=== PATIENT | female | born 1955 | race Caucasian/White ===

== ENCOUNTER 2024-09-07 08:40 | Outpatient (CLI) | payer MEDICARE, OTHER, SELFPAY ==
--- NOTE | ~2024-09-07 | MM_ITS ---
MM post biopsy invasive RT, MM stereotactic specimen RT, MM stereotactic bx RT EXAMINATION: MM post biopsy invasive RT, MM stereotactic specimen RT, MM stereotactic bx RT DATE: Ivan Diehl M.D. INDICATION: Abnormal calcifications in the right breast. Stereotactic core biopsy is requested evalu ate for malignancy.] BREAST PARENCHYMAL COMPOSITION: Not dense: There are scattered areas of fibroglandular density. TECHNIQUE AND FINDINGS: The risks and potential benefits of the procedure were discussed with the patient and written informe d consent was obtained. The patient was placed in the prone position clustered at the table with the right breast in craniocaudal compression, and the area of interest was localized and targeted utiliz ing digital imaging with stereotaxis. After sterile preparation of the skin, 1% lidocaine was utilized for local anesthesia at the skin pun cture site and 1% lidocaine with epinephrine was utilized for deeper local anesthesia/is about the bi opsy site. A 9G Eviva vacuum assisted biopsy needle was advanced to the level of the calcification o f interest from a cephalad approach utilizing stereotactic guidance and a total of 6 tissue core biop sies were obtained. A specimen radiograph demonstrates that the calcifications of interest are included within the tissue cores. A tissue marker clip was then placed at the biopsy site. The needle was removed and hemosta sis was achieved. The patient tolerated the procedure well and there is no evidence of significant i mmediate complication. The patient was given verbal as well as written postprocedural instructions p rior to discharge from the department. Tissue cores were submitted to surgical pathology for histolo gic analysis. A 2-view right unilateral digital mammogram was obtained post procedure and this demonstrates that th e tissue marker clip is in expected position.] IMPRESSION: 1. Successful stereotactic biopsy of calcifications in the upper outer quadrant of the right breast with post procedure mammogram for marker placement. Please refer to pathology report for histologic analysis. Reviewed, dictated and finalized at location B. [facility] CENTER DIRECTOR IMPRESSION: 1. Successful stereotactic biopsy of calcifications in the upper outer quadran t of the right breast with post procedure mammogram for marker placement. Plea se refer to pathology report for histologic analysis. IMPRESSION: 1. Successful stereotactic biopsy of calcifications in the upper outer quadran t of the right breast with post procedure mammogram for marker placement. Plea se refer to pathology report for histologic analysis.
--- OUTSIDE RECORDS SUMMARY | 2024-09-07 08:44 | XMS_ITS | Encounter Summary ---
Author Organization [facility] Address [facility] [place] [address] Care Team Providers Care Bead Picker Name Role Phone Stefanie Hardy MD Primary Care Pr ovider Unavailable Kash Fabian MD Unavailable [phone] Adina Quiñones MD Unavailable Dillan Campoverde MD Unavailable Unavailable Sunny Martinez, SECRETARY BOARD OF COMMISSIONERS-BC, Cora Primary Care Provider Veronica Cui DO Primary Care Provider [phone] Encounter Details Date Type Department Care Team (Late st Contact Info) Description 05/10/2021 MyChart Message Enc [place] [address] [place] [address] Stefanie Hardy MD DEXA Scan Social History Tobacco Use Types Packs/Day Years Used Date Smoking Tobacco: Former Cigarettes 1.5 8 2 008 - 2016 Smokeless Tobacco: Never Comments:quit Alcohol Use Standard Drinks/Week Comments Yes 3 (1 standard drink = 0.6 oz pure alcohol) occassionaly, beer, 3 beers maybe. PHQ-2 Answer Date Recorded PHQ-2 Score - If the patient scores above 3, please move on to questions 3-9 0 01/10/2021 Comments No Sex and Gender Information Value Date Recorded Sex Assigned at Female 01/19/2023 11:28 AM CDT Legal Sex Female 8:04 PM CDT Gender Identity Female 06/30/2021 1:08 PM DEMONSTRATOR KNITTING Sexual Orientation Straight 06/30/2021 1: 08 PM DEMONSTRATOR KNITTING COVID-19 Exposure Response Date Recorded In the last month, have you been in contact with someone who was confirmed or suspected to have Coronavirus / COVID-19? No / Unsure 05/07/2021 1:49 PM CDT documented as of this encounter Plan of Treatment Upcoming Encounters Date Type Department Care Team (Late st Contact Info) Description 02/02/2025 9:20 AM CDT Office Visit [facility] [address] [place] [address] Veronica Cui DO [address] [place] [address] 08/31/2025 10:30 AM DEMONSTRATOR KNITTING Office Visit [facility] [address] [place] [phone] Aaron Duggan MD [address] [address] documented as of this encounter Visit Diagnoses Not on filedocumented in this encounter Additional Health Concerns Assessment Noted Time PHQ-9 Depression Total Score: 0 01/11/20 9:16 AM CDT documented as of this encounter Care Teams Bead Picker Relationship Specialty Start Date End Date Stefanie Hardy MD PCP - General FAMILY PRACTICE 08/15/20 12/21/22 Cora Correa V, [facility]- [address] [place] [address] PCP - General Nurse Practitioner Family 12/22/2201/18 Veronica Cui DO [address] [place] [address] PCP - General FAMILY PRACTICE 01/19/23 Kash Fabian MD [address] [facility] [address] [place] [address] Physician INTERVENTIONAL CARDIOLOGY 09/04/20 Adina Quiñones MD [facility] [address] OBGYN 01/10/21 Dillan Campoverde MD [address] [place] [address] Surgeon GASTROENTEROLOGY 07/09/22 documented as of this encounter
--- OUTSIDE RECORDS SUMMARY | 2024-09-07 08:45 | XMS_ITS | Clinical Summary ---
Author Organization [facility] Address [address] [place] [address] Care Team Providers Care Supervisor Shearing Name Role Phone Veronica Cui DO Primary Care Provider [phone] Allergies Active Allergy Reactions Criticality Noted Date Comments Lisinopril Cough Low 12/04/2022 Tomato Hives Medium 11/02/2018 Medications ibuprofen (ADVIL,MOTRIN) suspension 100 mg/5 mL 800 mg 3 (three) times a day Active vitamin E10-hqnpd acid 0.5-1 mg tablet daily Acti ve cetirizine (ZyrTEC) 1 mg/mL syrup 10 mg daily Active aspirin (ASPIR-LOW) 81 mg enteric coated tablet 81 mg daily Acti ve cholecalciferol (VITAMIN D-3) 1,000 unit tablet 1,000 Units daily Active TOVIAZ 4 mg tablet extended release 24 hr 3 10/07/2018 Activ e Toviaz 8 mg tablet extended release 24 hr Take 8 mg by mouth daily 06/26/2020 Active ibuprofen (ADVIL,MOTRIN) 800 mg tablet Take 800 mg by mouth 3 (three) times a day as needed 07/19/2020 Active Active Problems Problem Noted Date Diagnosed Date Pain in both knees 07/19/2024 Primary osteoarthritis of both knees 07/19/2024 Trochanteric bursitis of left hip 07/05/2024 Left hip pain 07/05/2024 Encounters Date Type Department Care Team Description 07/19/2024 2:45 PM FISHER WEIR Office Visit [facility] Orth[facility]ics and Sports Medicine [address] [place] [phone] Dimitri Jewell PA Pain in both knees, unspecified chronicity (Primary Dx); Primary osteoarthritis of both knees 07/19/2024 2:10 PM FISHER WEIR - 07/19/2024 11:59 PM FISHER WEIR Hospital Encounter [facility] MOB 1 DIAG IMG [address] [place] [address] Chronic pain of right knee; Chronic pain of left knee Discharge Disposition: Discharge to home or self care 07/05/2024 2:00 PM FISHER WEIR Office Visit [facility] Medical [facility] Orth[facility]ics and Sports Medicine [address] [place] [phone] Dimitri Jewell PA Trochanteric bursitis of left hip (Primary Dx); Left hip pain 07/05/2024 1:53 PM FISHER WEIR - 07/05/2024 11:59 PM FISHER WEIR Hospital Encounter [facility] MOB 1 DIAG IMG [address] [place] [address] Left hip pain Discharge Disposition: Discharge to home or self care from Last 3 Months Surgical History Surgery Date Site/Laterality Comments HYSTERECTOMY 07/20/1989 - 07/19/1990 Medical History Medical History Date Comments Hypertension Incontinence in female Family History Medical History Relation Name Comments COPD Father Heart disease Father Cancer Mother Relation Name Status Comments Father Mother colon Social History Tobacco Use Types Packs/Day Years Used Date Smoking Tobacco: Former Smokeless Tobacco: Former Tobacco Cessation:Counseling Given: Not Answered Alcohol Use Standard Drinks/Week Comments Yes 0 (1 standard drink = 0.6 oz pur e alcohol) socially Comments No Sex and Gender Information Value Date Recorded Sex Assigned at Not on file Legal Sex Female 5:57 PM FISHER WEIR Gender Identity Not on file Sexual Orientation Not on file 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 on file Not on file Not on file Obstetrics History Para Term AB IAB SAB Ectopic Multiple Livin g Live Births 2 2 2 2 2 Date Outcome GA Total Labor Labor/2nd/3rd Weight Sex Type Anes PTL Lashaun A1 A5 Name Clin 1971 Term 3.487 kg (7 lb 11 oz) Vag-S pont Living 1985 Term 3.487 kg (7 lb 11 oz) Vag-S pont Living Last Filed Vital Signs Vital Sign Reading Time Taken Comments Blood Pressure 138/72 08/21/2020 11:32 AM FISHER WEIR Pulse 0 04/24/2016 10:00 AM CDT Temperature - - Respiratory Rate - - Oxygen Saturation - - Inhaled Oxygen Concentration - - Weight 61.2 kg (135 lb) 07/19/2024 3:06 PM FISHER WEIR Height 154.9 cm (5' 1 ) 07/19/2024 3:06 PM FISHER WEIR Body Mass Index 25.51 07/19/2024 3:06 PM FISHER WEIR Plan of Treatment Health Maintenance Due Date Last Done Comments Colon Cancer Screening-Colonoscopy 1955 Depression Screening 1955 Fall Risk Assessment 1955 Hepatitis C Screening 1955 Hepatitis B Screening 1971 Well Visit 65+ 08/21/2021 08/21/2020, 08/16/2019 Pneumococcal vaccine 65+ (2 of 2 - PCV) 12/31/2021 12/31/2020 Covid-19 Vaccine ( season) 2024 04/23/2021, 09/27/2020, 09/06/2020 Influenza Vaccine (#1) 2024 , 04/23/2021, 06/04/2020 Breast Cancer Screening-Mammogram 04/20/2024 04/20/2023, 04/20/2023, 02/21/2021 Osteoporosis Screening-Bone Density Scan 04/20/2025 04/20/2023 DTaP/Tdap/Td Vaccine (2 - Td or Tdap) 10/04/2031 Zoster Vaccine Completed 12/06/2021, 10/03/2021 Procedures Procedure Name Priority Date/Time Associated Diagnosis Comments WI ARTHROCENTESIS ASPIR&/INJ MAJOR JT/BURSA W/O US Routine 07/19/2024 2:45 PM FISHER WEIR Pain in both knees, unspecified chronicity Primary osteoarthritis of both knees WI ARTHROCENTESIS ASPIR&/INJ MAJOR JT/BURSA W/O US Routine 07/19/2024 2:45 PM FISHER WEIR Pain in both knees, unspecified chronicity Primary osteoarthritis of both knees XR KNEE LEFT 3 VIEWS Schedule Routine, Read Routine (OP Routine) 07/19/2024 2:19 PM FISHER WEIR Chronic pain of left knee XR KNEE RIGHT 3 VIEWS Schedule Routine, Read Routine (OP Routine) 07/19/2024 2:19 PM FISHER WEIR Chronic pain of right knee XR HIP LEFT 2 OR 3 VIEWS Schedule Routine, Read Routine (OP Routine) 07/05/2024 1:59 PM FISHER WEIR Left hip pain from Last 3 Months Results * WI ARTHROCENTESIS ASPIR&/INJ MAJOR JT/BURSA W/O US (07/19/2024 2:45 PM FISHER WEIR) Narrative Frantz Nguyen MD - 07/19/2024 2:45 PM FISHER WEIR Dimitri Jewell PA 07/19/2024 4:23 PM Large Joint (Hip, Knee, Shoulder) Injection: L knee Performed by: Dimitri Jewell PA Authorized by: Dimitri Jewell PA Large Joint Injection/Aspiration: Consent Given by: Patient Site marked: the procedure site was marked Timeout: prior to procedure the correct patient, procedure, and site was verified Verbal consent obtained: Yes Supporting Documentation: Indications: Pain Procedure Details: Location: Knee Site: L knee Prep: patient was prepped and draped in usual sterile fashion Needle Size: 22 G Approach: Anterolateral Ultrasound guided: No Fluroscopic guidance: No Medications: 2 mL lidocaine 10 mg/mL (1 %); 40 mg triamcinolone 40 mg/mL Patient tolerance: Patient tolerated the procedure well with no immediate complications us Dimitri SMITH IN CLINIC/BEDSIDE ORD ERABLES Final Result * WI ARTHROCENTESIS ASPIR&/INJ MAJOR JT/BURSA W/O US (07/19/2024 2:45 PM FISHER WEIR) Narrative Frantz Nguyen MD - 07/19/2024 2:45 PM FISHER WEIR Dimitri Jewell PA 07/19/2024 4:23 PM Large Joint (Hip, Knee, Shoulder) Injection: R knee Performed by: Dimitri Jewell PA Authorized by: Dimitri Jewell PA Large Joint Injection/Aspiration: Consent Given by: Patient Site marked: the procedure site was marked Timeout: prior to procedure the correct patient, procedure, and site was verified Verbal consent obtained: Yes Supporting Documentation: Indications: Pain Procedure Details: Location: Knee Site: R knee Prep: patient was prepped and draped in usual sterile fashion Needle Size: 22 G Approach: Anterolateral Ultrasound guided: No Medications: 2 mL lidocaine 10 mg/mL (1 %); 40 mg triamcinolone 40 mg/mL Patient tolerance: Patient tolerated the procedure well with no immediate complications us Dimitri SMITH IN CLINIC/BEDSIDE ORD ERABLES Final Result * XR Knee Right 3 View (07/19/2024 2:19 PM FISHER WEIR) Anatomical Region Laterality Modality Lower Extremities, Knee Right Computed Radiography 07/19/2024 6:51 PM FISHER WEIR Narrative 07/19/2024 6:54 PM FISHER WEIR EXAM DESCRIPTION: XR KNEE RIGHT 3 VIEWS XR KNEE LEFT 3 VIEWS REASON FOR STUDY: right knee pain left knee pain Chronic pain in bilateral knees, nki FINDINGS: Three views each knee submitted with comparison 11/02/2018. No acute fractures are identified. Alignment is normal. There is mild patellofemoral compartment right knee osteoarthritis. There is mild medial and patellofemoral bicompartmental left knee osteoarthritis. Small right knee effusion is present. There is no left knee effusion. IMPRESSION: Mild patellofemoral compartment right knee osteoarthritis with a small effusion. Mild medial and patellofemoral bicompartmental left knee osteoarthritis. THIS IS AN ELECTRONICALLY VERIFIED FINAL REPORT 07/19/2024 6:54 PM - Electronically signed by Lalo Lazcano M.D. MF: PILLO Report ID: [id number] Reading Location: [id number] Procedure Note Lalo Lazcano MD - 07/19/2024 EXAM DESCRIPTION: XR KNEE RIGHT 3 VIEWS XR KNEE LEFT 3 VIEWS REASON FOR STUDY: right knee pain left knee pain Chronic pain in bilateral knees, nki FINDINGS: Three views each knee submitted with comparison 11/02/2018. No acute fractures are identified. Alignment is normal. There is mild patellofemoral compartment right knee osteoarthritis. There is mildmedial and patellofemoral bicompartmental left knee osteoarthritis. Small rightknee effusion is present. There is no left knee effusion. IMPRESSION: Mild patellofemoral compartment right knee osteoarthritis with a small effusion. Mild medial and patellofemoral bicompartmental left kneeosteoarthritis. THIS IS AN ELECTRONICALLY VERIFIED FINAL REPORT 07/19/2024 6:54 PM - Electronically signed by Lalo Lazcano M.D. MF: PILLO Report ID: [id number] Reading Location: [id number] Dimitri SMITH IMG XR PROCEDURES Fin al Result * XR Knee Left 3 View (07/19/2024 2:19 PM FISHER WEIR) Anatomical Region Laterality Modality Lower Extremities, Knee Left Computed Radiography 07/19/2024 6:51 PM FISHER WEIR Narrative 07/19/2024 6:54 PM FISHER WEIR EXAM DESCRIPTION: XR KNEE RIGHT 3 VIEWS XR KNEE LEFT 3 VIEWS REASON FOR STUDY: right knee pain left knee pain Chronic pain in bilateral knees, nki FINDINGS: Three views each knee submitted with comparison 11/02/2018. No acute fractures are identified. Alignment is normal. There is mild patellofemoral compartment right knee osteoarthritis. There is mild medial and patellofemoral bicompartmental left knee osteoarthritis. Small right knee effusion is present. There is no left knee effusion. IMPRESSION: Mild patellofemoral compartment right knee osteoarthritis with a small effusion. Mild medial and patellofemoral bicompartmental left knee osteoarthritis. THIS IS AN ELECTRONICALLY VERIFIED FINAL REPORT 07/19/2024 6:54 PM - Electronically signed by Lalo Lazcano M.D. MF: PILLO Report ID: [id number] Reading Location: [id number] Procedure Note Lalo Lazcano MD - 07/19/2024 EXAM DESCRIPTION: XR KNEE RIGHT 3 VIEWS XR KNEE LEFT 3 VIEWS REASON FOR STUDY: right knee pain left knee pain Chronic pain in bilateral knees, nki FINDINGS: Three views each knee submitted with comparison 11/02/2018. No acute fractures are identified. Alignment is normal. There is mild patellofemoral compartment right knee osteoarthritis. There is mildmedial and patellofemoral bicompartmental left knee osteoarthritis. Small rightknee effusion is present. There is no left knee effusion. IMPRESSION: Mild patellofemoral compartment right knee osteoarthritis with a small effusion. Mild medial and patellofemoral bicompartmental left kneeosteoarthritis. THIS IS AN ELECTRONICALLY VERIFIED FINAL REPORT 07/19/2024 6:54 PM - Electronically signed by Lalo Lazcano M.D. MF: PILLO Report ID: [id number] Reading Location: [id number] Dimitri SMITH IMG XR PROCEDURES Fin al Result * XR Hip Left 2 or 3 Views (07/05/2024 1:59 PM FISHER WEIR) Anatomical Region Laterality Modality Lower Extremities, Hip, Pelvis Left C omputed Radiography 07/06/2024 8:14 AM FISHER WEIR Narrative 07/06/2024 8:14 AM FISHER WEIR EXAM DESCRIPTION: XR HIP LEFT 2 OR 3 VIEWS REASON FOR STUDY: PAIN Chronic pain FINDINGS: Two views submitted without comparison. No acute fractures are identified. Alignment is normal. There is mild left hip osteoarthritis. 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 IMPRESSION: Mild left hip osteoarthritis. 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 THIS IS AN ELECTRONICALLY VERIFIED FINAL REPORT 07/06/2024 8:14 AM - Electronically signed by Lalo Lazcano M.D. MF: PILLO Report ID: [id number] Reading Location: [id number] Procedure Note Lalo Lazcano MD - 07/06/2024 EXAM DESCRIPTION: XR HIP LEFT 2 OR 3 VIEWS REASON FOR STUDY: PAIN Chronic pain FINDINGS: Two views submitted without comparison. No acute fractures are identified. Alignment is normal. There is mildleft hip osteoarthritis. 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 IMPRESSION: Mild left hip osteoarthritis. 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 THIS IS AN ELECTRONICALLY VERIFIED FINAL REPORT 07/06/2024 8:14 AM - Electronically signed by Lalo Lazcano M.D. MF: PILLO Report ID: [id number] Reading Location: [id number] Dimitri SMITH IMG XR PROCEDURES Fin al Result from Last 3 Months Insurance HUMAN MEDICARE HMO [employer] Care Teams Supervisor Shearing Relationship Specialty Start Date End Date Veronica Cui DO [address] [place] [address] [place] [address] PCP - General Sports Medicine 07/19/24
--- OUTSIDE RECORDS SUMMARY | 2024-09-07 08:45 | XMS_ITS | Encounter Summary ---
Author Organization [facility] Address [facility] [place] [address] Care Team Providers Care High School Guidance Counselor Name Role Phone Stefanie Hardy MD Primary Care Pr ovider Unavailable Kash Fabian MD Unavailable [phone] Adina Quiñones MD Unavailable Dillan Campoverde MD Unavailable Unavailable Sunny Martinez, SENIOR PHYSICIAN-BC, Cora Primary Care Provider Veronica Cui DO Primary Care Provider Encounter Details Date Type Department Care Team (Late st Contact Info) Description 11/21/2021 Prep for Procedure [facility] General Surgery - [address], [address] [place] [address] Dillan Campoverde MD Social History Tobacco Use Types Packs/Day Years Used Date Smoking Tobacco: Former Cigarettes 1.5 8 2 008 - 2016 Smokeless Tobacco: Never Comments:quit Alcohol Use Standard Drinks/Week Comments Yes 3 (1 standard drink = 0.6 oz pure alcohol) occassionaly, beer, 3 beers maybe. 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 No / Unsure 11/22/2021 10:38 AM CDT documented as of this encounter Plan of Treatment Upcoming Encounters Date Type Department Care Team (Late st Contact Info) Description 02/02/2025 9:20 AM CDT Office Visit [facility] [address] [place] [address] Veronica Cui DO [address] [place] [address] 08/31/2025 10:30 AM DIRECTOR HRIS [facility] [address] [place] [address] Aaron Duggan MD [address] [address] documented as of this encounter Visit Diagnoses Not on filedocumented in this encounter Additional Health Concerns Assessment Noted Time PHQ-9 Depression Total Score: 0 10/02/19 22 10:08 AM CDT documented as of this encounter Care Teams High School Guidance Counselor Relationship Specialty Start Date End Date Stefanie Hardy MD PCP - General FAMILY PRACTICE 08/15/20 12/21/22 Cora Correa FNP- [address] [place], [place] [id number] PCP - General Nurse Practitioner Family 12/22/2201/18 Veronica Cui DO [address] [place] [id number] PCP - General FAMILY PRACTICE 01/19/23 Kash Fabian MD [address] [place] [address] [address] [place] [address] Physician INTERVENTIONAL CARDIOLOGY 09/04/20 Adina Quiñones MD [address] [place] [phone] OBGYN 01/10/21 Dillan Campoverde MD [address] [place] [address] Surgeon GASTROENTEROLOGY 07/09/22 documented as of this encounter
--- OUTSIDE RECORDS SUMMARY | 2024-09-07 08:45 | XMS_ITS | Encounter Summary ---
Author Organization [facility] Address Replaced by [facility] [place] [address] Care Team Providers Care Eyewear Manufacturing Tech Name Role Phone Stefanie Hardy MD Primary Care Pr ovider Unavailable Kash Fabian MD Unavailable [phone] Adina Quiñones MD Unavailable Dillan Campoverde MD Unavailable Unavailable Sunny Martinez, COST ESTIMATING ENGINEER-BC, Cora Primary Care Provider Veronica Cui DO Primary Care Provider [phone] Encounter Details Date Type Department Care Team ([facility] Contact Info) Description 11/15/2020 Radiology [facility] [address] [place] [address] Kash Fabian MD [address] [facility] [address] [place] [address] Social History Tobacco Use Types Packs/Day Years Used Date Smoking Tobacco: Former Cigarettes Q uit: 2016 Smokeless Tobacco: Never Comments:PCP to counseling aide Alcohol Use Standard Drinks/Week Comments Yes 0 (1 standard drink = 0.6 oz pure alcohol) occassionaly, beer, 3 beers maybe. PHQ-2 Answer Date Recorded PHQ-2 Score - If the patient scores above 3, please move on to questions 3-9 0 08/23/2020 Comments Unknown Sex and Gender Information Value Date Recorded Sex Assigned at Female 01/19/2023 11:28 AM CDT Legal Sex Female 8:04 PM CDT Gender Identity Female 06/30/2021 1:08 PM CHEF DE CUISINE Sexual Orientation Straight 06/30/2021 1: 08 PM CHEF DE CUISINE COVID-19 Exposure Response Date Recorded In the last month, have you been in contact with someone who was confirmed or suspected to have Coronavirus / COVID-19? No / Unsure 11/13/2020 12:32 PM CDT documented as of this encounter Plan of Treatment Upcoming Encounters Date Type Department Care Team (Late st Contact Info) Description 02/02/2025 9:20 AM CDT [facility] Visit [facility] [address] [place] [address] Veronica Cui DO [address] [place] [address] 08/31/2025 10:30 AM CHEF DE CUISINE [facility] [address] [facility] [address] [facility] [place] [phone] Aaron Duggan MD [address] [address] documented as of this encounter Visit Diagnoses Not on filedocumented in this encounter Additional Health Concerns Assessment Noted Time PHQ-9 Depression Total Score: 1 08/23/19 21 2:21 PM CHEF DE CUISINE documented as of this encounter Care Teams Eyewear Manufacturing Tech Relationship Specialty Start Date End Date Stefanie Hardy MD PCP - General FAMILY PRACTICE 08/15/20 12/21/22 [facility] [address] [place] [address] [place] [address] PCP - General Nurse Practitioner Family 12/22/2201/18 Veronica Cui DO [address] [place] [address] PCP - General FAMILY PRACTICE 01/19/23 Kash Fabian MD [address] [place] [address] [address] [place] [address] Physician INTERVENTIONAL CARDIOLOGY 09/04/20 Adina Quiñones MD [address] [place] [address] OBGYN 01/10/21 Dillan Campoverde MD [address] [place] [address] Surgeon GASTROENTEROLOGY 07/09/22 documented as of this encounter
--- OUTSIDE RECORDS SUMMARY | 2024-09-07 08:45 | XMS_ITS | Referral Summary ---
Author Organization [facility] Address [facility]4 [place] [address] Care Team Providers Care Supervisor Winding Department Name Role Phone Veronica Cui DO Primary Care Provider [phone] Encounters Date Type Department Care Team Description 07/19/2024 2:10 PM PARTY COORDINATOR - 07/19/2024 11:59 PM PARTY COORDINATOR Hospital Encounter [facility] MOB 1 DIAG IMG [address] [place] [address] [id number] Chronic pain of right knee; Chronic pain of left knee Discharge Disposition: Discharge to home or self care 07/19/2024 2:45 PM PARTY COORDINATOR Office Visit [facility] Orthopedics and Sports Medicine [address] [facility] [address] [place] [address] Dimitri Jewell PA Pain in both knees, unspecified chronicity (Primary Dx); Primary osteoarthritis of both knees 07/05/2024 1:53 PM PARTY COORDINATOR - 07/05/2024 11:59 PM PARTY COORDINATOR Hospital Encounter [facility] MOB 1 DIAG IMG [address] [place] [address] [phone] Left hip pain Discharge Disposition: Discharge to home or self care 07/05/2024 2:00 PM PARTY COORDINATOR Office Visit [facility] Orthopedics and Sports Medicine [address] [place] [phone] Dimitri Jewell PA Trochanteric bursitis of left hip (Primary Dx); Left hip pain from Last 3 Months Allergies Active Allergy Reactions Criticality Noted Date Comments Lisinopril Cough Low 12/04/2022 Tomato Hives Medium 11/02/2018 Medications ibuprofen (ADVIL,MOTRIN) suspension 100 mg/5 mL 800 mg 3 (three) times a day Active vitamin N02-aqfja acid 0.5-1 mg tablet daily Acti ve [...] left hip 07/05/2024 Left hip pain 07/05/2024 Social History Tobacco Use Types Packs/Day Years Used Date Smoking Tobacco: Former Smokeless Tobacco: Former Tobacco Cessation:Counseling Given: Not Answered Alcohol Use Standard Drinks/Week Comments Yes 0 (1 standard drink = 0.6 oz pur e alcohol) socially Comments No Sex and Gender Information Value Date Recorded Sex Assigned at Not on file Legal Sex Female 5:57 PM PARTY COORDINATOR Gender Identity Not on file Sexual Orientation Not on file 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 Not on file Not on file Not on file Last Filed Vital Signs Vital Sign Reading Time Taken Comments Blood Pressure 138/72 08/21/2020 11:32 AM PARTY COORDINATOR Pulse 0 04/24/2016 10:00 AM CDT Temperature - - Respiratory Rate - - Oxygen Saturation - - Inhaled Oxygen Concentration - - Weight 61.2 kg (135 lb) 07/19/2024 3:06 PM PARTY COORDINATOR Height 154.9 cm (5' 1 ) 07/19/2024 3:06 PM PARTY COORDINATOR Body Mass Index 25.51 07/19/2024 3:06 PM PARTY COORDINATOR Plan of Treatment Not on file Procedures Procedure Name Priority Date/Time Associated Diagnosis Comments AL ARTHROCENTESIS ASPIR&/INJ MAJOR JT/BURSA W/O US Routine 07/19/2024 2:45 PM PARTY COORDINATOR Pain in both knees, unspecified chronicity Primary osteoarthritis of both knees AL ARTHROCENTESIS ASPIR&/INJ MAJOR JT/BURSA W/O US Routine 07/19/2024 2:45 PM PARTY COORDINATOR Pain in both knees, unspecified chronicity Primary osteoarthritis of both knees XR KNEE LEFT 3 VIEWS Schedule Routine, Read Routine (OP Routine) 07/19/2024 2:19 PM PARTY COORDINATOR Chronic pain of left knee XR KNEE RIGHT 3 VIEWS Schedule Routine, Read Routine (OP Routine) 07/19/2024 2:19 PM PARTY COORDINATOR Chronic pain of right knee XR HIP LEFT 2 OR 3 VIEWS Schedule Routine, Read Routine (OP Routine) 07/05/2024 1:59 PM PARTY COORDINATOR Left hip pain from Last 3 Months Results * AL ARTHROCENTESIS ASPIR&/INJ MAJOR JT/BURSA W/O US (07/19/2024 2:45 PM PARTY COORDINATOR) Frantz Eddy MD - 07/19/2024 2:45 PM PARTY COORDINATOR Dimitri Jewell PA 07/19/2024 4:23 PM Large [...] the procedure well with no immediate complications Dimitri SMITH IN CLINIC/BEDSIDE ORD ERABLES Final Result * AL ARTHROCENTESIS ASPIR&/INJ MAJOR JT/BURSA W/O US (07/19/2024 2:45 PM PARTY COORDINATOR) Narrative Frnatz Nguyen MD - 07/19/2024 2:45 PM PARTY COORDINATOR Dimitri Jewell PA 07/19/2024 4:23 PM Large [...] the procedure well with no immediate complications Dimitri SMITH IN CLINIC/BEDSIDE ORD ERABLES Final Result * XR Knee Right 3 View (07/19/2024 2:19 PM PARTY COORDINATOR) Anatomical Region Laterality Modality Lower Extremities, Knee Right Computed Radiography 07/19/2024 6:51 PM PARTY COORDINATOR Narrative 07/19/2024 6:54 PM PARTY COORDINATOR EXAM DESCRIPTION: XR KNEE RIGHT 3 VIEWS [...] Lalo Lazcano M.D. MF: PILLO Report ID: [id number] Reading Location: [id number] Procedure Note Lalo Lazcano MD - 07/19/2024 [...] Lalo Lazcano M.D. MF: PILLO Report ID: [id number] Reading Location: [id number] Dimitri SMITH IMG XR PROCEDURES Fin al Result * XR Knee Left 3 View (07/19/2024 2:19 PM PARTY COORDINATOR) Anatomical Region Laterality Modality Lower Extremities, Knee Left Computed Radiography 07/19/2024 6:51 PM PARTY COORDINATOR Narrative 07/19/2024 6:54 PM PARTY COORDINATOR EXAM DESCRIPTION: XR KNEE RIGHT 3 VIEWS [...] Lalo Lazcano M.D. MF: PILLO Report ID: [id number] Reading Location: [id number] Procedure Note Lalo Lazcano MD - 07/19/2024 [...] Lalo Lazcano M.D. MF: PILLO Report ID: [id number] Reading Location: [id number] Dimitri SMITH IMOdin XR PROCEDURES Fin al Result * XR Hip Left 2 or 3 Views (07/05/2024 1:59 PM PARTY COORDINATOR) Anatomical Region Laterality Modality Lower Extremities, Hip, Pelvis Left C omputed Radiography 07/06/2024 8:14 AM PARTY COORDINATOR Narrative 07/06/2024 8:14 AM PARTY COORDINATOR EXAM DESCRIPTION: XR HIP LEFT 2 OR [...] Lalo Lazcano M.D. MF: PILLO Report ID: [id number] Reading Location: [id number] Procedure Note Lalo Lazcano MD - 07/06/2024 [...] Lalo Lazcano M.D. MF: PILLO Report ID: [id number] Reading Location: [id number] Dimitri SMITH IMG XR PROCEDURES Fin al Result from Last 3 Months Insurance [employer] MEDICARE HMO FOR LIFE Care Teams Supervisor Winding Department Relationship Specialty Start Date End Date Veronica Cui DO [address] [place] [address] [place] [address] PCP - General Sports Medicine 07/19/24
--- OUTSIDE RECORDS SUMMARY | 2024-09-07 08:45 | XMS_ITS | Encounter Summary ---
Author Organization [facility] Address [facility] [place] [address] Care Team Providers Care Psychological Assistant Name Role Phone Kash Fabian MD Unavailable [phone] Adina Quiñones MD Unavailable Dillan Campoverde MD Unavailable Unavailable Veronica Cui DO Primary Care Provider [phone] Encounter Details Date Type Department Care Team (Latest Contact Info) Description 08/23/2024 Scan HEALTH INFO SRVCS Scanned, Doc Med Group Social History Tobacco Use Types Packs/Day Years Used Date Smoking Tobacco: Former Cigarettes 1 10 0 07/20/2005 - 07/20/2015 Passive Smoke Exposure: Past Smokeless Tobacco: Never Comments:Quit-quit about 45 y old. When gdtr was born Alcohol Use Standard Drinks/Week Comments Yes 8.3 (1 standard drin k = 0.6 oz pure alcohol) occassionaly, beer, 3 beers/1-2 w. 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 [address] [place], [place] [address] documented as of this encounter Visit Diagnoses Not on filedocumented in this encounter Additional Health Concerns Assessment Noted Time PHQ-9 Depression Total Score: 0 10/02/19 10:08 AM CDT documented as of this encounter Care Teams Psychological Assistant Relationship Specialty Start Date End Date Veronica Cui DO [address] [place] [address] PCP - General FAMILY PRACTICE 01/19/23 Kash Fabian MD [address] [facility] [address] [place] [address] Physician INTERVENTIONAL CARDIOLOGY 09/04/20 Adina Quiñones MD [address] [facility] [address] [place] [address] OBGYN 01/10/21 Dillan Campoverde MD [address] [facility] [address] [place] [address] Surgeon GASTROENTEROLOGY 07/09/22 documented as of this encounter
--- OUTSIDE RECORDS SUMMARY | 2024-09-07 08:45 | XMS_ITS | Encounter Summary ---
Author Organization [facility] Address [facility] [place] [address] Care Team Providers Care Social Media Coordinator Name Role Phone Stefanie Hardy MD Primary Care Pr ovider Unavailable Kash Fabian MD Unavailable [phone] Adina Quiñones MD Unavailable Dillan Campoverde MD Unavailable Unavailable Sunny Martinez, DIESEL DINKEY ENGINEER-BC, Cora Primary Care Provider Veronica Cui DO Primary Care Provider [phone] Encounter Details Date Type Department Care Team (Latest Contact Info) Description 07/16/2021 MyChart Message Enc [facility] Multispecialty Care - [facility] [address] [facility], [address] [place] [address] Shin Mcmullen MD [address] [place], [place] [phone] Physical Therapy Social History Tobacco Use Types Packs/Day Years [...] CDT Gender Identity Female 06/30/2021 1:08 PM PLASTICS FABRICATOR Sexual Orientation Straight 06/30/2021 1: 08 PM PLASTICS FABRICATOR COVID-19 Exposure Response Date Recorded In the last month, have you been in contact with someone who was confirmed or suspected to have Coronavirus / COVID-19? No / Unsure 07/02/2021 9:22 AM PLASTICS FABRICATOR documented as of this encounter Plan of Treatment Upcoming Encounters Date Type Department Care Team (Late st Contact Info) Description 02/02/2025 9:20 AM CDT Office Visit [facility] [address] [place] [address] Veronica Cui DO [address] [place] [address] 08/31/2025 10:30 AM PLASTICS FABRICATOR [facility] [address] [facility] [phone] Aaron Duggan MD [address] [address] documented as of this encounter Visit Diagnoses Not on filedocumented in this encounter Additional Health Concerns Assessment Noted Time PHQ-9 Depression Total Score: 0 01/11/20 9:16 AM CDT documented as of this encounter Care Teams Social Media Coordinator Relationship Specialty Start Date End Date Stefanie Hardy MD PCP - General FAMILY PRACTICE 08/15/20 12/21/22 Cora Correa V, [facility] [address] [place] [address] PCP - General Nurse Practitioner Family 12/22/2201/18 Veronica Cui DO [address] [place] [address] [place] [address] PCP - General FAMILY PRACTICE 01/19/23 Kash Fabian MD [facility] E [facility] [address] [place] [address] Physician INTERVENTIONAL CARDIOLOGY 09/04/20 Adina Quiñones MD [facility] [address] OBGYN 01/10/21 Dillan Campoverde MD [address] [place] [address] Surgeon GASTROENTEROLOGY 07/09/22 documented as of this encounter
--- OUTSIDE RECORDS SUMMARY | 2024-09-07 08:45 | XMS_ITS | Encounter Summary ---
Author Organization [facility] Address [facility] [place] [address] Care Team Providers Care Casting House Worker Name Role Phone Stefanie Hardy MD Primary Care Pr ovider Unavailable Kash Fabian MD Unavailable [phone] Adina Quiñones MD Unavailable Dillan Campoverde MD Unavailable Unavailable Sunny Martinez, ARSON INVESTIGATOR-BC, Cora Primary Care Provider Veronica Cui DO Primary Care Provider [phone] Encounter Details Date Type Department Care Team (Late st Contact Info) Description 04/16/2022 Prep for Procedure [facility] [address] [place] [address] Dillan Campoverde MD Social History Tobacco Use [...] please move on to questions 3-9 0 01/06/2022 Comments No Sex and Gender Information Value Date Recorded Sex Assigned at Female 01/19/2023 11:28 AM CDT Legal Sex Female 8:04 PM CDT Gender Identity Female 06/30/2021 1:08 PM PHARMACEUTICAL SALES Sexual Orientation Straight 06/30/2021 1: 08 PM PHARMACEUTICAL SALES 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 No / Unsure 04/07/2022 9:15 AM CDT documented as of this encounter Plan of Treatment Upcoming Encounters Date Type Department Care Team (Late st Contact Info) Description 02/02/2025 9:20 AM CDT Office Visit [facility] [address] [place] [address] Veronica Cui DO [address] [place] [address] 08/31/2025 10:30 AM PHARMACEUTICAL SALES Office Visit [facility] [address] [place] [phone] Aaron Duggan MD [address] [address] documented as of this encounter Visit Diagnoses Not on filedocumented in this encounter Additional Health Concerns Assessment Noted Time PHQ-9 Depression Total Score: 0 10/02/19 22 10:08 AM CDT documented as of this encounter Care Teams Casting House Worker Relationship Specialty Start Date End Date Stefanie Hardy MD PCP - General FAMILY PRACTICE 08/15/20 12/21/22 Cora Correa V [facility] [address] [place] [phone] PCP - General Nurse Practitioner Family 12/22/2201/18 Veronica Cui DO [address] [place] [phone] PCP - General FAMILY PRACTICE 01/19/23 Kash Fabian MD [address] [facility] [address] [place] [address] Physician INTERVENTIONAL CARDIOLOGY 09/04/20 Adina Quiñones MD [address] [place] [address] [place] [address] OBGYN 01/10/21 Dillan Campoverde MD [address] [place] [address] Surgeon GASTROENTEROLOGY 07/09/22 documented as of this encounter
--- OUTSIDE RECORDS SUMMARY | 2024-09-07 08:45 | XMS_ITS | Encounter Summary ---
Author Organization [facility] Address Pending [facility] to [facility] [place] [address] Care Team Providers Care Computer Laboratory Technician Name Role Phone Stefanie Hardy MD Primary Care Pr ovider Unavailable Kash Fabian MD Unavailable Adina Quiñones MD Unavailable Dillan Campoverde MD Unavailable Unavailable Sunny Martinez, GOLF CLUB HEAD INSPECTOR-BC, Cora Primary Care Provider Veronica Cui DO Primary Care Provider [phone] Encounter Details Date Type Department Care Team (Latest Contact Info) Description 02/03/2021 MyChart Message Enc [facility] Medical Group Multispecialty Care - [facility] [address] [facility], [address] [place] [address] Shin Mcmullen MD [address] [place] [address] RE: Medication Questions Social History Tobacco Use Types Packs/Day Years [...] CDT Gender Identity Female 06/30/2021 1:08 PM QI SPECIALIST Sexual Orientation Straight 06/30/2021 1: 08 PM QI SPECIALIST COVID-19 Exposure Response Date Recorded In the last month, have you been in contact with someone who was confirmed or suspected to have Coronavirus / COVID-19? No / Unsure 02/06/2021 10:14 AM CDT documented as of this encounter Plan of Treatment Upcoming Encounters Date Type Department Care Team (Late st Contact Info) Description 02/02/2025 9:20 AM CDT Office Visit [facility] [address] [place] [address] Veronica Cui DO [address] [place] [address] 08/31/2025 10:30 AM QI SPECIALIST [facility] [address] [facility] [place] [place] [phone] Aaron Duggan MD [address] [address] documented as of this encounter Visit Diagnoses Not on filedocumented in this encounter Additional Health Concerns Assessment Noted Time PHQ-9 Depression Total Score: 0 01/11/20 9:16 AM CDT documented as of this encounter Care Teams Computer Laboratory Technician Relationship Specialty Start Date End Date Stefanie Hardy MD PCP - General FAMILY PRACTICE 08/15/20 12/21/22 Cora Correa V [employer] HEAD INSPECTOR- [address] [place] [address] PCP - General Nurse Practitioner Family 12/22/2201/18 Veronica Cui DO [address] [place] [address] [place] [address] PCP - General FAMILY PRACTICE 01/19/23 Kash Fabian MD [address] [place] [address] [address] [place] [address] Physician INTERVENTIONAL CARDIOLOGY 09/04/20 Adina Quiñones MD [facility] [address] OBGYN 01/10/21 Dillan Campoverde MD [address] [place] [address] Surgeon GASTROENTEROLOGY 07/09/22 documented as of this encounter
--- OUTSIDE RECORDS SUMMARY | 2024-09-07 08:45 | XMS_ITS | Encounter Summary ---
Author Organization [facility] Address [facility] [place] [address] Care Team Providers Care Young Adult Librarian Name Role Phone Setfanie Hardy MD Primary Care Pr ovider Unavailable Kash Fabian MD Unavailable [phone] Adina Quiñones MD Unavailable Dillan Campoverde MD Unavailable Unavailable Sunny Martinez, BULB PACKER-BC, Cora Primary Care Provider Veronica Cui DO Primary Care Provider [phone] Encounter Details Date Type Department Care Team (Late st Contact Info) Description 05/01/2022 MyChart Message [facility] Multispecialty Care - [address] [place] [address] Stefanie Hardy MD Medication refill Social History Tobacco Use Types Packs/Day Years [...] CDT Gender Identity Female 06/30/2021 1:08 PM PRINCIPAL SYSTEMS ENGINEER Sexual Orientation Straight 06/30/2021 1: 08 PM PRINCIPAL SYSTEMS ENGINEER 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 No / Unsure 04/21/2022 10:36 AM CDT documented as of this encounter Plan of Treatment Upcoming Encounters Date Type Department Care Team (Late st Contact Info) Description 02/02/2025 9:20 AM CDT Office Visit [facility] [address] [place] [address] Veronica Cui DO [address] [place] [address] 08/31/2025 10:30 AM PRINCIPAL SYSTEMS ENGINEER [facility] [address] [facility] [place] [phone] Aaron Duggan MD [address] [address] documented as of this encounter Visit Diagnoses Not on filedocumented in this encounter Additional Health Concerns Assessment Noted Time PHQ-9 Depression Total Score: 0 10/02/19 22 10:08 AM CDT documented as of this encounter Care Teams Young Adult Librarian Relationship Specialty Start Date End Date Stefanie Hardy MD PCP - General FAMILY PRACTICE 08/15/20 12/21/22 [facility] [address] [facility] [place] [address] PCP - General Nurse Practitioner Family 12/22/2201/18 Veronica Cui DO [address] [facility] [place] [address] PCP - General FAMILY PRACTICE 01/19/23 Kash Fabian MD [address] [place] [address] [address] [place] [address] Physician INTERVENTIONAL CARDIOLOGY 09/04/20 Adina Quiñones MD [address] [place] [address] OBGYN 01/10/21 Dillan Campoverde MD [address] [place] [address] Surgeon GASTROENTEROLOGY 07/09/22 documented as of this encounter
--- OUTSIDE RECORDS SUMMARY | 2024-09-07 08:45 | XMS_ITS | Encounter Summary ---
Author Organization [facility] Address [facility] [place] [address] Care Team Providers Care Inside Horticultural Specialty Grower Name Role Phone Stefanie Hardy MD Primary Care Pr ovider Unavailable Kash Fabian MD Unavailable [phone] Adina Quiñones MD Unavailable Dillan Campoverde MD Unavailable Unavailable Sunny Martinez, CIVIL ENGINEERING PROJECT MANAGER-BC, Cora Primary Care Provider Veronica Cui DO Primary Care Provider [phone] Encounter Details Date Type Department Care Team (Latest Contact Info) Description 06/17/2021 AddonTVt Message [facility] [place] [address] Kash Fabian MD [address] [facility] [address] [place] [address] Hydrochlorothiazide 25mg Tablet Social History Tobacco Use Types Packs/Day Years [...] CDT Gender Identity Female 06/30/2021 1:08 PM BRICK STACKER Sexual Orientation Straight 06/30/2021 1: 08 PM BRICK STACKER COVID-19 Exposure Response Date Recorded In the last month, have you been in contact with someone who was confirmed or suspected to have Coronavirus / COVID-19? No / Unsure 06/17/2021 1:36 PM BRICK STACKER documented as of this encounter Plan of Treatment Upcoming Encounters Date Type Department Care Team (Late st Contact Info) Description 02/02/2025 9:20 AM CDT Office Visit [facility] [address] [place] [address] Veronica Cui DO [address] [place] [address] 08/31/2025 10:30 AM BRICK STACKER Office Visit [facility] [address] [address] Aaorn Duggan MD [address] [address] documented as of this encounter Visit Diagnoses Not on filedocumented in this encounter Additional Health Concerns Assessment Noted Time PHQ-9 Depression Total Score: 0 01/11/20 9:16 AM CDT documented as of this encounter Care Teams Inside Horticultural Specialty Grower Relationship Specialty Start Date End Date Stefanie Hardy MD PCP - General FAMILY PRACTICE 08/15/20 12/21/22 Cora [facility] [address] [facility] [place] [address] PCP - General Nurse Practitioner Family 12/22/2201/18 Veronica Cui DO [address] [place] [address] [place] [address] PCP - General FAMILY PRACTICE 01/19/23 Kash Fabian MD [address] [place] [address] [address] [place] [address] Physician INTERVENTIONAL CARDIOLOGY 09/04/20 Adina Quiñones MD [address] [place] [address] OBGYN 01/10/21 Dillan Campoverde MD [address] [place] [address] Surgeon GASTROENTEROLOGY 07/09/22 documented as of this encounter
--- OUTSIDE RECORDS SUMMARY | 2024-09-07 08:45 | XMS_ITS | Clinical Summary ---
Author Organization [facility] Address Formerly [facility] [place] [address] Care Team Providers Care Floor Mechanic Name Role Phone Kash Fabian MD Unavailable [phone] Adina Quiñones MD Unavailable Dillan Campoverde MD Unavailable Unavailable Veronica Cui DO Primary Care Provider [phone] Allergies Active Allergy Reactions Criticality Noted Date Comments Lisinopril Cough 12/04/2022 Medications albuterol sulfate HFA 108 (90 Base) MCG/ACT inhalerIndicati ons:Bronchitis, Chronic cough Inhale 2 puffs into the lungs every 6 (six) hours as needed for Wheezing or Shortness of breath. 6.7 g 11/14/19 23 Active busPIRone (BUSPAR) 5 MG tabletIndicatio ns:Grief,Anxiet y TAKE 1-2 TABLETS (5-10 MG TOTAL) BY MOUTH DAILY NEEDED (ANXIETY). 180 tablet 1 02/08/20 24 Active fluticasone-nusrat meterol (ADVAIR DISKUS) 250-50 MCG/ACT inhalerIndicati ons:NAVARRO (dyspnea on exertion),Ex-sm oker Inhale 1 puff into the lungs 2 (two) times daily. 180 capsule 1 02/09/20 24 Active calcium-magnesi um-zinc 333-133-5 MG TabIndications: Status post foot surgery Take 1 tablet by mouth daily. 90 tablet 02/09/20 24 Active losartan (COZAAR) 50 MG tabletIndicatio ns:Essential hypertension take 1 tablet by mouth every day 90 tablet 02/15/20 24 Active metoprolol tartrate (LOPRESSOR) 25 MG tabletIndicatio ns:Essential hypertension,Dy spnea on exertion TAKE 1/2 TABLET BY MOUTH TWICE A DAY 90 tablet 06/17/20 24 Active atorvastatin (LIPITOR) 80 MG tabletIndicatio ns:Dyslipidemia TAKE 1 TABLET BY MOUTH EVERYDAY AT BEDTIME 90 tablet 06/20/20 24 Active ibuprofen (MOTRIN) 800 MG tabletIndicatio ns:Chronic bilateral low back pain without sciatica Take 1 tablet (800 mg total) by mouth every 8 (eight) hours as needed for Pain. 30 tablet 08/04/19 25 Active D-1000 EXTRA STRENGTH 25 MCG (1000 UT) Tab tabletIndicatio ns:Osteopenia of neck of left femur TAKE 1 TABLET BY MOUTH EVERY DAY 90 tablet 08/10/19 25 Active cetirizine (ZYRTEC) 10 MG tabletIndicatio ns:Seasonal allergies TAKE 1 TABLET BY MOUTH EVERY DAY 90 tablet 08/10/19 25 Active fesoterodine ER (TOVIAZ) 8 MG 24 hr tabletIndicatio ns:Overactive bladder TAKE 1 TABLET BY MOUTH EVERY DAY 90 tablet 08/18/19 25 Active nitroglycerin (NITROSTAT) 0.[address] 1 tablet (0.4 mg total) under the tongue every 5 (five) minutes as needed for Chest Pain. Maximum of 3 doses.Then call 911 25 tablet 1 08/29/19 25 Active aspirin EC 81 MG tablet Take 1 tablet (81 mg total) by mouth daily. 025 Discontinued nitroglycerin (NITROSTAT) 0.[address] 1 tablet (0.4 mg total) under the tongue every 5 (five) minutes as needed for Chest Pain. Maximum of 3 doses.Then call 911 25 tablet 01/09/20 23 025 Discontinued(Re order) cetirizine (ZYRTEC) 10 MG tabletIndicatio ns:Seasonal allergies Take 1 tablet (10 mg total) by mouth daily. 90 tablet 1 02/09/20 24 025 Discontinued vitamin D3 (CHOLECALCIFERO L) 25 mcg tabletIndicatio ns:Osteopenia of neck of left femur Take 1 tablet (1,000 Units total) by mouth daily. 90 tablet 1 02/09/20 24 025 Discontinued fesoterodine ER (TOVIAZ) 8 MG 24 hr tabletIndicatio ns:Overactive bladder take 1 tablet by mouth every day 90 tablet 05/17/20 24 025 Discontinued benzonatate (TESSALON PERLES) 100 MG capsuleIndicati ons:Ex-smoker Take 1 capsule (100 mg total) by mouth 3 (three) times daily as needed for Cough. 20 capsule 2 08/04/19 25 025 Active Problems Problem Noted Date Diagnosed Date Transaminitis 04/21/2023 Ex-smoker 01/19/2023 Post-menopausal 01/19/2023 Abnormal mammogram 01/19/2023 OAB (overactive bladder) 10/02/2022 S/P colonoscopy 05/08/2022 Overview (05/08/2022): Had a colonoscopy with Dr. Campoverde in April 2022. Normal colonoscopy report. Due to family history of colon cancer in mother, patient will repeat her colonoscopy in 5 years (April 2027). Family history of colon cancer 11/21/2021 Status post foot surgery 05/14/2021 Thoracic aortic aneurysm without rupture 021 Nonrheumatic aortic valve insufficiency 11/20/19 21 Essential hypertension 11/19/2020 NAVARRO (dyspnea on exertion) 09/17/2020 Dyslipidemia 08/26/2020 Bilateral sensorineural hearing loss 08/26/2020 Resolved Problems Problem Noted Date Diagnosed Date Resolved Date Stage 2 chronic kidney disease 01/19/2023 04/21/2023 Encounter for screening mamm ogram for malignant neoplasm of breast 01/19/2023 01/26/2023 Elevated blood pressure reading 08/26/2020 01/10/2021 Encounters Date Type Department Care Team Description 08/30/2024 7:35 AM SENIOR NET ENGINEER - 08/30/2024 11:59 PM SENIOR NET ENGINEER Hospital Encounter [address] [place] [address] Elaine Crowe, QUARTER SECTION IRONER Discharge Disposition: Home or Self Care (Routine Discharge) 08/30/2024 7:00 AM SENIOR NET ENGINEER - 08/30/2024 7:34 AM SENIOR NET ENGINEER Hospital Encounter [facility] [address] [place] [address] Veronica Cui, DO Discharge Disposition: Home or Self Care (Routine Discharge) 08/30/2024 Orders Only [facility] [address] [place] [address] Veronica Cui, 08/30/2024 Travel 08/25/2024 10:15 AM SENIOR NET ENGINEER Office Visit [facility] [address] [place] [address] Elaine Crowe NP Follow Up 08/25/2024 Travel 08/23/2024 Scan [facility] Scanned, [facility] 08/12/2024 Orders Only [facility] [address] [facility] [place] [address] Lashonda Obrien LPN 08/10/2024 9:00 AM SENIOR NET ENGINEER - 08/10/2024 11:59 PM SENIOR NET ENGINEER Hospital Encounter [facility] [address] [place] [address] Veronica Cui, Discharge Disposition: Home or Self Care (Routine Discharge) 08/10/2024 Telephone [facility] [address] [facility] [place] [address] Veronica Cui, Results 08/10/2024 Travel 08/04/2024 9:00 AM SENIOR NET ENGINEER Office Visit [facility] [address] [facility] [place] [address] Veronica Cui DO Follow Up (6 month follow up. ) 08/04/2024 Travel 07/19/2024 Scan [facility] Scanned, [facility] 07/05/2024 Scan [facility] Scanned, [facility] 06/30/2024 Telephone [facility] [address] [place] [address] Veronica Cui DO Follow Up Call 06/24/[address] [place], [place] [address] Veronica Cui DO Appointment Request; Imm/Inj from Last 3 Months Immunizations Name Administration Dates Next Due Fluzone High Dose - >Age 65 (Prefilled Syringe) 04/21/2023,04/21/2023,04/23/2021,2020,06/04/2020,06/04/2020 PFIZER COVID-19 (ORIGINAL FORMULATION, PURPLE CAP) mRNA, LNP-S, PF, 30 MCG/0.3 ML DOSE 04/23/2021,09/27/2020,09/06/2020 Pneumococcal (Pneumovax 23) 12/31/2020 Shingrix 12/06/2021,10/03/2021 Tdap (Generic) 10/03/2021 Family History Medical History Relation Comments Diabetes Brother 1 Diabetes Brother 2 Diabetes Brother 3 Arthritis Father Heart Attack Father Heart Disease Father Hypertension Father Cancer Mother Colon Cancer Mother at age 50 Early Mother at 50-years old from colon cancer Heart Attack Sister 1 No Known Problems Sister 2 No Known Problems Son 1 No Known Problems Son 2 Breast Cancer Neg Hx Relation Status Comments Brother 1 Alive Brother 2 Alive Brother 3 Alive Brother 4 Alive Father mi 1998 Mother colon cancer Sister 1 Alive Sister 2 Alive Son 1 Alive Son 2 Alive Social History Tobacco Use Types Packs/Day Years Used Date Smoking Tobacco: Former Cigarettes 1 10 0 07/20/2005 - 07/20/2015 Passive Smoke Exposure: Past Smokeless Tobacco: Never Tobacco Cessation:Counseling Given: No Comments:Quit-quit about 45 y old. 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 Not on file Not on file Not on file Last Filed Vital Signs Vital Sign Reading Time Taken Comments Blood Pressure 122/72 08/25/2024 10:20 AM SENIOR NET ENGINEER Pulse 76 08/25/2024 10:15 AM SENIOR NET ENGINEER Temperature 36.4 C (97.5 F) 08/04/2024 9:06 AM SENIOR NET ENGINEER Respiratory Rate 16 08/25/2024 10:15 AM SENIOR NET ENGINEER Oxygen Saturation 97% 08/25/2024 10:15 AM SENIOR NET ENGINEER Inhaled Oxygen Concentration - - Weight 64.7 kg (142 lb 9.6 oz) 08/25/2024 10:15 AM SENIOR NET ENGINEER Height 153.7 cm (5' 0.5 ) 08/25/2024 10:15 AM CS T Body Mass Index 27.39 08/25/2024 10:15 AM SENIOR NET ENGINEER Plan of Treatment Upcoming Encounters Date Type Department Care Team (Late st Contact Info) Description 02/02/2025 9:20 AM CDT Office Visit [facility] [address] [place] [address] Veronica Cui DO [address] [place] [address] 08/31/2025 10:30 AM SENIOR NET ENGINEER [facility] [address] [facility] [place] [id number] Aaron Duggan MD [address] [address] Health Maintenance Due Date Last Done Comments RSV Immunization or 60+ Years (1 - Risk 60-74 years 1-dose series) 2013 Pneumococcal Vaccine: 65+ Years (2 of 2 - PCV) 12/31/2021 12/31/2020 Annual Medicare Wellness Visit 07/10/2023 07/09/2022 COVID-19 Vaccine ( season) 2024 04/23/2021, 09/27/2020, 09/06/2020 Influenza Adult (#1) 2024 04/21/2023, 04/21/2023, 04/23/2021, Additional history exists PHQ-2 (Physician [place]) 07/20/2024 02/02/2024 Mammogram Screening 08/10/2026 08/10/2024, 04/20/2023, 02/27/2021, Additional history exists DTaP, Tdap and Td Vaccines (2 - Td or Tdap) 10/04/2031 10/03/2021 Colorectal Cancer Screening Colonoscopy (10 Years) 04/21/2032 04/21/2022, 07/28/2016 Zoster Vaccines Completed 12/06/2021, 10/03/2021 Hepatitis C Completed 04/16/2023 Dexa Scan (General) Completed 04/20/2023, 04/12/2021, 12/11/2017, Additional history exists Meningococcal B Vaccine Aged Out No l onger eligible based on patient's age to complete this topic Meningococcal Vaccine Aged Out No ed david eligible based on patient's age to complete this topic RSV Immunizations Under 20 Months Aged Out No longer eligible based on patient's age to complete this topic Medical Devices Implanted Type Area Apron Cleaner Device Identifier Shelf Expiration Date Model / Serial / Lot Screw Synthes 4.0 Dary Short Thread 40mm - [id number] Implanted:Qty: 1 on 01/24/2021 by Shin Mcmullen MD at [facility] Screw Left: Ankle SYNTHES 207.640 / / Explanted Type Area Apron Cleaner Device Identifier Shelf Expiration Date Model / Serial / Lot Plate Synthes 5 Hole Left Distal Fibula - [id number] Implanted:Qty: 1 on 01/24/2021 by Shin Mcmullen MD at [facility] Explanted:Qty: 1 on 05/14/2021 at [facility] Plate Left: Ankle SYNTHES [id number] / / Screw Synthes 3.5 Cortex S/Tap 14mm - [id number] Explanted:Qty: 1 on 01/24/2021 at [facility] Screw Left: Ankle SYNTHES 204.814 / / Screw Synthes 2.7 Va Locking S/Tap T8 14mm - [id number] Explanted:Qty: 1 on 01/24/2021 at [facility] Screw Left: Ankle SYNTHES 02.211.014 / / Screw Synthes 4.0 Dary Short Thread 30mm - [id number] Explanted:Qty: 2 on 01/24/2021 at [facility] Screw Left: Ankle SYNTHES 207.630 / / Screw Synthes 2.7 Va Locking S/Tap T8 10mm - [id number] Implanted:Qty: 2 on 01/24/2021 by Shin Mcmullen MD at [facility] Explanted:Qty: 2 on 05/14/2021 at [facility] Screw Left: Ankle SYNTHES 02.211.010 / / Screw Synthes 2.7 Va Locking S/Tap T8 12mm - [id number] Implanted:Qty: 2 on 01/24/2021 by Shin Mcmullen MD at [facility] Explanted:Qty: 2 on 05/14/2021 at [facility] Screw Left: Ankle SYNTHES 02.211.012 / / Screw Synthes 2.7 Cortical Self Tapping 14 - [id number] Implanted:Qty: 1 on 01/24/2021 by Shin Mcmullen MD at [facility] Explanted:Qty: 1 on 05/14/2021 at [facility] Screw Left: Ankle SYNTHES 202.814 / / Screw Synthes 2.7 Cortical Self Tapping 16 - [id number] Implanted:Qty: 2 on 01/24/2021 by Shin Mcmullen MD at [facility] Explanted:Qty: 2 on 05/14/2021 at [facility] Screw Left: Ankle SYNTHES 202.816 / / Procedures Procedure Name Priority Date/Time Associated Diagnosis Comments CTA CHEST Routine 08/30/2024 8:26 AM SENIOR NET ENGINEER Aneurysm of ascending aorta without rupture (CMS/HCC) GGT, GAMMA GLUTAMYLTRANSFERASE Routine 08/30/2024 7:38 AM SENIOR NET ENGINEER Transaminitis COMPREHENSIVE METABOLIC PANEL STAT 08/30/2024 7:38 AM SENIOR NET ENGINEER Transaminitis US BREAST LT BIRAD LTD Routine 10:54 AM SENIOR NET ENGINEER Abnormal mammogram MG DIAG W TREV BILAT DIGI Routine 2024 10:02 AM SENIOR NET ENGINEER Abnormal mammogram BONE DENSITY/DEXA Routine 04/20/2023 12: 22 PM CDT Encounter to establish care Stage 2 chronic kidney disease Post-menopausal Ex-smoker HC HEP CORE AB Routine 04/16/2023 7:34 AM CDT Abnormal liver function test COLONOSCOPY GENERIC (SCAN ORDER) 07/28/2016 from Last 3 Months or Most Recently Relevant to Health Maintenance Results * CTA CHEST (08/30/2024 8:26 AM SENIOR NET ENGINEER) Anatomical Region Laterality Modality Chest Computed Tomogra phy 08/30/2024 8:33 AM SENIOR NET ENGINEER Impressions 08/30/2024 8:36 AM SENIOR NET ENGINEER IMPRESSION: Stable mild fusiform aneurysm of the ascending aorta Ordered By: ELAINE CROWE Interpreted By: Jamie Perkins MD, 08/30/2024 8:33 AM Narrative 08/30/2024 8:36 AM SENIOR NET ENGINEER [address] [place] [address] CT CHEST WITH CONTRAST CT ANGIOGRAM OF THE CHEST Clinical history: Ascending aortic aneurysm Technique: Dynamic helical images of the chest were obtained in early arterial phase after the patient received 100 mL of Isovue-370 nonionic intravenous contrast through an IV in the right antecubital fossa. A dose lowering technique was used for this procedure, which may include, but is not limited to, dose reduction technique, automated exposure control, the use of iterative reconstruction, and ALARA (As Low As Reasonably Achievable) / Image Gently techniques. 3-dimensional vessel subtraction, investigation, and analysis was performed on a separate workstation. Selected images are made available for review. Comparison: January 26, 2023 VASCULAR FINDINGS: The gated left ventricular outflow is normal in appearance and appears stable. The aortic valve is tricuspid. There is normal opacification of the proximal coronary arteries. There is mild fusiform aneurysmal dilation of the ascending portion of the aorta. The maximum diameter on today's exam measures 4.3 cm. The intima is smooth with no significant atheromatous changes. The brachiocephalic, left common carotid, and left subclavian arteries appear normal. The aorta transitions to normal diameter throughout the arch and descending thoracic aorta is normal in course and caliber throughout. The caliber is normal at the diaphragmatic hiatus NONVASCULAR FINDINGS: The heart is normal in size and appearance. No pericardial effusion is seen. No adenopathy is noted within the mediastinum or deepika. Grossly, the trachea and esophagus appear normal. The lungs are clear. No significant pulmonary nodules, areas of consolidation, or pleural fluid are present. Images of the upper abdomen reveal a stable normal appearance Procedure Note Jamie Perkins MD - 08/30/[address] [place] [address] CT CHEST WITH CONTRAST CT ANGIOGRAM OF THE CHEST Clinical history: Ascending aortic aneurysm Technique: Dynamic helical images of the chest were obtained in earlyarterial phase after the patient received 100 mL of Isovue-370 nonionicintravenous contrast through an IV in the right antecubital fossa. A doselowering technique was used for this procedure, which may include, but isnot limited to, dose reduction technique, automated exposure control, theuse of iterative reconstruction, and ALARA (As Low As ReasonablyAchievable) / Image Gently techniques. 3-dimensional vessel subtraction, investigation, and analysis wasperformed on a separate workstation. Selected images are made availablefor review. Comparison: January 26, 2023 VASCULAR FINDINGS: The gated left ventricular outflow is normal in appearance and appearsstable. The aortic valve is tricuspid. There is normal opacification ofthe proximal coronary arteries. There is mild fusiform aneurysmal dilationof the ascending portion of the aorta. The maximum diameter on today'sexam measures 4.3 cm. The intima is smooth with no significantatheromatous changes. The brachiocephalic, left common carotid, and left subclavian arteriesappear normal. The aorta transitions to normal diameter throughout thearch and descending thoracic aorta is normal in course and caliberthroughout. The caliber is normal at the diaphragmatic hiatus NONVASCULAR FINDINGS: The heart is normal in size and appearance. No pericardial effusion isseen. No adenopathy is noted within the mediastinum or deepika. Grossly, thetrachea and esophagus appear normal. The lungs are clear. No significant pulmonary nodules, areas ofconsolidation, or pleural fluid are present. Images of the upper abdomen reveal a stable normal appearance IMPRESSION: Stable mild fusiform aneurysm of the ascending aorta Ordered By: ELAINE CROWE Interpreted By: Jamie Perkins MD, 08/30/2024 8:[address] Final Result * (ABNORMAL) COMPREHENSIVE METABOLIC PANEL (08/30/2024 7:38 AM SENIOR NET ENGINEER) GLUCOSE 95 70 - 99 MG/DL 08/30/2024 8:02 AM [facility] BUN 8 7 - 18 MG/DL 08/30/2024 8:02 AM [facility] CREATININE S/P/B 0.82 0.50 - 1.20 MG/DL 08/30/2024 8:02 AM [facility] SODIUM S/P/B 142 136 - 145 MMOL/L 08/30/2024 8:02 AM [facility] POTASSIUM S/P/B 4.0 3.5 - 5.1 MMOL/L 08/30/2024 8:02 AM [facility] CHLORIDE S/P/B 104 100 - 108 MMOL/L 08/30/2024 8:02 AM [facility] CO2 33.9(H) 21.0 - 32.0 MMOL/L 08/30/2024 8:02 AM [facility] CALCIUM S/P/B 9.5 8.5 - 10.1 MG/DL 08/30/2024 8:02 AM [facility] BILIRUBIN TOTAL S/P/B 1.0 0.2 - 1.2 MG/DL 08/30/2024 8:02 AM [facility] Comment: THIS ASSAY IS NOT RECOMMENDED FOR PATIENTS UNDERGOING TREATMENT WITH ELTROMBOPAG DUE TO THE POTENTIAL FOR FALSELY ELEVATED RESULTS. TOTAL PROTEIN S/P/B 6.9 6.4 - 8.2 G/DL 08/30/2024 8:02 AM [facility] ALBUMIN S/P/B 3.7 3.4 - 5.0 G/DL 08/30/2024 8:02 AM [facility] AST 50(H) 15 - 37 U/L 08/30/2024 8:02 AM [facility] ALT 57(H) 14 - 55 U/L 08/30/2024 8:02 AM [facility] ALKALINE PHOSPHATASE S/P/B 116 50 - 136 U/L 08/30/2024 8:02 AM [facility] ANION GAP 4.1(L) 5.0 - 15.0 MMOL/L 08/30/2024 8:02 AM [facility] BUN CREATININE RATIO 9.8 6 - 26 08/30/2024 8:02 AM [facility] A/G RATIO 1.2 1.0 - 2.5 RATIO 08/30/2024 8:02 AM [facility] GFR ESTIMATE 76(L) >90 ML/MIN/1.7 3 M2 08/30/2024 8:02 AM [facility] Comment: NOTE: eGFR is not calculated for patients <18 years of age. This is an estimated GFR calculation using the new CKD EPI creatinine equation without race and so does not require a correction factor for race. This estimated GFR should not be used for calculating drug doses. 08/30/2024 7:38 AM SENIOR NET ENGINEER us Veronica Cui DO LABORATORY Final Result [facility] [address] [place] [address], [place] * GGT, GAMMA GLUTAMYLTRANSFERASE (08/30/2024 7:38 AM SENIOR NET ENGINEER) GGT 46 5.0 - 55.0 U/L 08/30/2024 12:36 PM SENIOR NET ENGINEER [facility] 08/30/2024 7:38 AM SENIOR NET ENGINEER Veronica Cui DO LABORATORY Final Result Performing Organization Address City/[facility]/ZIP Co de Phone Number [facility] [address] [place] [address], [place] [phone] * BREAST LT BIRAD LTD (08/10/2024 10:54 AM SENIOR NET ENGINEER) Anatomical Region Laterality Modality Breast Left Ultrasound 08/10/2024 11:0 2 AM SENIOR NET ENGINEER Addenda Addendum by Chilo Pineda MD on 08/10/2024 11:18 AM SENIOR NET ENGINEER [facility] [id number] [place] [id number] Addendum: Recommendation of biopsy was discussed with Mary in Dr. Cui's office at 11:[address] Cui was off today. Ordered By: VERONICA CUI Interpreted By: Chilo Pineda MD, 08/10/2024 11:15 AM Impressions 08/10/2024 11:07 AM SENIOR NET ENGINEER ===== IMPRESSION: ===== 1. Six-month follow-up of the suspected minimally complex left breast cyst is recommended. 2. Tissue sampling of the calcifications in the lateral superior right breast is recommended. Findings reviewed and discussed with the patient in the presence of the research methodologist, KATHERINE. Assessment: ACR BI-RADS 4 - SUSPICIOUS FINDING(S) - BIOPSY SHOULD BE CONSIDERED Recommendation: 1:Biopsy should be consideredRight Comments: Ordered By: VERONICA CUI Interpreted By: Chilo Pineda MD, 08/10/2024 11:02 AM Narrative 08/10/2024 11:07 AM SENIOR NET ENGINEER [facility] [address] [place] [address] Examination: Digital bilateral diagnostic mammogram with 3-D tomography and left breast ultrasound. [id number] Exam Date/Time: 08/10/2024 9:07 AM Reason For Exam: abnormal mammogram Comparison: Priors including April 2023, February 2021. Technique: Digital diagnostic mammography of both breasts was performed in addition to 3-D Tomosynthesis technique. This study was read with the assistance of a computer-aided detection system. Grayscale and color Doppler images left breast. Tissue density: There are scattered areas of fibroglandular density. Findings: There group calcifications that are present in the lateral superior right breast. These appear to be grouped. These are pleomorphic. Further evaluation with tissue sampling is recommended. There is a small mass in the slightly lateral mid left breast. This does persist on compression view. Subsequent targeted ultrasound is performed. At the 4:00 position 3 cm from the nipple there is an oval hypoechoic mass that is present. This measures 0.6 x 0.3 x 0.5 cm. This is relatively anechoic there is posterior acoustic enhancement and no internal color flow. This suggestive of a cyst. The cavazos are slightly irregular. This may relate to size. Six-month follow-up recommended. The findings were reviewed and discussed with the patient. The need for tissue sampling and biopsy of the calcifications of the right breast were discussed with the patient, in the presence of the research methodologist, KATHERINE. There is mutual agreement. Patient desires to go to [facility] for stereotactic biopsy. us Veronica Cui DO ULTRASOUND Edited Result - Final * MG DIAG W TREV BILAT DIGI (08/10/2024 10:02 AM SENIOR NET ENGINEER) Anatomical Region Laterality Modality Breast Bilateral Mammography, Rad iographic Imaging 08/10/2024 11:0 2 AM SENIOR NET ENGINEER Addenda Addendum by Chilo Pineda MD on 08/10/2024 11:18 AM SENIOR NET ENGINEER [facility] [address] [place] [address] Addendum: Recommendation of biopsy was discussed with Mary in Dr. Cui's office at 11:[address] Cui was off today. Ordered By: VERONICA CUI Interpreted By: Chilo Pineda MD, 08/10/2024 11:15 AM Impressions 08/10/2024 11:07 AM SENIOR NET ENGINEER ===== IMPRESSION: ===== 1. Six-month follow-up of the suspected minimally complex left breast cyst is recommended. 2. Tissue sampling of the calcifications in the lateral superior right breast is recommended. Findings reviewed and discussed with the patient in the presence of the research methodologist, KATHERINE. Assessment: ACR BI-RADS 4 - SUSPICIOUS FINDING(S) - BIOPSY SHOULD BE CONSIDERED Recommendation: 1:Biopsy should be consideredRight Comments: Ordered By: VERONICA CUI Interpreted By: Chilo Pineda MD, 08/10/2024 11:02 AM Narrative 08/10/2024 11:07 AM SENIOR NET ENGINEER [facility] [address] [place] [address] Examination: Digital bilateral diagnostic mammogram with 3-D tomography and left breast ultrasound. [id number] Exam Date/Time: 08/10/2024 9:07 AM Reason For Exam: abnormal mammogram Comparison: Priors including April 2023, February 2021. Technique: Digital diagnostic mammography of both breasts was performed in addition to 3-D Tomosynthesis technique. This study was read with the assistance of a computer-aided detection system. Grayscale and color Doppler images left breast. Tissue density: There are scattered areas of fibroglandular density. Findings: There group calcifications that are present in the lateral superior right breast. These appear to be grouped. These are pleomorphic. Further evaluation with tissue sampling is recommended. There is a small mass in the slightly lateral mid left breast. This does persist on compression view. Subsequent targeted ultrasound is performed. At the 4:00 position 3 cm from the nipple there is an oval hypoechoic mass that is present. This measures 0.6 x 0.3 x 0.5 cm. This is relatively anechoic there is posterior acoustic enhancement and no internal color flow. This suggestive of a cyst. The cavazos are slightly irregular. This may relate to size. Six-month follow-up recommended. The findings were reviewed and discussed with the patient. The need for tissue sampling and biopsy of the calcifications of the right breast were discussed with the patient, in the presence of the research methodologist, KATHERINE. There is mutual agreement. Patient desires to go to [facility] for stereotactic biopsy. us Veronica Cui DO MAMMO Edited Result - Final * BONE DENSITY/DEXA (04/20/2023 12:22 PM CDT) Anatomical Region Laterality Modality Bone Bone Density 04/21/2023 9:58 AM CDT Impressions 04/21/2023 1:01 PM CDT =====IMPRESSION:===== The patient bone density osteopenic according to the World Health Organization (WHO) criteria 10 year fracture risk: Major osteoporotic fracture: 12 % Hip fracture: 2.6 % Ordered By: VERONICA CUI Interpreted By: Mono Jaramillo MD, 04/21/2023 9:58 AM Narrative 04/21/2023 1:01 PM CDT EXAMINATION: Bone Density Axial EXAM DATE/TIME: 04/20/2023 10:30 AM REASON FOR EXAM: post menopausal status COMPARISON: 12/11/2017 FINDINGS: DEXA bone densitometry The bone mineral density (BMD) was determined by dual-energy x-ray absorptiometry, the results are as follows: AP Lumbar Spine L1 through L3 BMD Patient (GM/SQCM): 0.760 T-Score (Standard deviations from young adult peak bone density): -2.3 and a Z- Score of -0.3. . It should be noted that osteoarthritis may falsely increase bone mineral density measured in the lumbar spine. . It should be noted that there has been decrease in bone mineral density from prior exam. Left mean femoral neck: BMD Patient (GM/SQCM): 0.602 T-Score (Standard deviations from young adult peak bone density): -2.2 and a Z- Score of -0.4. . It should be noted that there has been interval decrease from prior exam. Left Total femur: BMD Patient (GM/SQCM): 0.809 T-Score (Standard deviations from young adult peak bone density): -1.1 and a Z- Score of 0.4. It should be noted that there has been interval increase from prior exam. Procedure Note Mono Jaramillo MD - 04/21/2023 EXAMINATION: Bone Density Axial EXAM DATE/TIME: 04/20/2023 10:30 AM REASON FOR EXAM: post menopausal status COMPARISON: 12/11/2017 FINDINGS: DEXA bone densitometry The bone mineral density (BMD) was determined bydual-energy x-ray absorptiometry, the results are as follows: AP Lumbar Spine L1 through L3 BMD Patient (GM/SQCM): 0.760 T-Score (Standard deviations from young adult peak bonedensity): -2.3 and a Z- Score of -0.3. . It should be noted thatosteoarthritis may falsely increase bone mineral density measured in thelumbar spine. . It should be noted that there has been decrease in bonemineral density from prior exam. Left mean femoral neck: BMD Patient (GM/SQCM): 0.602 T-Score (Standard deviations from young adult peak bonedensity): -2.2 and a Z- Score of -0.4. . It should be noted that therehas been interval decrease from prior exam. Left Total femur: BMD Patient (GM/SQCM): 0.809 T-Score (Standard deviations from young adult peak bonedensity): -1.1 and a Z- Score of 0.4. It should be noted that there hasbeen interval increase from prior exam. =====IMPRESSION:===== The patient bone density osteopenic according to the World Health Organization (WHO) criteria 10 year fracture risk: Major osteoporotic fracture: 12 % Hip fracture: 2.6 % Ordered By: VERONICA CUI Interpreted By: Mono Jaramillo MD, 04/21/2023 9:58 AM Veronica Cui DO DEXA Final Result * HEPATITIS A,B,& C (04/16/2023 7:34 AM CDT) HEPATITIS B SURFACE AG NON-REACTI VE NON-REACTI VE 04/16/2023 11:46 AM CDT [facility] HEP B CORE TOTAL AB NON-REACTI VE NON-REACTI VE 04/16/2023 12:16 PM CDT [facility] HEP B SURFACE AB NON-REACTI VE 04/16/2023 11:46 AM CDT [facility] HAV IGM NON-REACTI VE NON-REACTI VE 04/16/2023 12:16 PM CDT [facility] HEPATITIS C AB NON-REACTI VE NON-REACTI VE 04/16/2023 12:14 PM CDT [facility] 04/16/2023 7:34 AM CDT Veronica Cui DO LABORATORY Final Result [facility] [address] [place] [address], [place] [phone] * COLONOSCOPY GENERIC (07/28/2016) 07/28/2016 Narrative 07/28/2016 Ordered by an unspecified provider. us Documents Scanned SCANNING Final Result from Last 3 Months or Most Recently Relevant to Health Maintenance Insurance HUMANA HUMANA Care Teams Floor Mechanic Relationship Specialty Start Date End Date Veronica Cui DO [address] [place] [address] [place] [address] PCP - General FAMILY PRACTICE 01/19/23 Kash Fabian MD [address] [facility] [address] [place] [address] Physician INTERVENTIONAL CARDIOLOGY 09/04/20 Adina Quiñones MD [address] [place] [address] [address] [place] [address] OBGYN 01/10/21 Dillan Campoverde MD [address] [place] [address] Surgeon GASTROENTEROLOGY 07/09/22
--- OUTSIDE RECORDS SUMMARY | 2024-09-07 08:45 | XMS_ITS | Encounter Summary ---
Author Organization [facility] Address [facility] [place] [address] Care Team Providers Care Steel Handler Name Role Phone Stefanie Hardy MD Primary Care Pr ovider Unavailable Kash Fabian MD Unavailable [phone] Adina Quiñones MD Unavailable Dillan Campoverde MD Unavailable Unavailable Sunny Martinez, ABRASIVE MIXER-BC, Cora Primary Care Provider Veronica Cui DO Primary Care Provider [phone] Encounter Details Date Type Department Care Team (Late st Contact Info) Description 02/04/2021 MyChart Message Enc [facility] Multispecialty Care - [facility] [address] [facility] [place] [address] Tommy Wang PA [address] [facility] [place], [place] [id number] Pain Medicine Social History Tobacco Use Types Packs/Day Years [...] CDT Gender Identity Female 06/30/2021 1:08 PM GLASS INSPECTOR Sexual Orientation Straight 06/30/2021 1: 08 PM GLASS INSPECTOR COVID-19 Exposure Response Date Recorded In the last month, have you been in contact with someone who was confirmed or suspected to have Coronavirus / COVID-19? No / Unsure 02/06/2021 10:14 AM CDT documented as of this encounter Plan of Treatment Upcoming Encounters Date Type Department Care Team (Late st Contact Info) Description 02/02/2025 9:20 AM CDT Office Visit [facility] [address] [place] [address] Veronica Cui DO [address] [place] [address] 08/31/2025 10:30 AM GLASS INSPECTOR Office Visit [facility] [address] [place] [id number] Aaron Duggan MD [address] [address] documented as of this encounter Visit Diagnoses Not on filedocumented in this encounter Additional Health Concerns Assessment Noted Time PHQ-9 Depression Total Score: 0 01/11/20 9:16 AM CDT documented as of this encounter Care Teams Steel Handler Relationship Specialty Start Date End Date Stefanie Hardy MD PCP - General FAMILY PRACTICE 08/15/20 12/21/22 Cora Correa V, [facility] [address] [place] [address] PCP - General Nurse Practitioner Family 12/22/2201/18 Veronica Cui DO [address] [place] [address] [place] [address] PCP - General FAMILY PRACTICE 01/19/23 Kash Fabian MD [facility] E [facility] [address] [place] [address] Physician INTERVENTIONAL CARDIOLOGY 09/04/20 Adina Quiñones MD [facility] [address] OBGYN 01/10/21 Dillan Campoverde MD [address] [place] [address] Surgeon GASTROENTEROLOGY 07/09/22 documented as of this encounter
== END 2024-09-07 08:41 | disposition home or self-care (01) ==
PROVIDERS: Visit Provider Surgery
DX: R92.1 Mammographic calcification found on diagnostic imaging of breast (principal)
CPT/HCPCS: 19081; 88305; 88342

== ENCOUNTER 2024-10-05 10:52 | Outpatient (CLI) | payer MEDICARE, OTHER, SELFPAY ==
--- NOTE | 2024-10-05 11:02 | ECG_ITS ---
Test Date: 2024-10-05 11:26:08 Measurements Intervals [place] Rate: 84 P: 36 ND: 129 QRS: -6 QRSD: 80 T: 56 QT: 369 QTc: 437 Interpretive Statements SINUS RHYTHM NORMAL ECG Electronically Signed On 10-05-2024 12:55:19 CDT by Warren Ballard M.D.
[2024-10-05 11:46] LABS: Prothrombin Time 13.6 Seconds (11.1-14.7)
[2024-10-05 11:48] LABS: Partial Thromboplastin Time 27.2 Seconds (22.3-36.8)
[2024-10-05 12:17] LABS: Anion Gap 10 mmol/L (4-12); Blood Urea Nitrogen 6 mg/dL (7-17); Calcium 9.2 mg/dL (8.4-10.2); Carbon Dioxide 26 mmol/L (22-30); Chloride 103 mmol/L (98-107); Estimated Glomerular Filt Rate > 60; Glucose 93 mg/dL (65-110); Potassium 4.3 mmol/L (3.4-5.0); Sodium 139 mmol/L (137-145)
== END 2024-10-05 10:53 | disposition home or self-care (01) ==
LOC: ANHSURGERY 11:00
PROVIDERS: Anesthesiology; PCP Family Medicine Sports Medicine; Visit Provider Surgery
DX: I12.9 Hypertensive chronic kidney disease with stage 1 through stage 4 chronic kidney disease, or unspecified chronic kidney disease (principal); N18.2 Chronic kidney disease, stage 2 (mild); I25.10 Atherosclerotic heart disease of native coronary artery without angina pectoris; Z01.818 Encounter for other preprocedural examination; E78.5 Hyperlipidemia, unspecified
CPT/HCPCS: 36415; 80048; 85610; 85730; 93005

== ENCOUNTER 2024-10-10 00:35 | Day surgery (SDC) | payer MEDICARE, OTHER, SELFPAY ==
[2024-09-27 13:34] VITALS: BMI 25.8
--- NOTE | 2024-09-27 13:50 | PC.NURSE ---
Report to the Outpatient Waiting Room, entrance under the green pavilion located off [facility], at time __0900am on date 10/10/24 . Planned Procedure Time: _1200pm .? Time changes happen often and if your time is changed the preop area will call you the afternoon before. - You and your visitor will be asked to self-screen and do not enter if you have any COVID symptoms. Please call surgeon if you need to reschedule. - A mask is optional within the hospital at this time. Patients may have clear liquids (water, carbonated beverages, clear teas, apple juice) until 3 hours prior to surgery with a maximum of 20 ounces. - No food from midnight until time of surgery and no smoking, or chewing tobacco (or any form of nicotine). No chewing gum, candy or mints. (0800am) Take only the following medications with a SIP of water on the morning of surgery: Busprione, Metoprolol,& Inhaler - Tylenol if needed DO NOT STOP ANY OF YOUR OTHER PRESCRIPTION MEDICATIONS PRIOR TO SURGERY EXCEPT THE FOLLOWING Hold all vitamins and supplements for 3 days per anesthesiologist.Date to take last dose__ 10/06/24 Medications to discontinue per physician None Date to take last dose None Please no make-up, nail yakut, hairspray, perfume, deodorant, or body powder the day of surgery.? No jewelry (including any body piercings) or valuables the day of surgery, leave them at home.? Please take a shower or bath the night before, or the morning of, surgery with an antibacterial soap.? Wear comfortable, loose fitting clothing.? - Jewelry must be removed prior to entering the operating room.? Rings and piercings that are not removed may be cut off. - The hospital will not accept responsibility for valuables.? - Please leave all valuables, including medications, at home the day of surgery. If you are going home after surgery, a licensed tractor driver must drive you home.? - NO public transportation without another adult if you receive anesthesia. - We recommend that an adult stay with you for 24 hours following discharge. - We also recommend that you do not drive, make important decision, drink alcoholic beverages, or take any drugs that were not prescribed by your health care provider for at least 24 hours after your discharge time. Follow any additional instructions given to you from your surgeon. Telephone instructions given to ___Patient and asked if any additional questions and then verbalized understanding. Patient advised to call surgeon office or pre surgery nurse liaison [phone] if any additional questions.
--- NOTE | ~2024-10-10 | MM_ITS ---
EXAMINATION: MM needle loc RT DATE: 10/10/2024 10:59 INDICATION: Right breast ductal carcinoma in situ. TECHNIQUE: The procedure for a mammography-guided needle localization was discussed with the patient. Risks and benefits were detailed including risks of bleeding and infection. The patient verbalized u nderstanding and agreed to proceed. The patient was placed in compression, and the skin overlying the outer right breast was prepared in usual fashion. The skin and subcutaneous soft tissues were infiltrated with 1% lidocaine for local anesthesia. Utilizing mammography guidance, a needle was advanced into the upper outer righ t breast. Two confirmatory films were obtained. The patient tolerated procedure without immediate com plication. A specimen radiograph was performed. FINDINGS: Two view confirmatory films of the right breast demonstrate a needle with tip adjacent to t he biopsy marker. Calcifications and the surgical marker are contained within the surgical specimen. IMPRESSION: 1. Successful mammography-guided right breast needle localization. Reviewed, dictated and finalized at location A.
--- NOTE | ~2024-10-10 | MM_ITS ---
EXAMINATION: MM surgical specimen RT HISTORY: DCIS with comedonecrosis on stereotactic biopsy TECHNIQUE: 2D views of the excised specimen were obtained. COMPARISON: Examination was compared with needle localization procedure performed earlier on the same day and dating back to 08/10/2024 FINDINGS: Submitted specimen demonstrates the suspicious microcalcifications spanning approximately 1 1.5 mm, adjacent to the localization wire. Vascular calcifications are also noted. The microclip is not visualized within the current specimen. The long lateral suture is closest to the clustered microcalcifications, with the short superior suture is closest to the localization wire. Deep to the long lateral suture is an 11 x 8 mm area of increased density, likely representing hem atoma from stereotactic biopsy. IMPRESSION: Technically successful excisional biopsy, with the clustered microcalcifications well within the spec imen. Reviewed, dictated and finalized at location A. IMPRESSION: Technically successful excisional biopsy, with the clustered microcalcification s well within the specimen.
--- NOTE | ~2024-10-10 | NM_ITS ---
EXAMINATION: NM sentinel node inject only DATE: 10/10/2024 13:24 INDICATION: Right breast cancer TECHNIQUE: 1.012 mCi Tc-99m filtered sulfur colloid was injected in four aliquots in the anterior frank ast near the areola. No images were obtained. IMPRESSION: 1. Right breast sentinel lymph node radiopharmaceutical injection. Reviewed, dictated and finalized at location A.
--- OUTSIDE RECORDS SUMMARY | 2024-10-10 00:40 | XMS_ITS | Encounter Summary ---
Author Organization [facility] Address Pending [facility] to [facility] [place] [address] Care Team Providers Care Aviation Technical Systems Specialist Name Role Phone Stefanie Hardy MD Primary Care Pr ovider Unavailable Kash Fabian MD Unavailable [phone] Adina Quiñones MD Unavailable Dillan Campoverde MD Unavailable Unavailable Sunny Martinez, LINK TRAINER OPERATOR-BC, Cora Primary Care Provider Veronica Cui DO Primary Care Provider [phone] Encounter Details Date Type Department Care Team (Latest Contact Info) Description 07/16/2021 MyChart Message Enc [facility] Multispecialty Care - [facility] [address] [facility], [address] [place] [address] Shin Mcmullen MD [address] [place], [place] [id number] Physical Therapy Social History Tobacco Use Types [...] CDT Gender Identity Female 06/30/2021 1:08 PM TIER AND DETONATOR Sexual Orientation Straight 06/30/2021 1: 08 PM TIER AND DETONATOR COVID-19 Exposure Response Date Recorded In the last month, have you been in contact with someone who was confirmed or suspected to have Coronavirus / COVID-19? No / Unsure 07/02/2021 9:22 AM TIER AND DETONATOR documented as of this encounter Plan of Treatment Upcoming Encounters Date Type Department Care Team (Late st Contact Info) Description 02/02/2025 9:20 AM CDT Office Visit [facility] [address] [place] [address] Veronica Cui DO [address] [place] [address] 08/31/2025 10:30 AM TIER AND DETONATOR [facility] [address] [place] [phone] Aaron Duggan MD [address] [address] documented as of this encounter Visit Diagnoses Not on filedocumented in this encounter Additional Health Concerns Assessment Noted Time PHQ-9 Depression Total Score: 0 01/11/20 9:16 AM CDT documented as of this encounter Care Teams Aviation Technical Systems Specialist Relationship Specialty Start Date End Date Stefanie Hardy MD PCP - General FAMILY PRACTICE 08/15/20 12/21/22 Cora Correa V, [facility] [address] [place] [address] PCP - General Nurse Practitioner Family 12/22/2201/18 Veronica Cui DO [address] [place] [address] [place] [address] PCP - General FAMILY PRACTICE 01/19/23 Kash Fabian MD [facility] [address] [facility] [address] [place] [address] Physician INTERVENTIONAL CARDIOLOGY 09/04/20 Adina Quiñones MD [facility] [address] OBGYN 01/10/21 Dillan Campoverde MD [address] [place] [address] Surgeon GASTROENTEROLOGY 07/09/22 documented as of this encounter
--- OUTSIDE RECORDS SUMMARY | 2024-10-10 00:40 | XMS_ITS | Clinical Summary ---
Author Organization [facility] Address [address] [place] [address] Care Team Providers Care Manager In Training Name Role Phone Veronica Cui DO Primary Care Provider [phone] Allergies Active Allergy Reactions Criticality Noted Date Comments Lisinopril Cough Low 12/04/2022 Tomato Hives Medium 11/02/2018 Medications ibuprofen (ADVIL,MOTRIN) suspension 100 mg/5 mL 800 mg 3 (three) times a day Active vitamin A95-undla acid 0.5-1 mg tablet daily Acti ve [...] Department Care Team Description 07/19/2024 2:45 PM PLANER OPERATOR / GRADER Office Visit [facility] Orthopedics and Sports Medicine [address] [facility] [address] [place] [address] Dimitri Jewell PA Pain in both knees, unspecified chronicity (Primary Dx); Primary osteoarthritis of both knees 07/19/2024 2:10 PM PLANER OPERATOR / GRADER - 07/19/2024 11:59 PM PLANER OPERATOR / GRADER Hospital Encounter [facility] 1 DIAG IMG [address] [place] [address] Chronic pain of right knee; Chronic pain [...] on file Legal Sex Female 5:57 PM PLANER OPERATOR / GRADER Gender Identity Not on file Sexual Orientation Not on file 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 Not on file Not on file Not on file Obstetrics History Para Term AB IAB SAB Ectopic Multiple Livin g Live Births 2 2 2 2 2 Date Outcome GA Total Labor Labor/2nd/3rd Weight Sex Type Anes PTL Lashaun A1 A5 Name Clin 1971 Term 3.487 kg (7 lb 11 oz) Vag-S pont Living 1986 Term 3.487 kg (7 lb 11 oz) Vag-S pont Living Last Filed Vital Signs Vital Sign Reading Time Taken Comments Blood Pressure 138/72 08/21/2020 11:32 AM PLANER OPERATOR / GRADER Pulse 0 04/24/2016 10:00 AM CDT Temperature - - Respiratory Rate - - Oxygen Saturation - - Inhaled Oxygen Concentration - - Weight 61.2 kg (135 lb) 07/19/2024 3:06 PM PLANER OPERATOR / GRADER Height 154.9 cm (5' 1) 07/19/2024 3:06 PM PLANER OPERATOR / GRADER Body Mass Index 25.51 07/19/2024 3:06 PM PLANER OPERATOR / GRADER Plan of Treatment Health Maintenance Due Date Last Done Comments Colon Cancer Screening-Colonoscopy 1955 Depression Screening 1955 Fall Risk Assessment 1955 Hepatitis C Screening 1955 Hepatitis B Screening 1971 Well Visit 65+ 08/21/2021 08/21/2020, 08/16/2019 Pneumococcal vaccine 65+ (2 of 2 - PCV) 12/31/2021 12/31/2020 Covid-19 Vaccine ( - season) 2024 04/23/2021, 09/27/2020, 09/06/2020 Influenza Vaccine (#1) 2024 , 04/23/2021, 06/04/2020 Breast Cancer Screening-Mammogram 04/20/2024 04/20/2023, 04/20/2023, 02/21/2021 Osteoporosis Screening-Bone Density Scan 04/20/2025 04/20/2023 DTaP/Tdap/Td Vaccine (2 - Td or Tdap) 10/04/2031 Zoster Vaccine Completed 12/06/2021, 10/03/2021 Procedures Procedure Name Priority Date/Time Associated Diagnosis Comments OR ARTHROCENTESIS ASPIR&/INJ MAJOR JT/BURSA W/O US Routine 07/19/2024 2:45 PM PLANER OPERATOR / GRADER Pain in both knees, unspecified chronicity Primary osteoarthritis of both knees OR ARTHROCENTESIS ASPIR&/INJ MAJOR JT/BURSA W/O US Routine 07/19/2024 2:45 PM PLANER OPERATOR / GRADER Pain in both knees, unspecified chronicity Primary osteoarthritis of both knees XR KNEE LEFT 3 VIEWS Schedule Routine, Read Routine (OP Routine) 07/19/2024 2:19 PM PLANER OPERATOR / GRADER Chronic pain of left knee XR KNEE RIGHT 3 VIEWS Schedule Routine, Read Routine (OP Routine) 07/19/2024 2:19 PM PLANER OPERATOR / GRADER Chronic pain of right knee from Last 3 Months Results * OR ARTHROCENTESIS ASPIR&/INJ MAJOR JT/BURSA W/O US (07/19/2024 2:45 PM PLANER OPERATOR / GRADER) Frantz Eddy MD - 07/19/2024 2:45 PM PLANER OPERATOR / GRADER Dimitri Jewell PA 07/19/2024 4:23 PM Large [...] IN CLINIC/BEDSIDE ORD ERABLES Final Result * OR ARTHROCENTESIS ASPIR&/INJ MAJOR JT/BURSA W/O US (07/19/2024 2:45 PM PLANER OPERATOR / GRADER) Frantz Eddy MD - 07/19/2024 2:45 PM PLANER OPERATOR / GRADER Dimitri Jewell PA 07/19/2024 4:23 PM Large [...] Knee Right 3 View (07/19/2024 2:19 PM PLANER OPERATOR / GRADER) Anatomical Region Laterality Modality Lower Extremities, Knee Right Computed Radiography 07/19/2024 6:51 PM PLANER OPERATOR / GRADER Narrative 07/19/2024 6:54 PM PLANER OPERATOR / GRADER EXAM DESCRIPTION: XR KNEE RIGHT 3 VIEWS [...] Lalo Lazcano M.D. MF: PILLO Report ID: [id number] Reading Location: [id number] Procedure Note Lalo Lazcano MD - 07/19/2024 [...] 6:54 PM - Electronically signed by Lalo FERRO: PILLO Report ID: [id number] Reading Location: [id number] Dimitri SMITH IMG XR PROCEDURES Fin al Result * XR Knee Left 3 View (07/19/2024 2:19 PM PLANER OPERATOR / GRADER) Anatomical Region Laterality Modality Lower Extremities, Knee Left Computed Radiography 07/19/2024 6:51 PM PLANER OPERATOR / GRADER Narrative 07/19/2024 6:54 PM PLANER OPERATOR / GRADER EXAM DESCRIPTION: XR KNEE RIGHT 3 VIEWS [...] 6:54 PM - Electronically signed by Lalo FERRO: PILLO Report ID: [id number] Reading Location: [id number] Procedure Note Lalo Lazcano MD - 07/19/2024 [...] Lalo Lazcano M.D. MF: PILLO Report ID: [id number] Reading Location: [id number] Dimitri SMITH IMG XR PROCEDURES Fin al Result from Last 3 Months Insurance [facility] MEDICARE HMO [employer] Member Subscriber Plan / Payer (Ef fective 2022-Present) Name:Sue Garcia Relation to Subscriber:Self Name:Sue Garcia Payer ID:[id number] (NAIC) Group ID:Not on file Type:CORD:USE [facility] Address: [facility] [address] [place] [address] Care Teams Manager In Training Relationship Specialty Start Date End Date Veronica Cui DO [address] [place] [address] [place] [address] PCP - General Sports Medicine 07/19/24
--- OUTSIDE RECORDS SUMMARY | 2024-10-10 00:40 | XMS_ITS | Encounter Summary ---
Author Organization [facility] Address [facility] [place] [address] Care Team Providers Care French Teacher Name Role Phone Stefanie Hardy MD Primary Care Pr ovider Unavailable Kash Fabian MD Unavailable Adina Quiñones MD Unavailable Dillan Campoverde MD Unavailable Unavailable Sunny Martinez, TURBINE ENGINEER-BC, Cora Primary Care Provider Veronica Cui DO Primary Care Provider [phone] Encounter Details Date Type Department Care Team (Late st Contact Info) Description 05/10/2021 MyChart Message Enc [place] [address] [place] [address] Stefanie Hardy MD DEXA Scan Social [...] CDT Gender Identity Female 06/30/2021 1:08 PM PLASTIC BUBBLE PACKER Sexual Orientation Straight 06/30/2021 1: 08 PM PLASTIC BUBBLE PACKER COVID-19 Exposure Response Date Recorded In the last month, have you been in contact with someone who was confirmed or suspected to have Coronavirus / COVID-19? No / Unsure 05/07/2021 1:49 PM CDT documented as of this encounter Plan of Treatment Upcoming Encounters Date Type Department Care Team (Late st Contact Info) Description 02/02/2025 9:20 AM CDT Office Visit [facility] [address] [place] [address] Veronica Cui DO [address] [place] [address] 08/31/2025 10:30 AM PLASTIC BUBBLE PACKER Office Visit [facility] [address] [place] [id number] Aaron Duggan MD [address] [address] documented as of this encounter Visit Diagnoses Not on filedocumented in this encounter Additional Health Concerns Assessment Noted Time PHQ-9 Depression Total Score: 0 01/11/20 9:16 AM CDT documented as of this encounter Care Teams French Teacher Relationship Specialty Start Date End Date Stefanie Hardy MD PCP - General FAMILY PRACTICE 08/15/20 12/21/22 Cora Correa V, [facility]- [address] [place] [address] PCP - General Nurse Practitioner Family 12/22/2201/18 Veronica Cui DO [address] [place] [address] PCP - General FAMILY PRACTICE 01/19/23 Kash Fabian MD [address] [facility] [address] [place] [address] Physician INTERVENTIONAL CARDIOLOGY 09/04/20 Adina Quiñones MD [facility] [address] OBGYN 01/10/21 Dillan Campoverde MD [address] [place] [address] Surgeon GASTROENTEROLOGY 07/09/22 documented as of this encounter
--- OUTSIDE RECORDS SUMMARY | 2024-10-10 00:40 | XMS_ITS | Encounter Summary ---
Author Organization [facility] Address [facility] [place] [address] Care Team Providers Care Truant Officer Name Role Phone Stefanie Hardy MD Primary Care Pr ovider Unavailable Kash Fabian MD Unavailable [phone] Adina Quiñones MD Unavailable Dillan Campoverde MD Unavailable Unavailable Sunny Martinez, OPERATIONS PROJECT MANAGER-BC, Cora Primary Care Provider Veronica Cui DO Primary Care Provider Encounter Details Date Type Department Care Team (Late st Contact Info) Description 04/16/2022 Prep for Procedure [facility] [address] [place] [address] Dillan Campoverde MD Social History Tobacco Use [...] CDT Gender Identity Female 06/30/2021 1:08 PM BIOMATERIALS ENGINEER Sexual Orientation Straight 06/30/2021 1: 08 PM BIOMATERIALS ENGINEER 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 Not on file Not [...] 9:20 AM CDT Office Visit [facility] [address] [place] [address] Veronica Cui DO [address] [place] [address] 08/31/2025 10:30 AM BIOMATERIALS ENGINEER Office Visit [facility] [address] [place] [phone] Aaron Duggan MD [address] [address] documented as of this encounter Visit Diagnoses Not on filedocumented in this encounter Additional Health Concerns Assessment Noted Time PHQ-9 Depression Total Score: 0 10/02/19 22 10:08 AM CDT documented as of this encounter Care Teams Truant Officer Relationship Specialty Start Date End Date Stefanie Hardy MD PCP - General FAMILY PRACTICE 08/15/20 12/21/22 Cora Correa V [facility] [address] [place] [id number] PCP - General Nurse Practitioner Family 12/22/2201/18 Veronica Cui DO [address] [place] [phone] PCP - General FAMILY PRACTICE 01/19/23 Kash Fabian MD [address] [facility] [address] [place] [address] Physician INTERVENTIONAL CARDIOLOGY 09/04/20 Adina Quiñnoes MD [address] [place] [address] [place] [address] OBGYN 01/10/21 Dillan Campoverde MD [address] [place] [address] Surgeon GASTROENTEROLOGY 07/09/22 documented as of this encounter
--- OUTSIDE RECORDS SUMMARY | 2024-10-10 00:40 | XMS_ITS | Encounter Summary ---
Author Organization [facility] Address [address] [place] [address] Care Team Providers Care Meat Packer Name Role Phone Stefanie Hardy MD Primary Care Pr ovider Unavailable Kash Fabian MD Unavailable [phone] Adina Quiñones MD Unavailable Dillan Campoverde MD Unavailable Unavailable Sunny Martinez, CONFIGURATION ENGINEER-BC, Cora Primary Care Provider Veronica Cui DO Primary Care Provider [phone] Encounter Details Date Type Department Care Team ([facility] Contact Info) Description 11/15/2020 Radiology [facility] [address] [place] [address] Kash Fabian MD [address] [facility] [address] [place] [address] Social History Tobacco Use Types Packs/Day Years Used Date Smoking Tobacco: Former Cigarettes Q uit: 2016 Smokeless Tobacco: Never Comments:PCP to staff counsel Alcohol Use Standard Drinks/Week Comments Yes 0 [...] CDT Gender Identity Female 06/30/2021 1:08 PM CORE STRIPPER Sexual Orientation Straight 06/30/2021 1: 08 PM CORE STRIPPER COVID-19 Exposure Response Date Recorded In the last month, have you been in contact with someone who was confirmed or suspected to have Coronavirus / COVID-19? No / Unsure 11/13/2020 12:32 PM CDT documented as of this encounter Plan of Treatment Upcoming Encounters Date Type Department Care Team (Late st Contact Info) Description 02/02/2025 9:20 AM CDT Office Visit [facility] [address] [place] [address] Veronica Cui DO [address] [place] [address] 08/31/2025 10:30 AM CORE STRIPPER [facility] [address] [facility] [place] [phone] Aaron Duggan MD [address] [address] documented as of this encounter Visit Diagnoses Not on filedocumented in this encounter Additional Health Concerns Assessment Noted Time PHQ-9 Depression Total Score: 1 08/23/19 21 2:21 PM CORE STRIPPER documented as of this encounter Care Teams Meat Packer Relationship Specialty Start Date End Date Stefanie Hardy MD PCP - General FAMILY PRACTICE 08/15/20 12/21/22 [facility] [address] [place] [address] [place] [address] PCP - General Nurse Practitioner Family 12/22/2201/18 Veronica Cui DO [address] [facility] [place] [address] PCP - General FAMILY PRACTICE 01/19/23 Kash Fabian MD [address] [place] [address] [address] [place] [address] Physician INTERVENTIONAL CARDIOLOGY 09/04/20 Adina Quiñones MD [address] [place] [address] OBGYN 01/10/21 Dillan Campoverde MD [address] [place] [address] Surgeon GASTROENTEROLOGY 07/09/22 documented as of this encounter
--- OUTSIDE RECORDS SUMMARY | 2024-10-10 00:40 | XMS_ITS | Encounter Summary ---
Author Organization [facility] Address [facility] [place] [address] Care Team Providers Care Furnace Mechanic Helper Name Role Phone Stefanie Hardy MD Primary Care Pr ovider Unavailable Kash Fabian MD Unavailable [phone] Adina Quiñones MD Unavailable Dillan Campoverde MD Unavailable Unavailable Sunny Martinez, VETERINARY PHYSIOLOGIST-BC, Cora Primary Care Provider Veronica Cui DO Primary Care Provider [phone] Encounter Details Date Type Department Care Team (Late st Contact Info) Description 05/01/2022 MyChart Message [facility] Multispecialty Care - [address] [place] [address] Stefanie Hardy MD Medication refill [...] CDT Gender Identity Female 06/30/2021 1:08 PM EXPRESSIVE MUSIC THERAPIST Sexual Orientation Straight 06/30/2021 1: 08 PM EXPRESSIVE MUSIC THERAPIST 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 Not on file Not [...] 9:20 AM CDT Office Visit [facility] [address] [place] [address] Veronica Cui DO [address] [place] [address] 08/31/2025 10:30 AM EXPRESSIVE MUSIC THERAPIST [facility] [address] [place] [phone] Aaron Duggan MD [address] [address] documented as of this encounter Visit Diagnoses Not on filedocumented in this encounter Additional Health Concerns Assessment Noted Time PHQ-9 Depression Total Score: 0 10/02/19 22 10:08 AM CDT documented as of this encounter Care Teams Furnace Mechanic Helper Relationship Specialty Start Date End Date Stefanie Hardy MD PCP - General FAMILY PRACTICE 08/15/20 12/21/22 [facility] [address] [place] [address] PCP - General Nurse Practitioner Family 12/22/2201/18 Veronica Cui DO [address] [place] [address] PCP - General FAMILY PRACTICE 01/19/23 Kash Fabian MD [address] [place] [address] [address] [place] [address] Physician INTERVENTIONAL CARDIOLOGY 09/04/20 Adina Quiñones MD [address] [place] [address] OBGYN 01/10/21 Dillan Campoverde MD [address] [place] [address] Surgeon GASTROENTEROLOGY 07/09/22 documented as of this encounter
--- OUTSIDE RECORDS SUMMARY | 2024-10-10 00:40 | XMS_ITS | Encounter Summary ---
Author Organization [facility] Address [facility]6 [place] [address] Care Team Providers Care Curriculum Specialist Name Role Phone Stefanie Hardy MD Primary Care Pr ovider Unavailable Kash Fabian MD Unavailable [phone] Adina Quiñones MD Unavailable Dillan Campoverde MD Unavailable Unavailable Sunny Martinez, PRINTED CIRCUIT BOARD PANELS DEVELOPER-BC, Cora Primary Care Provider Veronica Cui DO Primary Care Provider [phone] Encounter Details Date Type Department Care Team (Late st Contact Info) Description 02/04/2021 MyChart Message Enc [facility] Multispecialty Care - [facility] [address] [facility] [address] [place] [address] Tommy Wang PA [address] [facility] [place], [place] [id number] Pain Medicine Social History Tobacco Use Types [...] CDT Gender Identity Female 06/30/2021 1:08 PM FORGING PRESS SETTER UP Sexual Orientation Straight 06/30/2021 1: 08 PM FORGING PRESS SETTER UP COVID-19 Exposure Response Date Recorded In the [...] [facility] [address] [place] [address] Veronica Cui DO [address] [place] [address] 08/31/2025 10:30 AM FORGING PRESS SETTER UP Office Visit [facility] [address] [facility] [address] [place] [phone] Aaron Duggan MD [address] [address] documented as of this encounter Visit Diagnoses Not on filedocumented in this encounter Additional Health Concerns Assessment Noted Time PHQ-9 Depression Total Score: 0 01/11/20 9:16 AM CDT documented as of this encounter Care Teams Curriculum Specialist Relationship Specialty Start Date End Date Stefanie Hardy MD PCP - General FAMILY PRACTICE 08/15/20 12/21/22 Cora Correa V, [facility] [address] [place] [address] PCP - General Nurse Practitioner Family 12/22/2201/18 Veronica Cui DO [address] [place] [address] [place] [address] PCP - General FAMILY PRACTICE 01/19/23 Kash Fabian MD [facility] E [facility] [address] [place] [address] Physician INTERVENTIONAL CARDIOLOGY 09/04/20 Adina Quiñones MD [facility] [address] OBGYN 01/10/21 Dillan Campoverde MD [address] [place] [address] Surgeon GASTROENTEROLOGY 07/09/22 documented as of this encounter
--- OUTSIDE RECORDS SUMMARY | 2024-10-10 00:40 | XMS_ITS | Encounter Summary ---
Author Organization [facility] Address [facility] [place] [address] Care Team Providers Care Physical Education Aide Name Role Phone Stefanie Hardy MD Primary Care Pr ovider Unavailable Kash Fabian MD Unavailable [phone] Adina Quiñones MD Unavailable Dillan Campoverde MD Unavailable Unavailable Sunny Martinez, CONTROL OFFICER-BC, Cora Primary Care Provider Veronica Cui DO Primary Care Provider [phone] Encounter Details Date Type Department Care Team (Late st Contact Info) Description 11/21/2021 Prep for Procedure [facility] General Surgery - [address], [address] [place] [address] Dillan Campoverde MD Social History [...] CDT Gender Identity Female 06/30/2021 1:08 PM POTATO PANCAKE FRIER Sexual Orientation Straight 06/30/2021 1: 08 PM POTATO PANCAKE FRIER 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 Not on file Not on file Not [...] Description 02/02/2025 9:20 AM CDT Office Visit [facility] [address] [place] [address] Veronica Cui DO [address] [place] [address] 08/31/2025 10:30 AM POTATO PANCAKE FRIER [facility] [address] [place] [address] Aaron Duggan MD [address] [address] documented as of this encounter Visit Diagnoses Not on filedocumented in this encounter Additional Health Concerns Assessment Noted Time PHQ-9 Depression Total Score: 0 10/02/19 22 10:08 AM CDT documented as of this encounter Care Teams Physical Education Aide Relationship Specialty Start Date End Date Stefanie Hardy MD PCP - General FAMILY PRACTICE 08/15/20 12/21/22 Cora Correa FNP- [address] [place], [place] [phone] PCP - General Nurse Practitioner Family 12/22/2201/18 Veronica Cui DO [address] [place] [address] PCP - General FAMILY PRACTICE 01/19/23 aKsh Fabian MD [address] [place] [address] [address] [place] [address] Physician INTERVENTIONAL CARDIOLOGY 09/04/20 Adina Quiñones MD [address] [place] [address] OBGYN 01/10/21 Dillan Campoverde MD [address] [place] [address] Surgeon GASTROENTEROLOGY 07/09/22 documented as of this encounter
--- OUTSIDE RECORDS SUMMARY | 2024-10-10 00:40 | XMS_ITS | Encounter Summary ---
Author Organization [facility] Address [facility] [place] [address] Care Team Providers Care Deputy Director Name Role Phone Stefanie Hardy MD Primary Care Pr ovider Unavailable Kash Fabian MD Unavailable [phone] Adina Quiñones MD Unavailable Dillan Campoverde MD Unavailable Unavailable Sunny Martinez, BOX OFFICE CLERK-BC, Cora Primary Care Provider eVronica Cui DO Primary Care Provider [phone] Encounter Details Date Type Department Care Team (Latest Contact Info) Description 02/03/2021 MyChart Message Enc [facility] Multispecialty Care - [facility] 3 [facility], [address] [place] [address] Shin Mcmullen MD [address] [place] [address] RE: Medication Questions Social History [...] CDT Gender Identity Female 06/30/2021 1:08 PM MARBLE POLISHER HAND Sexual Orientation Straight 06/30/2021 1: 08 PM MARBLE POLISHER HAND COVID-19 Exposure Response Date Recorded In the [...] [facility] [address] [place] [address] Veronica Cui DO [address] [place] [address] 08/31/2025 10:30 AM MARBLE POLISHER HAND [facility] [address] [place] [address] Aaron Duggan MD [address] [address] documented as of this encounter Visit Diagnoses Not on filedocumented in this encounter Additional Health Concerns Assessment Noted Time PHQ-9 Depression Total Score: 0 01/11/20 9:16 AM CDT documented as of this encounter Care Teams Deputy Director Relationship Specialty Start Date End Date Stefanie Hardy MD PCP - General FAMILY PRACTICE 08/15/20 12/21/22 Cora Correa V BOX OFFICE CLERK- [address] [place] [address] PCP - General Nurse Practitioner Family 12/22/2201/18 Veronica Cui DO [address] [place] [address] [place] [address] PCP - General FAMILY PRACTICE 01/19/23 Kash Fabian MD [address] [place] [address] [address] [place] [address] Physician INTERVENTIONAL CARDIOLOGY 09/04/20 Adina Quiñones MD [facility] [address] [address] OBGYN 01/10/21 Dillan Campoverde MD [address] [place] [address] Surgeon GASTROENTEROLOGY 07/09/22 documented as of this encounter
--- OUTSIDE RECORDS SUMMARY | 2024-10-10 00:40 | XMS_ITS | Referral Summary ---
Author Organization [facility] Address [address] [place] [address] Care Team Providers Care Operations Expert Name Role Phone Veronica Cui DO Primary Care Provider [phone] Encounters Date Type Department Care Team Description 07/19/2024 2:10 PM CLEAN UP SUPERVISOR - 07/19/2024 11:59 PM CLEAN UP SUPERVISOR [facility] DIAG IMG [address] [place] [address] Chronic pain of right knee; Chronic pain of left knee Discharge Disposition: Discharge to home or self care 07/19/2024 2:45 PM CLEAN UP SUPERVISOR Office Visit [facility] Medical Group Orthopedics and Sports Medicine [facility] [address] [place] [address] Dimitri Jewell PA Pain in both knees, unspecified chronicity (Primary Dx); Primary osteoarthritis of both knees from Last 3 Months Allergies Active Allergy Reactions Criticality Noted Date Comments Lisinopril Cough Low 12/04/2022 Tomato Hives Medium 11/02/2018 Medications ibuprofen (ADVIL,MOTRIN) suspension 100 mg/5 mL 800 mg 3 (three) times a day Active vitamin V93-aqpwa acid 0.5-1 mg tablet daily Acti ve [...] on file Legal Sex Female 5:57 PM CLEAN UP SUPERVISOR Gender Identity Not on file Sexual Orientation Not on file 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 Not on file Not on file Not on file Last Filed Vital Signs Vital Sign Reading Time Taken Comments Blood Pressure 138/72 08/21/2020 11:32 AM CLEAN UP SUPERVISOR Pulse 0 04/24/2016 10:00 AM CDT Temperature - - Respiratory Rate - - Oxygen Saturation - - Inhaled Oxygen Concentration - - Weight 61.2 kg (135 lb) 07/19/2024 3:06 PM CLEAN UP SUPERVISOR Height 154.9 cm (5' 1) 07/19/2024 3:06 PM CLEAN UP SUPERVISOR Body Mass Index 25.51 07/19/2024 3:06 PM CLEAN UP SUPERVISOR Plan of Treatment Not on file Procedures Procedure Name Priority Date/Time Associated Diagnosis Comments W[place] ARTHROCENTESIS ASPIR&/INJ MAJOR JT/BURSA W/O US Routine 07/19/2024 2:45 PM CLEAN UP SUPERVISOR Pain in both knees, unspecified chronicity Primary osteoarthritis of both knees W[place] ARTHROCENTESIS ASPIR&/INJ MAJOR JT/BURSA W/O US Routine 07/19/2024 2:45 PM CLEAN UP SUPERVISOR Pain in both knees, unspecified chronicity Primary osteoarthritis of both knees XR KNEE LEFT 3 VIEWS Schedule Routine, Read Routine (OP Routine) 07/19/2024 2:19 PM CLEAN UP SUPERVISOR Chronic pain of left knee XR KNEE RIGHT 3 VIEWS Schedule Routine, Read Routine (OP Routine) 07/19/2024 2:19 PM CLEAN UP SUPERVISOR Chronic pain of right knee from Last 3 Months Results * W[place] ARTHROCENTESIS ASPIR&/INJ MAJOR JT/BURSA W/O US (07/19/2024 2:45 PM CLEAN UP SUPERVISOR) Frantz Eddy MD - 07/19/2024 2:45 PM CLEAN UP SUPERVISOR Dimitri Jewell PA 07/19/2024 4:23 PM Large [...] IN CLINIC/BEDSIDE ORD ERABLES Final Result * [place] ARTHROCENTESIS ASPIR&/INJ MAJOR JT/BURSA W/O US (07/19/2024 2:45 PM CLEAN UP SUPERVISOR) Frantz Eddy MD - 07/19/2024 2:45 PM CLEAN UP SUPERVISOR Dimitri Jewell PA 07/19/2024 4:23 PM Large [...] Knee Right 3 View (07/19/2024 2:19 PM CLEAN UP SUPERVISOR) Anatomical Region Laterality Modality Lower Extremities, Knee Right Computed Radiography 07/19/2024 6:51 PM CLEAN UP SUPERVISOR Narrative 07/19/2024 6:54 PM CLEAN UP SUPERVISOR EXAM DESCRIPTION: XR KNEE RIGHT 3 VIEWS [...] Lalo Lazcano M.D. MF: PILLO Report ID: [id number] Reading Location: [id number] Procedure Note Lalo Lazcano MD - 07/19/2024 [...] Lalo Lazcano M.D. MF: PILLO Report ID: [id number] Reading Location: [id number] Dimitri SMITH IMG XR PROCEDURES Fin al Result * XR Knee Left 3 View (07/19/2024 2:19 PM CLEAN UP SUPERVISOR) Anatomical Region Laterality Modality Lower Extremities, Knee Left Computed Radiography 07/19/2024 6:51 PM CLEAN UP SUPERVISOR Narrative 07/19/2024 6:54 PM CLEAN UP SUPERVISOR EXAM DESCRIPTION: XR KNEE RIGHT 3 VIEWS [...] Lalo Lazcano M.D. MF: PILLO Report ID: [id number] Reading Location: [id number] Procedure Note Lalo Lazcano MD - 07/19/2024 [...] Lalo Lazcano M.D. MF: PILLO Report ID: [id number] Reading Location: [id number] Dimitri SMITH IMG XR PROCEDURES Fin al Result from Last 3 Months Insurance [facility] MEDICARE HMO [employer] Care Teams Operations Expert Relationship Specialty Start Date End Date Veronica Cui DO [address] [place] [address] [place] [address] PCP - General Sports Medicine 07/19/24
--- OUTSIDE RECORDS SUMMARY | 2024-10-10 00:40 | XMS_ITS | Encounter Summary ---
Author Organization [facility] Address [facility] [place] [address] Care Team Providers Care Sample Maker Original Name Role Phone Stefanie Hardy MD Primary Care Pr ovider Unavailable Kash Fabian MD Unavailable [phone] Adina Quiñones MD Unavailable Dillan Campoverde MD Unavailable Unavailable Snuny Martinez, SPINNING LATHE OPERATOR HYDRAULIC-BC, Cora Primary Care Provider Veronica Cui DO Primary Care Provider Encounter Details Date Type Department Care Team (Latest Contact Info) Description 06/17/2021 iOnRoadt Message [facility] [place] [address] Kash Fabian MD [address] [facility] [address] [place] [address] Hydrochlorothiazide 25mg Tablet Social History Tobacco Use [...] CDT Gender Identity Female 06/30/2021 1:08 PM HOME MISSION WORKER Sexual Orientation Straight 06/30/2021 1: 08 PM HOME MISSION WORKER COVID-19 Exposure Response Date Recorded In the last month, have you been in contact with someone who was confirmed or suspected to have Coronavirus / COVID-19? No / Unsure 06/17/2021 1:36 PM HOME MISSION WORKER documented as of this encounter Plan of Treatment Upcoming Encounters Date Type Department Care Team (Late st Contact Info) Description 02/02/2025 9:20 AM CDT Office Visit [facility] [address] [place] [address] Veronica Cui DO [address] [place] [address] 08/31/2025 10:30 AM HOME MISSION WORKER Office Visit [facility] [address] [place] [phone] Aaron Duggan MD [address] [address] documented as of this encounter Visit Diagnoses Not on filedocumented in this encounter Additional Health Concerns Assessment Noted Time PHQ-9 Depression Total Score: 0 01/11/20 9:16 AM CDT documented as of this encounter Care Teams Sample Maker Original Relationship Specialty Start Date End Date Stefanie Hardy MD PCP - General FAMILY PRACTICE 08/15/20 12/21/22 [facility] [address] [facility] [address] [address] PCP - General Nurse Practitioner Family 12/22/2201/18 Veronica Cui DO [address] [place] [address] [place] [address] PCP - General FAMILY PRACTICE 01/19/23 Kash Fabian MD [address] [place] [address] [address] [place] [address] Physician INTERVENTIONAL CARDIOLOGY 09/04/20 Adina Quiñones MD [address] [place] [address] OBGYN 01/10/21 Dillan Campoverde MD [address] [place] [address] Surgeon GASTROENTEROLOGY 07/09/22 documented as of this encounter
--- OUTSIDE RECORDS SUMMARY | 2024-10-10 00:41 | XMS_ITS | Clinical Summary ---
Author Organization [facility] Address [facility] [place] [address] Care Team Providers Care Automation Design Engineer Name Role Phone Kash Fabian MD Unavailable [phone] Adina Quiñones MD Unavailable Dillan Campoverde MD Unavailable Unavailable Veronica Cui DO Primary Care Provider [phone] Allergies Active Allergy Reactions Criticality Noted Date Comments Lisinopril Cough 12/04/2022 Medications busPIRone (BUSPAR) 5 MG tabletIndicatio ns:Grief,Anxiet y TAKE 1-2 TABLETS (5-10 MG TOTAL) BY MOUTH DAILY NEEDED (ANXIETY). 180 tablet 1 02/08/20 24 Active fluticasone-nusrat meterol (ADVAIR DISKUS) 250-50 MCG/ACT inhalerIndicati ons:NAVARRO (dyspnea on exertion),Ex-sm oker Inhale 1 puff into the lungs 2 (two) times daily. 180 capsule 02/09/20 24 Active calcium-magnesi um-zinc 333-133-5 MG TabIndications: Status post foot surgery Take 1 tablet by mouth daily. 90 tablet 1 02/09/20 24 Active losartan (COZAAR) 50 MG tabletIndicatio ns:Essential hypertension take 1 tablet by mouth every day 90 tablet 02/15/20 24 Active ibuprofen (MOTRIN) 800 MG tabletIndicatio ns:Chronic bilateral low back pain without sciatica Take 1 tablet (800 mg total) by mouth every 8 (eight) hours as needed for Pain. 30 tablet 11 08/04/19 25 Active D-1000 EXTRA STRENGTH 25 [...] of 3 doses.Then call 911 25 tablet 08/29/19 25 Active azithromycin (ZITHROMAX) 250 MG tabletIndicatio ns:Wheezing 500 mg on day 1 then 250 mg daily 6 tablet 09/18/19 25 Active albuterol sulfate HFA 108 (90 Base) MCG/ACT inhalerIndicati ons:Wheezing Inhale 2 puffs into the lungs every 6 (six) hours as needed for Wheezing or Shortness of breath. 6.7 g 09/18/19 25 Active atorvastatin (LIPITOR) 80 MG tabletIndicatio ns:Dyslipidemia TAKE 1 TABLET BY MOUTH EVERYDAY AT BEDTIME 90 tablet 09/20/19 25 Active metoprolol tartrate (LOPRESSOR) 25 MG tabletIndicatio ns:Essential hypertension,Dy spnea on exertion TAKE 1/2 TABLET BY MOUTH TWICE A DAY 90 tablet 09/20/19 25 Active albuterol sulfate HFA 108 (90 Base) MCG/ACT inhalerIndicati ons:Bronchitis, Chronic cough Inhale 2 puffs into the lungs every 6 (six) hours as needed for Wheezing or Shortness of breath. 6.7 g 11/14/19 23 025 Discontinued(Re order) metoprolol tartrate (LOPRESSOR) 25 MG tabletIndicatio ns:Essential hypertension,Dy spnea on exertion TAKE 1/2 TABLET BY MOUTH TWICE A DAY 90 tablet 06/17/20 24 025 Discontinued atorvastatin (LIPITOR) 80 MG tabletIndicatio ns:Dyslipidemia TAKE 1 TABLET BY MOUTH EVERYDAY AT BEDTIME 90 tablet 06/20/20 24 025 Discontinued predniSONE (DELTASONE) 20 MG tabletIndicatio ns:Wheezing Take 2 tablets (40 mg total) by mouth daily for 5 days. 10 tablet 09/18/19 25 025 azithromycin (ZITHROMAX) 250 MG tabletIndicatio ns:Wheezing Take 1 tablet (250 mg total) by mouth daily for 5 days. 5 tablet 09/24/19 25 025 Active Problems Problem Noted Date [...] valve insufficiency 11/20/19 21 Essential hypertension 11/19/2020 NVAARRO (dyspnea on exertion) 09/17/2020 Dyslipidemia 08/26/2020 Bilateral sensorineural hearing loss 08/26/2020 Resolved Problems Problem Noted Date Diagnosed Date Resolved Date Stage 2 chronic kidney disease 01/19/2023 04/21/2023 Encounter for screening mamm ogram for malignant neoplasm of breast 01/19/2023 01/26/2023 Elevated blood pressure reading 08/26/2020 01/10/2021 Encounters Date Type Department Care Team Description 09/22/[address] [place] [address] Veronica Cui, DO Concerns 09/17/2024 11:40 AM ENGINE HEAD REPAIRER Office Visit [address] [place] [address] Cora Correa V, TOP STITCHER- Cough (Cough, runny nose for 3 weeks, eyes runny and matted in the morning, has used daytime cold/flu, nasal spray, mucinex and mucinex nightshift) 09/17/2024 Travel 09/13/2024 Telephone [facility] [address] [place] [address] Veronica Cui, Results 09/09/2024 Orders Only [facility] [address] [facility] [place] [address] Veronica Cui, DO 08/30/2024 7:35 AM ENGINE HEAD REPAIRER - 08/30/2024 11:59 PM ENGINE HEAD REPAIRER Hospital Encounter [facility] [address] [place] [address] Elaine Crowe GAS COMPRESSOR TURBINE OPERATOR Discharge Disposition: Home or Self Care (Routine Discharge) 08/30/2024 7:00 AM ENGINE HEAD REPAIRER - 08/30/2024 7:34 AM ENGINE HEAD REPAIRER Hospital Encounter [facility] [address] [place] [address] Veronica Cui, Discharge Disposition: Home or Self Care (Routine Discharge) 08/30/2024 Orders Only [facility] [address] [facility] [place] [place] [address] Veronica Cui, 08/30/2024 Travel 08/25/2024 10:15 AM ENGINE HEAD REPAIRER [facility] [address] [facility] [place] [address] Elaine Crowe GAS COMPRESSOR TURBINE OPERATOR Follow Up 08/25/2024 Travel 08/23/2024 Scan [facility] INFO SRVCS Scanned, [facility] 08/12/2024 Orders Only [facility] [address] [place] [address] Lashonda Obrien LPN 08/10/2024 9:00 AM ENGINE HEAD REPAIRER - 08/10/2024 11:59 PM ENGINE HEAD REPAIRER Hospital Encounter [facility] [address] [place] [address] Veronica Cui DO Discharge Disposition: Home or Self Care (Routine Discharge) 08/10/2024 Telephone [facility] [address] [facility] [address] [place] [address] Veronica Cui DO Results 08/10/2024 Travel 08/04/2024 9:00 AM ENGINE HEAD REPAIRER Office Visit [facility] [address] [facility] [address] [place] [address] Veronica Cui DO Follow Up (6 month follow up. 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 Not on file Not on file Not on file Last Filed Vital Signs Vital Sign Reading Time Taken Comments Blood Pressure 120/76 09/17/2024 11:43 AM ENGINE HEAD REPAIRER Pulse 77 09/17/2024 11:43 AM ENGINE HEAD REPAIRER Temperature 37.1 C (98.7 F) 09/17/2024 11:43 AM ENGINE HEAD REPAIRER Respiratory Rate 16 08/25/2024 10:15 AM ENGINE HEAD REPAIRER Oxygen Saturation 96% 09/17/2024 11:43 AM ENGINE HEAD REPAIRER Inhaled Oxygen Concentration - - Weight 64.4 kg (142 lb) 09/17/2024 11:43 AM ENGINE HEAD REPAIRER Height 153.7 cm (5' 0.5) 09/17/2024 11:43 AM CS T Body Mass Index 27.28 09/17/2024 11:43 AM ENGINE HEAD REPAIRER Plan of Treatment Upcoming Encounters Date Type Department Care Team (Late st Contact Info) Description 02/02/2025 9:20 AM CDT Office Visit [facility] [address] [place], [place] [phone] Veronica Cui DO [address] [place], [place] [phone] 08/31/2025 10:30 AM ENGINE HEAD REPAIRER Office Visit [facility] [address] [place] [phone] Aaron Duggan MD [address] [address] Health Maintenance Due Date Last Done Comments RSV Immunization or 60+ Years (1 - Risk 60-74 years 1-dose series) 2013 Pneumococcal Vaccine: 65+ Years (2 of 2 - PCV) 12/31/2021 12/31/2020 Annual Medicare Wellness Visit 07/10/2023 07/09/2022 COVID-19 Vaccine ( - season) 2024 04/23/2021, 09/27/2020, 09/06/2020 Influenza Adult (#1) 2024 04/21/2023, 04/21/2023, 04/23/2021, Additional history exists PHQ-2 (Physician [place]) 07/20/2024 02/02/2024 Mammogram Screening 08/10/2026 08/10/2024, 04/20/2023, [...] this topic Medical Devices Implanted Type Area Duct Layer Supervisor Device Identifier Shelf Expiration Date Model / Serial / Lot Screw Synthes 4.0 Dary Short Thread 40mm - [id number] Implanted:Qty: 1 on 01/24/2021 by Shin Mcmullen MD at [facility] Screw Left: Ankle SYNTHES 207.640 / / Explanted Type Area Duct Layer Supervisor Device Identifier Shelf Expiration Date Model / Serial / Lot Plate Synthes 5 Hole Left Distal Fibula - [id number] Implanted:Qty: 1 on 01/24/2021 by Shin Mcmullen MD at [facility] Explanted:Qty: 1 on 05/14/2021 at [facility] Plate Left: Ankle SYNTHES [id number] / / Screw Synthes 3.5 Cortex S/Tap 14mm - [id number] Explanted:Qty: 1 on 01/24/2021 at [facility] Screw Left: Ankle SYNTHES 204.814 / / Screw Synthes 2.7 Va Locking S/Tap T8 14mm - [id number] Explanted:Qty: 1 on 01/24/2021 at [facility] Screw Left: Ankle SYNTHES 02.211.014 / / Screw Synthes 4.0 Dary Short Thread 30mm - [id number] Explanted:Qty: 2 on 01/24/2021 at [facility] Screw Left: Ankle SYNTHES 207.630 / / Screw Synthes 2.7 Va Locking S/Tap T8 10mm - [id number] Implanted:Qty: 2 on 01/24/2021 by Shin Mcmullen MD at [facility] Explanted:Qty: 2 on 05/14/2021 at [facility] Screw Left: Ankle SYNTHES 02.211.010 / / Screw Synthes 2.7 Va Locking S/Tap T8 12mm - [id number] Implanted:Qty: 2 on 01/24/2021 by Shin Mcmullen MD at [facility] Explanted:Qty: 2 on 05/14/2021 at [facility] Screw Left: Ankle SYNTHES 02.211.012 / / Screw Synthes 2.7 Cortical Self Tapping 14 - [id number] Implanted:Qty: 1 on 01/24/2021 by Shin Mcmullen MD at [facility] Explanted:Qty: 1 on 05/14/2021 at [facility] Screw Left: Ankle SYNTHES 202.814 / / Screw Synthes 2.7 Cortical Self Tapping 16 - [id number] Implanted:Qty: 2 on 01/24/2021 by Shin Mcmullen MD at [facility] Explanted:Qty: 2 on 05/14/2021 at [facility] Screw Left: Ankle SYNTHES .816 / / Procedures Procedure Name Priority Date/Time Associated Diagnosis Comments CTA CHEST Routine 08/30/2024 8:26 AM ENGINE HEAD REPAIRER Aneurysm of ascending aorta without rupture GGT, GAMMA GLUTAMYLTRANSFERASE Routine 08/30/2024 7:38 AM ENGINE HEAD REPAIRER Transaminitis COMPREHENSIVE METABOLIC PANEL STAT 08/30/2024 7:38 AM ENGINE HEAD REPAIRER Transaminitis US BREAST LT BIRAD LTD Routine 10:54 AM ENGINE HEAD REPAIRER Abnormal mammogram MG DIAG W TREV BILAT DIGI Routine 2024 10:02 AM ENGINE HEAD REPAIRER Abnormal mammogram BONE DENSITY/DEXA Routine 04/20/2023 12: 22 PM CDT Encounter to establish care Stage 2 chronic kidney disease Post-menopausal Ex-smoker HC HEP CORE AB Routine 04/16/2023 7:34 AM CDT Abnormal liver function test COLONOSCOPY GENERIC (SCAN ORDER) 07/28/2016 from Last 3 Months or Most Recently Relevant to Health Maintenance Results * CTA CHEST (08/30/2024 8:26 AM ENGINE HEAD REPAIRER) Anatomical Region Laterality Modality Chest Computed Tomogra phy 08/30/2024 8:33 AM ENGINE HEAD REPAIRER Impressions 08/30/2024 8:36 AM ENGINE HEAD REPAIRER IMPRESSION: Stable mild fusiform aneurysm of the ascending aorta Ordered By: ELAINE CROWE Interpreted By: Jamie Perkins MD, 08/30/2024 8:33 AM Narrative 08/30/2024 8:36 AM ENGINE HEAD REPAIRER [address] [place] [address] CT CHEST WITH CONTRAST CT ANGIOGRAM OF [...] Procedure Note Jamie Perkins MD - 08/30/[address] [place] [address] CT CHEST WITH CONTRAST CT ANGIOGRAM OF [...] Perkins MD, 08/30/2024 8:33 AM Elaine Crowe GAS COMPRESSOR TURBINE OPERATOR CT Final Result * (ABNORMAL) COMPREHENSIVE METABOLIC PANEL (08/30/2024 7:38 AM ENGINE HEAD REPAIRER) GLUCOSE 95 70 - 99 MG/DL 08/30/2024 8:02 AM [facility] BUN 8 7 - 18 MG/DL 08/30/2024 8:02 AM [facility] CREATININE S/P/B 0.82 0.50 - 1.20 MG/DL 08/30/2024 8:02 AM [facility] SODIUM S/P/B 142 136 - 145 MMOL/L 08/30/2024 8:02 AM [facility] POTASSIUM S/P/B 4.0 3.5 - 5.1 MMOL/L 08/30/2024 8:02 AM [facility] CHLORIDE S/P/B 104 100 - 108 MMOL/L 08/30/2024 8:02 AM [facility] CO2 33.9(H) 21.0 - 32.0 MMOL/L 08/30/2024 8:02 AM [facility] CALCIUM S/P/B 9.5 8.5 - 10.1 MG/DL 08/30/2024 8:02 AM [facility] BILIRUBIN TOTAL S/P/B 1.0 0.2 - 1.2 MG/DL 08/30/2024 8:02 AM [facility] Comment: THIS ASSAY IS NOT RECOMMENDED FOR PATIENTS UNDERGOING TREATMENT WITH ELTROMBOPAG DUE TO THE POTENTIAL FOR FALSELY ELEVATED RESULTS. TOTAL PROTEIN S/P/B 6.9 6.4 - 8.2 G/DL 08/30/2024 8:02 AM [facility] ALBUMIN S/P/B 3.7 3.4 - 5.0 G/DL 08/30/2024 8:02 AM [facility] AST 50(H) 15 - 37 U/L 08/30/2024 8:02 AM [facility] ALT 57(H) 14 - 55 U/L 08/30/2024 8:02 AM [facility] ALKALINE PHOSPHATASE S/P/B 116 50 - 136 U/L 08/30/2024 8:02 AM [facility] ANION GAP 4.1(L) 5.0 - 15.0 MMOL/L 08/30/2024 8:02 AM [facility] BUN CREATININE RATIO 9.8 6 - 26 08/30/2024 8:02 AM [facility] A/G RATIO 1.2 1.0 - 2.5 RATIO 08/30/2024 8:02 AM [facility] GFR ESTIMATE 76(L) >90 ML/MIN/1.7 3 M2 08/30/2024 8:02 AM ENGINE HEAD REPAIRER [facility] Comment: NOTE: eGFR is not calculated for patients <18 years of age. This is an estimated GFR calculation using the new CKD EPI creatinine equation without race and so does not require a correction factor for race. This estimated GFR should not be used for calculating drug doses. 08/30/2024 7:38 AM ENGINE HEAD REPAIRER Veronica Cui DO LABORATORY Final Result Performing Organization Address City/[facility]/ZIP Co de Phone Number [facility] [address] [facility] [place] [place] [address], [place] * GGT, GAMMA GLUTAMYLTRANSFERASE (08/30/2024 7:38 AM ENGINE HEAD REPAIRER) GGT 46 5.0 - 55.0 U/L 08/30/2024 12:36 PM ENGINE HEAD REPAIRER [facility] 08/30/2024 7:38 AM ENGINE HEAD REPAIRER Veronica Cui LABORATORY Final Result Performing Organization Address City/[facility] Co de Phone Number [facility] [address] [place] [address], [place] [phone] * BREAST LT [employer] (08/10/2024 10:54 AM ENGINE HEAD REPAIRER) Anatomical Region Laterality Modality Breast Left Ultrasound 08/10/2024 11:0 2 AM ENGINE HEAD REPAIRER Addenda Addendum by Chilo Pineda MD on 08/10/2024 11:18 AM ENGINE HEAD REPAIRER [facility] [address] [place] [address] Addendum: Recommendation of biopsy was discussed with Mary in Dr. Cui's office at 11:[address] Cui was off today. Ordered By: VERONICA CUI Interpreted By: Chilo Pineda MD, 08/10/2024 11:15 AM Impressions 08/10/2024 11:07 AM ENGINE HEAD REPAIRER ===== IMPRESSION: ===== 1. Six-month follow-up of the suspected minimally complex left breast cyst is recommended. 2. Tissue sampling of the calcifications in the lateral superior right breast is recommended. Findings reviewed and discussed with the patient in the presence of the binding printer, KATHERINE. Assessment: ACR BI-RADS 4 - SUSPICIOUS FINDING(S) - BIOPSY SHOULD BE CONSIDERED Recommendation: 1:Biopsy should be consideredRight Comments: Ordered By: VERONICA CUI Interpreted By: Chilo Pineda MD, 08/10/2024 11:02 AM Narrative 08/10/2024 11:07 AM ENGINE HEAD REPAIRER [facility] [address] [place] [address] Examination: Digital bilateral diagnostic mammogram with 3-D tomography and left breast ultrasound. [id number] Exam Date/Time: 08/10/2024 9:07 AM Reason For [...] the patient, in the presence of the binding printer, LS. There is mutual agreement. Patient desires to go to [place] for stereotactic biopsy. us Veronica Cui DO ULTRASOUND Edited Result - Final * MG CUCA JUNE (08/10/2024 10:02 AM ENGINE HEAD REPAIRER) Anatomical Region Laterality Modality Breast Bilateral Mammography, Rad iographic Imaging 08/10/2024 11:0 2 AM ENGINE HEAD REPAIRER Addenda Addendum by Chilo Pineda MD on 08/10/2024 11:18 AM ENGINE HEAD REPAIRER [address] [address] Addendum: Recommendation of biopsy was discussed with Mary in Dr. Cui's office at 11:[address] Cui was off today. Ordered By: VERONICA CUI Interpreted By: Chilo Pineda MD, 08/10/2024 11:15 AM Impressions 08/10/2024 11:07 AM ENGINE HEAD REPAIRER ===== IMPRESSION: ===== 1. Six-month follow-up of the suspected minimally complex left breast cyst is recommended. 2. Tissue sampling of the calcifications in the lateral superior right breast is recommended. Findings reviewed and discussed with the patient in the presence of the binding printer, LS. Assessment: ACR BI-RADS 4 - SUSPICIOUS FINDING(S) - BIOPSY SHOULD BE CONSIDERED Recommendation: 1:Biopsy should be consideredRight Comments: Ordered By: VERONICA CUI Interpreted By: Chilo Pineda MD, 08/10/2024 11:02 AM Narrative 08/10/2024 11:07 AM ENGINE HEAD REPAIRER [address] [address] Examination: Digital bilateral diagnostic mammogram with 3-D tomography and left breast ultrasound. [id number] Exam Date/Time: 08/10/2024 9:07 AM Reason For [...] flow. This suggestive of a cyst. The caavzos are slightly irregular. This may relate to size. Six-month follow-up recommended. The findings were reviewed and discussed with the patient. The need for tissue sampling and biopsy of the calcifications of the right breast were discussed with the patient, in the presence of the binding printer, KATHERINE. There is mutual agreement. Patient desires to go to [place] for stereotactic biopsy. us Veronica Cui DO [...] By: Mono Jaramillo MD, 04/21/2023 9:58 AM us Veronica Cui DO DEXA Final Result * HEPATITIS A,B,& C (04/16/2023 7:34 AM CDT) HEPATITIS B SURFACE AG NON-REACTI VE NON-REACTI VE 04/16/2023 11:46 AM CDT [facility] HEP B CORE TOTAL AB NON-REACTI VE NON-REACTI VE 04/16/2023 12:16 PM CDT [facility] HEP B SURFACE AB NON-REACTI VE 04/16/2023 11:46 AM CDT [facility] HAV IGM NON-REACTI VE NON-REACTI VE 04/16/2023 12:16 PM CDT [facility] HEPATITIS C AB NON-REACTI VE NON-REACTI VE 04/16/2023 12:14 PM CDT [facility] 04/16/2023 7:34 AM CDT us Veronica Cui DO LABORATORY Final Result [facility] [address] [facility] [place] [address], * COLONOSCOPY GENERIC (07/28/2016) 07/28/2016 Narrative 07/28/2016 Ordered by an unspecified provider. us Documents Scanned SCANNING Final Result from Last 3 Months or Most Recently Relevant to Health Maintenance Insurance Social Strategy 1A Social Strategy 1A Care Teams Automation Design Engineer Relationship Specialty Start Date End Date Veronica Cui DO [address] [place] [address] [place], [place] [phone] PCP - General FAMILY PRACTICE 01/19/23 Kash Fabian MD [address] [facility] [address] [place] [address] Physician INTERVENTIONAL CARDIOLOGY 09/04/20 Adina Quiñones MD [address] [place] [address] OBGYN 01/10/21 Dillan Campoverde MD [address] [place] [address] Surgeon GASTROENTEROLOGY 07/09/22
[2024-10-10] MEDS: ACETAMINOPHEN 500 MG TABLET 1000 MG PO (10:29)
[2024-10-10] MEDS: KETOROLAC 15 MG/ML VIAL (*BKC) IV PUSH (10:30)
[2024-10-10 10:31] VITALS: BP 121/72; PULSE 73; RESP 16; TEMP 36.2; O2SAT 100
[2024-10-10] MEDS: LACTATED RINGERS 1,000 ML 30 ML IV CONT ×2 (10:35→13:35)
--- NOTE | 2024-10-10 11:18 | WPDANESEPPF ---
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 - Marly Emmanuel MD s Right Breast Axillary [place] Lymph Node Biopsy with Pre-operative Lymphoscintigraphy - Marly Emmanuel MD Date/Time: 10/10/24 11:18 Surgeon: Marly Emmanuel MD Pre Op Diagnosis: Right Breast DCIS Patient Data Age: 69 Gender: F Height: 1.55 m Weight: 60.2 kg Last Vital Signs Temp 97.2 F L 10/10/24 10:31 Pulse 73 10/10/24 10:31 Resp 16 10/10/24 10:31 BP 121/72 10/10/24 10:31 Pulse Ox 100 10/10/24 10:31 O2 Del Method Room Air 10/10/24 10:31 Allergies Allergy/AdvReac Type Severity Reaction Status Date / Time lisinopril Allergy Severe Cough Verified 10/10/24 10:28 Home Medications ?Medication ?Instructions ?Recorded ?Confirmed ?Type albuterol sulfate 90 mcg/actuation 2 puff inhalation Q6-8H PRN 09/27/24 09/27/24 History aerosol inhaler bronchospasm atorvastatin 80 mg tablet 80 mg PO QPM 09/27/24 09/27/24 History buspirone 5 mg tablet 5 mg PO DAILY 09/27/24 10/10/24 History calcium 167 mg-vitamin D3 1.67 1 cap PO DAILY 09/27/24 09/27/24 History mcg-magnesium 83 mg capsule calcium 333 mg-magnesium 133 mg-D3 1 tablet PO DAILY 09/27/24 09/27/24 History 1.67 mcg-zinc 5 mg tablet cetirizine 10 mg tablet 10 mg PO DAILY 09/27/24 09/27/24 History cholecalciferol (vitamin D3) 25 25 mcg PO DAILY 09/27/24 09/27/24 History mcg (1,000 unit) tablet (Vitamin D3) fesoterodine 8 mg tablet,extended 8 mg PO DAILY 09/27/24 09/27/24 History release 24 hr losartan 50 mg tablet 50 mg PO .dailly 09/27/24 09/27/24 History metoprolol tartrate 25 mg tablet 12.5 mg PO Q12H 09/27/24 10/10/24 History nitroglycerin 0.4 mg sublingual 0.4 mg sublingual Q5M PRN chest 09/27/24 09/27/24 History tablet pain Patient hx anesthesia problems: none Family hx anesthesia problems: none Results Review: All pre-operative results and documents have been reviewed as part of the pre-operative evaluation. [facility] Past Medical History Medical History Hypertension Allergies Surgical History Surgical History H/O: hysterectomy Family History Family History Mother Carcinoma of colon Father Hypertension Social History Social History Smoking packs per day: 1 Smoking cigarettes per day: 20.0 Years smoked: 15 Smoking pack-years: 15.00 Smoking status: Former smoker Smoking end date: 07/20/16 Alcohol intake: current Drinks per week: 2 Substance use: never Do You Feel Safe in your Home?: Yes Lack of Transportation: No Lack of Food: Never True Current Housing: I Have Housing Concerned About Future Housing: No Difficulty Paying Gas/Electric Bills: No Difficulty Paying for Meds: No Currently Unemployed: No Education: Associate Degree Difficulty w/ Childcare or Family Care: No Living arrangements: with family Additional living arrangements comments: Boyfriend Spiritual care concerns: No Anes - Eval Final PreProcedure Day of Procedure 10/10/24 11:18 Patient weight: normal Lungs: normal air movement Airway: Mallampati scale class II and special considerations (Edentulous. ) Neurological: alert and oriented Last oral intake: >/= 8 hours ASA classification: II Emergent: no Anesthetic plan: proceed Anesthesia type and monitoring: general LMA and standard monitoring Results Review: All pre-operative results and documents have been reviewed as part of the pre-operative evaluation. HTN, hyperlipidemia, ex smoker quit 2016. Informed Consent: The patient's anesthetic plan and its attendant risks and benefits were discussed with the patient/family/POA. Questions were solicited and answers provided to the satisfaction of the patient/family/POA.
--- NOTE | 2024-10-10 11:29 | WPDHPUPDATE1 ---
History and Physical Update Update Date/Time: 10/10/24 11:29 History and Physical has been reviewed, including an updated exam of the patient. There are NO changes in the patient's condition. Risks, benefits, and alternatives have been discussed and questions answered. Patient agrees to proceed with procedure.
[2024-10-10] MEDS: ISOSULFAN BLUE 1% INJ 5 ML VIAL SUB-Q (11:58)
[2024-10-10] MEDS: ceFAZolin 2 GM/D5W 50 ML 2 GM/50 ML BAG IVPB (11:58)
[2024-10-10] MEDS: BUPIVACAINE/EPINEPHRINE 0.5% 30 ML VIAL INFILTRATE (11:58)
--- NOTE | 2024-10-10 12:34 | S_PTH ---
PATIENT: Sue Garcia LOC: [facility] U#:[id number] AGE/SX: 69/F ROOM: RE10/10/[address]: Marly Emmanuel MD : 1955 BED: DIS: 10/10/2024 SPEC #: [id number] RECD: 10/10/24 13:02 STATUS: CYNTHIA REQ #: [id number] ERICK: 10/10/24 12:[address]: Marly Emmanuel DEPT: [facility] Surgical RECD BY: Franny Dixon ENTERED: 10/10/24 13:02 SP TYPE: Surgical OTHR DR: Veronica Cui, DO Tissues: A - Breast Lumpectomy B - [place] [address] Breast Procedures: Hematoxylin and Eosin Stain Gross and Microscopic Level 5
--- NOTE | 2024-10-10 12:39 | SUR.OPER ---
breast speciman delivered to [facility] at 12:38
--- NOTE | 2024-10-10 12:44 | SUR.OPER ---
breast speciman excised at 12:34
--- NOTE | 2024-10-10 13:11 | SUR.OPER ---
sentinel lymph node dropped off to Franny in pathology at 13:08
--- NOTE | 2024-10-10 13:32 | P.OP_ITS ---
Procedure Note - Detailed Date of Procedure 10/10/24 Pre-op Diagnosis Right Breast DCIS Post-op Diagnosis Same Procedure Performed excisional biopsy/lumpectomy right breast ductal carcinoma in situ with preoperative needle localization, right sentinel lymph node biopsy with preoperative lymphoscintigraphy Surgeon Marly Emmanuel MD Anesthesia General and Local Indications 69-year-old female with right breast DCIS proven by previous biopsy Findings preoperative needle localization wire was not encountered and within the biopsy specimen, Neoprobe identified sentinel lymph node Description of Procedure The patient was taken to the operating room and placed in the supine position. After adequate induction of general anesthesia, the patient was prepped and draped in the normal sterile fashion. A time-out was then done to verify the patient's identity, as well as the procedure being performed. I began by injecting 50% Lymphazurin blue mixed with saline in each of the 4 quadrants of the nipple-areolar complex. This was then massaged into the right axilla. I then localized the area around the previously placed wire. I then made a curvilinear incision just inferior to the wire. Once to the level of the breast tissue, I raised flaps around the incision to separate the breast tissue off the overlying dermis. The wire was encountered at this point and brought into the operative field. I then carefully dissected around the wire making sure to get adequate tissue especially around the tip of the wire. Once I was circumferentially around the wire, I dissected posteriorly and excise the speci men. I then marked the specimen with a short stitch superiorly and a long stitch laterally. The specimen was then sent to imaging, and the marker was confirmed within the specimen. I then gained hemostasis with the Bovie cautery. The subcutaneous tissue was closed with 3-0 Vicryl suture. The skin was closed with 4-0 Monocryl subcuticular suture. Dermabond was then placed on the wound. Using the Neoprobe counter, a hot spot was found in the right axilla. I then localized the area over the spot, I then made an incision. This was carried down into the right axilla. A lymph node was immediately encountered, this was noted to be hot. I carefully excised this lymph node using both blunt and sharp dissection. The Neoprobe counter was used to confirm this sentinel lymph node. After removal, I used the Neoprobe counter again and no other hot spots were encountered. The right axilla was copiously irrigated. The subcutaneous tissue was closed with 3-0 Vicryl suture. Skin was closed with 4-0 Monocryl subcuticular suture. The patient tolerated the procedure well and was extubated in the operating room postoperatively. She will be sent to the recovery room in stable condition. Estimated Blood Loss 20 Drains No Packing No Pathology Yes Complications No immediate complications Condition Stable Disposition PACU [facility] Billing Surgery - Charge Forward: Surgery Billing
[2024-10-10 13:35] VITALS: BP 126/96; PULSE 93; RESP 20; TEMP 36.1; O2SAT 100
[2024-10-10 13:45] VITALS: BP 142/71; PULSE 93; RESP 15; O2SAT 100
[2024-10-10 14:00] VITALS: BP 138/76; PULSE 90; RESP 14; O2SAT 95
[2024-10-10 14:07] VITALS: BP 132/92; PULSE 94
[2024-10-10 14:45] VITALS: BP 139/74; PULSE 81
== END 2024-10-10 14:47 | disposition home or self-care (01) ==
PROVIDERS: PCP Family Medicine Sports Medicine; Visit Provider Surgery
PROC: (CPT 19301; principal; 2024-10-10 12:00)
PROC: (CPT 19301; 2024-10-10 12:00)
DX: D05.11 Intraductal carcinoma in situ of right breast (principal); I10 Essential (primary) hypertension; Z87.891 Personal history of nicotine dependence
CPT/HCPCS: 19301; 38500; 19281; 36415; 38792; 76098; 80048; 85610; 85730; 88307; 93005; A9270; A9520; C1769; J0690; J1100; J1171; J1885; J2003; J2405; J2704; J3010; J7120

== ENCOUNTER 2024-11-30 09:43 | Outpatient (CLI) | payer MEDICARE, OTHER, SELFPAY ==
--- OUTSIDE RECORDS SUMMARY | 2024-11-30 09:54 | XMS_ITS | Encounter Summary ---
Author Organization [facility] Address [facility] [place] [address] Care Team Providers Care Television Maintenance Worker Name Role Phone Stefanie Hardy MD Primary Care Pr ovider Unavailable Kash Fabian MD Unavailable [phone] Adina Quiñones MD Unavailable Dillan Campoverde MD Unavailable Unavailable Sunny Martinez, PRODUCE FIELD MERCHANDISER-BC, Cora Primary Care Provider Veronica Cui DO Primary Care Provider [phone] Encounter Details Date Type Department Care Team ([facility] Contact Info) Description 11/15/2020 Radiology [facility] [address] [place] [address] Kash Fabian MD [address] [facility] [address] [place] [address] Social History Tobacco Use Types Packs/Day Years Used Date Smoking Tobacco: Former Cigarettes Q uit: 2016 Smokeless Tobacco: Never Comments:PCP to [employer] Alcohol Use Standard Drinks/Week Comments Yes 0 [...] CDT Gender Identity Female 06/30/2021 1:08 PM DOWEL POINTER Sexual Orientation Straight 06/30/2021 1: 08 PM DOWEL POINTER COVID-19 Exposure Response Date Recorded In the last month, have you been in contact with someone who was confirmed or suspected to have Coronavirus / COVID-19? No / Unsure 11/13/2020 12:32 PM CDT documented as of this encounter Plan of Treatment Upcoming Encounters Date Type Department Care Team (Late st Contact Info) Description 02/02/2025 9:20 AM CDT Office Visit [facility] [address] [place] [address] Veronica Cui DO [address] [place] [address] 08/31/2025 10:30 AM DOWEL POINTER [facility] [address] [place] [phone] Aaron Duggan MD [address] [address] documented as of this encounter Visit Diagnoses Not on filedocumented in this encounter Additional Health Concerns Assessment Noted Time PHQ-9 Depression Total Score: 1 08/23/19 21 2:21 PM DOWEL POINTER documented as of this encounter Care Teams Television Maintenance Worker Relationship Specialty Start Date End Date Stefanie Hardy MD PCP - General FAMILY PRACTICE 08/15/20 12/21/22 [facility] [address] [place] [address] [place] [address] PCP - General Nurse Practitioner Family 12/22/2201/18 Veronica Cui DO [address] [facility] [place] [address] PCP - General FAMILY PRACTICE 01/19/23 Kash Fabian MD [address] [place] [address] [address] [place] [address] Physician INTERVENTIONAL CARDIOLOGY 09/04/20 Adina Quiñones MD [address] [place] [address] OBGYN 01/10/21 Dillan Campoverde MD [address] [place] [address] Surgeon GASTROENTEROLOGY 07/09/22 documented as of this encounter
--- OUTSIDE RECORDS SUMMARY | 2024-11-30 09:54 | XMS_ITS | Encounter Summary ---
Author Organization [facility] Address [facility], [address] [place] [address] Care Team Providers Care Pump Operator Name Role Phone Stefanie Hardy MD Primary Care Pr ovider Unavailable Kash Fabian MD Unavailable [phone] Adina Quiñones MD Unavailable Dillan Campoverde MD Unavailable Unavailable Sunny Martinez, HOUSEHOLD COORDINATOR-BC, Cora Primary Care Provider Veronica Cui DO Primary Care Provider [phone] Encounter Details Date Type Department Care Team (Latest Contact Info) Description 02/03/2021 MyChart Message Enc [facility] Medical Group Multispecialty Care - [facility] [address] [facility], [address] [place] [address] Shin Mcmullen MD [address] [place] [address] RE: Medication Questions Social History [...] CDT Gender Identity Female 06/30/2021 1:08 PM CONTENT DEVELOPMENT MANAGER Sexual Orientation Straight 06/30/2021 1: 08 PM CONTENT DEVELOPMENT MANAGER COVID-19 Exposure Response Date Recorded In the last month, have you been in contact with someone who was confirmed or suspected to have Coronavirus / COVID-19? No / Unsure 02/06/2021 10:14 AM CDT documented as of this encounter Plan of Treatment Upcoming Encounters Date Type Department Care Team (Late st Contact Info) Description 02/02/2025 9:20 AM CDT Office Visit [facility] [address] [place] [address] Veronica Cui DO [address] [place] [address] 08/31/2025 10:30 AM CONTENT DEVELOPMENT MANAGER [facility] [address] [place] [phone] Aaron Duggan MD [address] [address] documented as of this encounter Visit Diagnoses Not on filedocumented in this encounter Additional Health Concerns Assessment Noted Time PHQ-9 Depression Total Score: 0 01/11/20 9:16 AM CDT documented as of this encounter Care Teams Pump Operator Relationship Specialty Start Date End Date Stefanie Hardy MD PCP - General FAMILY PRACTICE 08/15/20 12/21/22 Cora Correa V HOUSEHOLD COORDINATOR- [address] [place] [address] PCP - General Nurse Practitioner Family 12/22/2201/18 Veronica Cui DO [address] [place] [address] [place] [address] PCP - General FAMILY PRACTICE 01/19/23 Kash Fabian MD [address] [place] [address] [address] [place] [address] Physician INTERVENTIONAL CARDIOLOGY 09/04/20 Adina Quiñones MD [facility] [address] [address] OBGYN 01/10/21 Dillan Campoverde MD [address] [place] [address] Surgeon GASTROENTEROLOGY 07/09/22 documented as of this encounter
--- OUTSIDE RECORDS SUMMARY | 2024-11-30 09:54 | XMS_ITS | Encounter Summary ---
Author Organization [facility] Address [facility] [place] [address] Care Team Providers Care Patient Consumer Marketer Name Role Phone Stefanie Hardy MD Primary Care Pr ovider Unavailable Kash Fabian MD Unavailable [phone] Adina Quiñones MD Unavailable Dillan Campoverde MD Unavailable Unavailable Sunny Martinez, ROLL CLEANER-BC, Cora Primary Care Provider Veronica Cui DO Primary Care Provider [phone] Encounter Details Date Type Department Care Team (Late st Contact Info) Description 11/21/2021 Prep for Procedure [facility] Medical Group General Surgery - [address], [address] [place] [address] Dillan Campoverde MD Social History [...] CDT Gender Identity Female 06/30/2021 1:08 PM SAND SYSTEM OPERATOR Sexual Orientation Straight 06/30/2021 1: 08 PM SAND SYSTEM OPERATOR 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 file Not on file Not [...] Description 02/02/2025 9:20 AM CDT Office Visit [facility] [address] [place] [address] Veronica Cui DO [address] [place] [address] 08/31/2025 10:30 AM SAND SYSTEM OPERATOR [facility] [address] [place] [address] Aaron Duggan MD [address] [address] documented as of this encounter Visit Diagnoses Not on filedocumented in this encounter Additional Health Concerns Assessment Noted Time PHQ-9 Depression Total Score: 0 10/02/19 22 10:08 AM CDT documented as of this encounter Care Teams Patient Consumer Marketer Relationship Specialty Start Date End Date Stefanie Hardy MD PCP - General FAMILY PRACTICE 08/15/20 12/21/22 Cora Correa FNP- [address] [place], [place] [id number] PCP - General Nurse Practitioner Family 12/22/2201/18 Veronica Cui DO [address] [place], [place] [id number] PCP - General FAMILY PRACTICE 01/19/23 Kash Fabian MD [address] [place] [address] [address] [place] [address] Physician INTERVENTIONAL CARDIOLOGY 09/04/20 Adina Quiñones MD [address] [place] [id number] OBGYN 01/10/21 Dillan Campoverde MD [address] [place] [address] Surgeon GASTROENTEROLOGY 07/09/22 documented as of this encounter
--- OUTSIDE RECORDS SUMMARY | 2024-11-30 09:54 | XMS_ITS | Encounter Summary ---
Author Organization [facility] Address [facility] [place] [address] Care Team Providers Care Minute Clerk Name Role Phone Stefanie Hardy MD Primary Care Pr ovider Unavailable Kash Fabian MD Unavailable [phone] Adina Quiñones MD Unavailable Dillan Campoverde MD Unavailable Unavailable Sunny Martinez, SOCIAL SERVICE ASSISTANT-BC, Cora Primary Care Provider Veronica Cui DO Primary Care Provider [phone] Encounter Details Date Type Department Care Team (Late st Contact Info) Description 04/16/2022 Prep for Procedure [facility] [address] [address] Dillan Campoverde MD Social History Tobacco Use [...] CDT Gender Identity Female 06/30/2021 1:08 PM REGIONAL LOSS PREVENTION MANAGER Sexual Orientation Straight 06/30/2021 1: 08 PM REGIONAL LOSS PREVENTION MANAGER 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 Not on file Not [...] Description 02/02/2025 9:20 AM CDT [facility] [address] [place] [address] Veronica Cui DO [address] [place] [address] 08/31/2025 10:30 AM REGIONAL LOSS PREVENTION MANAGER Office Visit [facility] [address] [place] [address] Aaron Duggan MD [address] [address] documented as of this encounter Visit Diagnoses Not on filedocumented in this encounter Additional Health Concerns Assessment Noted Time PHQ-9 Depression Total Score: 0 10/02/19 22 10:08 AM CDT documented as of this encounter Care Teams Minute Clerk Relationship Specialty Start Date End Date Stefanie Hardy MD PCP - General FAMILY PRACTICE 08/15/20 12/21/22 Cora Correa [facility] [address] [place] [id number] PCP - General Nurse Practitioner Family 12/22/2201/18 Veronica Cui DO [address] [place] [id number] PCP - General FAMILY PRACTICE 01/19/23 Kash Fabian MD [address] [facility] [address] [place] [address] Physician INTERVENTIONAL CARDIOLOGY 09/04/20 Adina Quiñones MD [address] [place] [address] [place] [address] OBGYN 01/10/21 Dillan Campoverde MD [address] [place] [address] Surgeon GASTROENTEROLOGY 07/09/22 documented as of this encounter
--- OUTSIDE RECORDS SUMMARY | 2024-11-30 09:54 | XMS_ITS | Encounter Summary ---
Author Organization [facility] Address [facility] [place] [address] Care Team Providers Care Silk Top Hat Body Maker Name Role Phone Stefanie Hardy MD Primary Care Pr ovider Unavailable Kash Fabian MD Unavailable [phone] Adina Quiñones MD Unavailable Dillan Campoverde MD Unavailable Unavailable Sunny Martinez, HYDRAULIC MINER BLASTING-BC, Cora Primary Care Provider Veronica Cui DO Primary Care Provider Encounter Details Date Type Department Care Team (Late st Contact Info) Description 05/10/2021 MyChart Message Enc [place] [address] [place] [address] Stefanie Hardy MD DEXA Scan Social [...] CDT Gender Identity Female 06/30/2021 1:08 PM BUTTONER Sexual Orientation Straight 06/30/2021 1: 08 PM BUTTONER COVID-19 Exposure Response Date Recorded In the last month, have you been in contact with someone who was confirmed or suspected to have Coronavirus / COVID-19? No / Unsure 05/07/2021 1:49 PM CDT documented as of this encounter Plan of Treatment Upcoming Encounters Date Type Department Care Team (Late st Contact Info) Description 02/02/2025 9:20 AM CDT Office Visit [facility] [address] [place] [address] Veronica Cui DO [address] [place] [address] 08/31/2025 10:30 AM BUTTONER Office Visit [facility] [address] [place] [phone] Aaron Duggan MD [address] [address] documented as of this encounter Visit Diagnoses Not on filedocumented in this encounter Additional Health Concerns Assessment Noted Time PHQ-9 Depression Total Score: 0 01/11/20 9:16 AM CDT documented as of this encounter Care Teams Silk Top Hat Body Maker Relationship Specialty Start Date End Date Stfeanie Hardy MD PCP - General FAMILY PRACTICE 08/15/20 12/21/22 Cora Correa V, [facility]- [address] [place] [address] PCP - General Nurse Practitioner Family 12/22/2201/18 Veronica Cui DO [address] [place] [address] PCP - General FAMILY PRACTICE 01/19/23 Kash Fabian MD [address] [facility] [address] [place] [address] Physician INTERVENTIONAL CARDIOLOGY 09/04/20 Adina Quiñones MD [facility] [address] [id number] OBGYN 01/10/21 Dillan Campoverde MD [address] [place] [address] Surgeon GASTROENTEROLOGY 07/09/22 documented as of this encounter
--- OUTSIDE RECORDS SUMMARY | 2024-11-30 09:54 | XMS_ITS | Encounter Summary ---
Author Organization [facility] Address [facility] [place] [address] Care Team Providers Care Drop Count Associate Name Role Phone Kash Fabian MD Unavailable [phone] Adina Quiñones MD Unavailable Dillan Campoverde MD Unavailable Unavailable Veronica Cui DO Primary Care Provider [phone] Encounter Details Date Type Department Care Team (Late st Contact Info) Description 11/03/2024 Abstract [facility] [address] [place], [place] [id number] Veronica Cui DO [address] [place], [place] [id number] Social History Tobacco Use Types Packs/Day Years [...] CDT Gender Identity Female 06/30/2021 1:08 PM BULK COOLER INSTALLER Sexual Orientation Straight 06/30/2021 1: 08 PM BULK COOLER INSTALLER 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 Not on file Not on file documented as of this encounter Plan of Treatment Upcoming Encounters Date Type Department Care Team (Late st Contact Info) Description 02/02/2025 9:20 AM CDT Office Visit [facility] [address] [place] [address] Veronica Cui DO [address] [place] [address] 08/31/2025 10:30 AM BULK COOLER INSTALLER [facility] [address] [place] [id number] Aaron Duggan MD [facility] [address] [place] [address] documented as of this encounter Visit Diagnoses Not on filedocumented in this encounter Additional Health Concerns Assessment Noted Time PHQ-9 Depression Total Score: 0 10/02/19 22 10:08 AM CDT documented as of this encounter Care Teams Drop Count Associate Relationship Specialty Start Date End Date Veronica Cui DO [address] [place] [address] PCP - General FAMILY PRACTICE 01/19/23 Kash Fabian MD [facility] [address] [facility] [address] [place] [address] Physician INTERVENTIONAL CARDIOLOGY 09/04/20 Adina Quiñones MD [facility] [address] [place] [address] OBGYN 01/10/21 Dillan Campoverde MD [address] [place] [address] Surgeon GASTROENTEROLOGY 07/09/22 documented as of this encounter
--- OUTSIDE RECORDS SUMMARY | 2024-11-30 09:54 | XMS_ITS | Encounter Summary ---
Author Organization [facility] Address [address] [place] [address] Care Team Providers Care Proctologist Name Role Phone Unavailable Primary Care Provider Unavailabl e Reason for Referral * Radiation Therapy (Routine) - Open Specialty Diagnoses / Procedures Referred By Elda uriarte Referred To Contact Diagnoses Ductal carcinoma in situ (DCIS) of right breast Procedures UT OFFICE/OUTPATIENT ESTABLISHED MOD MDM 30 MIN UT OFFICE/OUTPATIENT NEW MODERATE MDM 45 MINUTES Ramirez Chopra MD [address] [facility] [address] [place] [address] Phone: tel: fax: Referral ID Status Reason Start Date Expiration Date Visits Re quested Visits Authorized [id number] Open 11/30/2024 11/30/2025 1 1 Encounter Details Date Type Department Care Team (Late st Contact Info) Description 11/30/2024 9:00 AM CDT Office Visit [facility] - [place] [address] [facility] [address] [place] [address] Juwan Torre MD [address] [facility] [address] [place] [address] Ductal carcinoma in situ (DCIS) of left breast (Primary Dx); Ductal carcinoma in situ (DCIS) of right breast Social History Tobacco Use Types Packs/Day Years Used Date Smoking Tobacco: Former Cigarettes 2 55.4 S tarted: 07/20/1969 Smokeless Tobacco: Never Tobacco Cessation:Counseling Given: Not Answered Alcohol Use Standard Drinks/Week Comments Never 0 (1 standard drink = 0.6 oz pur e alcohol) occasional Comments Unknown Sex and Gender Information Value Date Recorded Sex Assigned at Not on file Legal Sex Female 3:20 PM CDT Gender Identity Not on file Sexual Orientation Not on file documented as of this encounter Last Filed Vital Signs Vital Sign Reading Time Taken Comments Blood Pressure 131/79 11/30/2024 9:14 AM CDT Pulse 70 11/30/2024 9:14 AM CDT Temperature 36.6 C (97.8 F) 11/30/2024 9:14 AM CDT Respiratory Rate 15 11/30/2024 9:14 AM CDT Oxygen Saturation 95% 11/30/2024 9:14 AM CDT Inhaled Oxygen Concentration - - Weight 59.2 kg (130 lb 9.6 oz) 11/30/2024 9:14 A M CDT Height - - Body Mass Index - - documented in this encounter Plan of Treatment Upcoming Encounters Date Type Department Care Team (Late st Contact Info) Description 01/30/2025 9:45 AM CDT Office Visit [facility]cology and H[facility] [address] [facility] [address] [place] [phone] Juwan Torre MD [address] [facility] [address] [place] [address] Scheduled Orders Name Type Priority Associated Diagnoses Orde r Schedule CBC WITH DIFFERENTIAL Lab Stat Ductal carcinoma in situ (DCIS) of left breast Expected: 11/30/2024, Expires: 11/30/2025 COMPREHENSIVE METABOLIC PANEL Lab Stat Ductal carcinoma in situ (DCIS) of left breast Expected: 11/30/2024, Expires: 11/30/2025 CBC WITH DIFFERENTIAL Lab Stat Ductal carcinoma in situ (DCIS) of left breast Expected: 01/25/2025, Expires: 11/30/2025 COMPREHENSIVE METABOLIC PANEL Lab Stat Ductal carcinoma in situ (DCIS) of left breast Expected: 01/25/2025, Expires: 11/30/2025 Scheduled Referrals Name Type Priority Associated Diagnoses Orde r Schedule AMB REFERRAL TO RADIATION ONCOLOGY Outpatient Referral Routine Ductal carcinoma in situ (DCIS) of right breast Ordered: 11/30/2024 documented as of this encounter Visit Diagnoses Diagnosis Ductal carcinoma in situ (DCIS) of left breast- Primary 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
--- OUTSIDE RECORDS SUMMARY | 2024-11-30 09:54 | XMS_ITS | Encounter Summary ---
Author Organization [facility] Address [facility] [place] [address] Care Team Providers Care Architecture Faculty Member Name Role Phone Stefanie Hardy MD Primary Care Pr ovider Unavailable Kash Fabian MD Unavailable [phone] Adina Quiñones MD Unavailable Dillan Campoverde MD Unavailable Unavailable Sunny Martinez, PRODUCT INSPECTION SUPERVISOR-BC, Cora Primary Care Provider Veronica Cui DO Primary Care Provider [phone] Encounter Details Date Type Department Care Team (Latest Contact Info) Description 06/17/2021 5k Fanst Message [facility] [place] [address] Kash Fabian MD [address] [facility] [address] [place] [address] Hydrochlorothiazide 25mg Tablet Social History Tobacco Use [...] CDT Gender Identity Female 06/30/2021 1:08 PM UNDERWRITING MANAGER Sexual Orientation Straight 06/30/2021 1: 08 PM UNDERWRITING MANAGER COVID-19 Exposure Response Date Recorded In the last month, have you been in contact with someone who was confirmed or suspected to have Coronavirus / COVID-19? No / Unsure 06/17/2021 1:36 PM UNDERWRITING MANAGER documented as of this encounter Plan of Treatment Upcoming Encounters Date Type Department Care Team (Late st Contact Info) Description 02/02/2025 9:20 AM CDT Office Visit [facility] [address] [place] [address] Veronica Cui DO [address] [place] [address] 08/31/2025 10:30 AM UNDERWRITING MANAGER Office Visit [facility] [address] [place] [phone] Aaron Duggan MD [address] [address] documented as of this encounter Visit Diagnoses Not on filedocumented in this encounter Additional Health Concerns Assessment Noted Time PHQ-9 Depression Total Score: 0 01/11/20 9:16 AM CDT documented as of this encounter Care Teams Architecture Faculty Member Relationship Specialty Start Date End Date Stefanie Hardy MD PCP - General FAMILY PRACTICE 08/15/20 12/21/22 [facility] [address] [facility] [place] [address] PCP - General Nurse Practitioner Family 12/22/2201/18 Veronica Cui DO [address] [place] [address] [place] [address] PCP - General FAMILY PRACTICE 01/19/23 Kash Fabian MD [address] [place] [address] [address] [place] [address] Physician INTERVENTIONAL CARDIOLOGY 09/04/20 Adina Quiñones MD [address] [place] [address] OBGYN 01/10/21 Dillan Campoverde MD [address] [place] [address] Surgeon GASTROENTEROLOGY 07/09/22 documented as of this encounter
--- OUTSIDE RECORDS SUMMARY | 2024-11-30 09:54 | XMS_ITS | Clinical Summary ---
Author Organization [facility] Address [facility] [place] [address] Care Team Providers Care Scientific Helper Name Role Phone Kash Fabian MD Unavailable [phone] Adina Quiñones MD Unavailable Dillan Campoverde MD Unavailable Unavailable Veronica Cui DO Primary Care Provider [phone] Allergies Active Allergy Reactions Criticality Noted Date Comments Lisinopril Cough 12/04/2022 Medications fluticasone-salm eterol (ADVAIR DISKUS) 250-50 MCG/ACT inhalerIndicatio ns:NAVARRO (dyspnea on exertion),Ex-smo ker Inhale 1 puff into the lungs 2 (two) times daily. 180 capsule 4 Active calcium-magnesiu m-zinc 333-133-5 MG TabIndications:S tatus post foot surgery Take 1 tablet by mouth daily. 90 tablet 4 Active ibuprofen (MOTRIN) 800 MG tabletIndication s:Chronic bilateral low back pain without sciatica Take 1 tablet (800 mg total) by mouth every 8 (eight) hours as needed for Pain. 30 tablet 5 Active D-1000 EXTRA STRENGTH 25 MCG (1000 UT) Tab tabletIndication s:Osteopenia of neck of left femur TAKE 1 TABLET BY MOUTH EVERY DAY 90 tablet 5 Active cetirizine (ZYRTEC) 10 MG tabletIndication s:Seasonal allergies TAKE 1 TABLET BY MOUTH EVERY DAY 90 tablet 1 5 Active fesoterodine ER (TOVIAZ) 8 MG 24 hr tabletIndication s:Overactive bladder TAKE 1 TABLET BY MOUTH EVERY DAY 90 tablet 1 5 Active nitroglycerin (NITROSTAT) 0.[address] 1 tablet (0.4 mg total) under the tongue every 5 (five) minutes as needed for Chest Pain. Maximum of 3 doses.Then call 911 25 tablet 1 5 Active azithromycin (ZITHROMAX) 250 MG tabletIndication s:Wheezing 500 mg on day 1 then 250 mg daily 6 tablet 5 Active Additional Information Patient not taking.Reported on 11/26/2024 albuterol sulfate HFA 108 (90 Base) MCG/ACT inhalerIndicatio ns:Wheezing Inhale 2 puffs into the lungs every 6 (six) hours as needed for Wheezing or Shortness of breath. 6.7 g 5 Active atorvastatin (LIPITOR) 80 MG tabletIndication s:Dyslipidemia TAKE 1 TABLET BY MOUTH EVERYDAY AT BEDTIME 90 tablet 5 Active metoprolol tartrate (LOPRESSOR) 25 MG tabletIndication s:Essential hypertension,Dys pnea on exertion TAKE 1/2 TABLET BY MOUTH TWICE A DAY 90 tablet 5 Active losartan (COZAAR) 50 MG tabletIndication s:Essential hypertension TAKE 1 TABLET BY MOUTH EVERY DAY 90 tablet 5 Active busPIRone (BUSPAR) 5 MG tabletIndication s:Grief,Anxiety TAKE 1-2 TABLETS (5-10 MG TOTAL) BY MOUTH DAILY NEEDED (ANXIETY). 180 tablet 5 Active mupirocin (BACTROBAN) 2 % ointmentIndicati ons:Abrasion Apply topically every evening for 7 days. 22 g 5 025 Active cephALEXin (KEFLEX) 500 MG capsuleIndicatio ns:Abrasion Take 1 capsule (500 mg total) by mouth 2 (two) times daily for 3 days. 6 capsule 5 025 Active Problems Problem Noted Date Diagnosed [...] rupture 021 Nonrheumatic aortic valve insufficiency 11/20/19 Essential hypertension 11/19/2020 NAVARRO (dyspnea on exertion) 09/17/2020 Dyslipidemia 08/26/2020 Bilateral sensorineural hearing loss 08/26/2020 Resolved Problems Problem Noted Date Diagnosed Date Resolved Date Stage 2 chronic kidney disease 01/19/2023 04/21/2023 Encounter for screening mamm ogram for malignant neoplasm of breast 01/19/2023 01/26/2023 Elevated blood pressure reading 08/26/2020 01/10/2021 Encounters Date Type Department Care Team Description 11/26/2024 10:20 AM CDT Office Visit [address] [place] [address] Donald Correa MD Derm Problem (Abrasion to left lower leg. Notes while walking on a ramp going into shed scraped leg on 11/23/2024. ) 11/26/2024 Travel 11/03/[address] [place] [address] Veronica Cui, DO 10/25/2024 Scan [facility] INFO SRVCS Scanned, [facility] 10/12/[address] [place] [address] Veronica Cui, DO 10/10/2024 Scan MG HEALTH INFO SRVCS Scanned, [facility] Procedure (SCAN) 09/22/[address] [place] [address] Veronica Cui DO Concerns 09/20/2024 Scan Validity Sensors INFO SRVCS Scanned, [facility] 09/17/2024 11:40 AM LABOURERS Office Visit [address] [place] [address] Cora Correa V, AIRPLANE RIGGER-BC Cough (Cough, runny nose for 3 weeks, eyes runny and matted in the morning, has used daytime cold/flu, nasal spray, mucinex and mucinex nightshift) 09/17/2024 Travel 09/13/[address] [place] [address] Veronica Cui DO Results 09/09/2024 Orders Only [address] [place] [address] Veronica Cui DO from Last 3 Months Immunizations Immunization Administration Dates Next Due Fluzone High Dose [...] CDT Gender Identity Female 06/30/2021 1:08 PM LABOURERS Sexual Orientation Straight 06/30/2021 1: 08 PM LABOURERS 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 Not on file Not on file Last Filed Vital Signs Vital Sign Reading Time Taken Comments Blood Pressure 133/84 11/26/2024 9:54 AM CDT Pulse 79 11/26/2024 9:54 AM CDT Temperature 37.3 C (99.1 F) 11/26/2024 9:54 AM CDT Respiratory Rate 16 11/26/2024 9:54 AM CDT Oxygen Saturation 97% 11/26/2024 9:54 AM CDT Inhaled Oxygen Concentration - - Weight 59.4 kg (131 lb) 11/26/2024 9:54 AM CDT Height 152.5 cm (5' 0.05 ) 11/26/2024 9:54 AM CD T Body Mass Index 25.54 11/26/2024 9:54 AM CDT Plan of Treatment Upcoming Encounters Date Type Department Care Team (Late st Contact Info) Description 02/02/2025 9:20 AM CDT Office Visit [facility] [address] [place] [phone] Veronica Cui DO [address] [place] [id number] 08/31/2025 10:30 AM LABOURERS Office Visit [facility] [address] [place] [phone] Aaron Duggan MD [facility] [address] [place] [address] Health Maintenance Due Date Last Done Comments RSV Immunization or 60+ Years (1 - Risk 60-74 years 1-dose series) 2013 Pneumococcal Vaccine: 50+ Years (2 of 2 - PCV) 12/31/2021 12/31/2020 Annual Medicare Wellness Visit 07/10/2023 07/09/2022 COVID-19 Vaccine ( - season) 2024 04/23/2021, 09/27/2020, 09/06/2020 PHQ-2 (Physician Otter) 07/20/2024 02/02/2024 Mammogram Screening 08/10/2026 08/10/2024, 04/20/2023, [...] this topic Medical Devices Implanted Type Area Rug Renovator Device Identifier Shelf Expiration Date Model / Serial / Lot Screw Synthes 4.0 Dary Short Thread 40mm - [id number] Implanted:Qty: 1 on 01/24/2021 by Shin Mcmullen MD at [facility] Screw Left: Ankle SYNTHES 207.640 / / Explanted Type Area Rug Renovator Device Identifier Shelf Expiration Date Model / Serial / Lot Plate Synthes 5 Hole Left Distal Fibula - [id number] Implanted:Qty: 1 on 01/24/2021 by Shin Mcmullen MD at [facility] Explanted:Qty: 1 on 05/14/2021 at [facility] Plate Left: Ankle SYNTHES 02.118.405S / / Screw Synthes 3.5 Cortex S/Tap 14mm - [id number] Explanted:Qty: 1 on 01/24/2021 at [facility] Screw Left: Ankle SYNTHES 204.814 / / Screw Synthes 2.7 Va Locking S/Tap T8 14mm - [id number] Explanted:Qty: 1 on 01/24/2021 at [facility] Screw Left: Ankle SYNTHES 02.211.014 / / Screw Synthes 4.0 Dary Short Thread 30mm - [id number] Explanted:Qty: 2 on 01/24/2021 at [facility] Screw Left: Ankle SYNTHES 207.630 / / Screw Synthes 2.7 Va Locking S/Tap T8 10mm - [id number] Implanted:Qty: 2 on 01/24/2021 by Shin Mcmullen MD at [facility] Explanted:Qty: 2 on 05/14/2021 at [facility] Screw Left: Ankle SYNTHES 02.211.010 / / Screw Synthes 2.7 Va Locking S/Tap T8 12mm - [id number] Implanted:Qty: 2 on 01/24/2021 by Shin Mcmullen MD at [facility] Explanted:Qty: 2 on 05/14/2021 at [facility] Screw Left: Ankle SYNTHES 02.211.012 / / Screw Synthes 2.7 Cortical Self Tapping 14 - [id number] Implanted:Qty: 1 on 01/24/2021 by Shin Mcmullen MD at [facility] Explanted:Qty: 1 on 05/14/2021 at [facility] Screw Left: Ankle SYNTHES 202.814 / / Screw Synthes 2.7 Cortical Self Tapping 16 - [id number] Implanted:Qty: 2 on 01/24/2021 by Shin Mcmullen MD at [facility] Explanted:Qty: 2 on 05/14/2021 at [facility] Screw Left: Ankle SYNTHES .816 / / Procedures Procedure Name Priority Date/Time Associated Diagnosis Comments PROCEDURE GENERIC (SCAN ORDER) 10/10/2024 PROCEDURE GENERIC (SCAN ORDER) 10/10/2024 PROCEDURE GENERIC (SCAN ORDER) 10/10/2024 MG DIAG W TREV BILAT DIGI Routine 08/10/2024 10:02 AM LABOURERS Abnormal mammogram BONE DENSITY/DEXA Routine 04/20/2023 12: 22 PM CDT Encounter to establish care Stage 2 chronic kidney disease Post-menopausal Ex-smoker HC HEP CORE AB Routine 04/16/2023 7:34 AM CDT Abnormal liver function test COLONOSCOPY GENERIC (SCAN ORDER) 07/28/2016 from Last 3 Months or Most Recently Relevant to Health Maintenance Results * PROCEDURE GENERIC (SCAN ORDER) (10/10/2024) 10/10/2024 [facility] Scanned SCANNING Final Resu lt * PROCEDURE GENERIC (SCAN ORDER) (10/10/2024) 10/10/2024 [facility] Scanned SCANNING Final Resu lt * PROCEDURE GENERIC (SCAN ORDER) (10/10/2024) 10/10/2024 [facility] Scanned SCANNING Final Resu lt * MG DIAG W TREV BILAT DIGI (08/10/2024 10:02 AM LABOURERS) Anatomical Region Laterality Modality Breast Bilateral Mammography, Rad iographic Imaging 08/10/2024 11:0 2 AM LABOURERS Addenda Addendum by Chilo Pineda MD on 08/10/2024 11:18 AM LABOURERS [address] [address] Addendum: Recommendation of biopsy was discussed with Mary in Dr. Cui's office at 11:[address] Cui was off today. Ordered By: VERONICA CUI Interpreted By: Chilo Pineda MD, 08/10/2024 11:15 AM Impressions 08/10/2024 11:07 AM LABOURERS ===== IMPRESSION: ===== 1. Six-month follow-up of the suspected minimally complex left breast cyst is recommended. 2. Tissue sampling of the calcifications in the lateral superior right breast is recommended. Findings reviewed and discussed with the patient in the presence of the community mental health social worker, KATHERINE. Assessment: ACR BI-RADS 4 - SUSPICIOUS FINDING(S) - BIOPSY SHOULD BE CONSIDERED Recommendation: 1:Biopsy should be consideredRight Comments: Ordered By: VERONICA CUI Interpreted By: Chilo Pineda MD, 08/10/2024 11:02 AM Narrative 08/10/2024 11:07 AM LABOURERS [facility] [address] [place] [address] Examination: Digital bilateral diagnostic mammogram with 3-D tomography and left breast ultrasound. [id number] Exam Date/Time: 08/10/2024 9:07 AM Reason For [...] the patient, in the presence of the community mental health social worker, KATHERINE. There is mutual agreement. Patient desires to go to [place] for stereotactic biopsy. us Veronica Cui DO [...] VE NON-REACTI VE 04/16/2023 11:46 AM CDT [facility] HEP B CORE TOTAL AB NON-REACTI VE NON-REACTI VE 04/16/2023 12:16 PM CDT [facility] HEP B SURFACE AB NON-REACTI VE 04/16/2023 11:46 AM CDT [facility] HAV IGM NON-REACTI VE NON-REACTI VE 04/16/2023 12:16 PM CDT [facility] HEPATITIS C AB NON-REACTI VE NON-REACTI VE 04/16/2023 12:14 PM CDT [facility] 04/16/2023 7:34 AM CDT Veronica Cui DO LABORATORY Final Result [facility] [address] [place] [address], [place] [phone] * COLONOSCOPY GENERIC (07/28/2016) 07/28/2016 Narrative 07/28/2016 Ordered by an unspecified provider. us Documents Scanned SCANNING Final Result from Last 3 Months or Most Recently Relevant to Health Maintenance Insurance HU[employer] HUMANA Care Teams Scientific Helper Relationship Specialty Start Date End Date Veronica Cui DO [address] [place] [address] [place] [address] PCP - General FAMILY PRACTICE 01/19/23 Kash Fabian MD [address] [facility] [address] [place] [address] Physician INTERVENTIONAL CARDIOLOGY 09/04/20 Adina Quiñones MD [facility] [address] [place] [address] OBGYN 6/24/21 Dillan Campoverde MD [address] [place] [address] Surgeon GASTROENTEROLOGY 07/09/22
--- OUTSIDE RECORDS SUMMARY | 2024-11-30 09:54 | XMS_ITS | Clinical Summary ---
Author Organization [facility] Address [address] [place] [address] Care Team Providers Care Estimator Paperboard Boxes Name Role Phone Veronica Cui DO Primary Care Provider [phone] Allergies Active Allergy Reactions Criticality Noted Date Comments Lisinopril Cough Low 12/04/2022 Tomato Hives Medium 11/02/2018 Medications ibuprofen (ADVIL,MOTRIN) suspension 100 mg/5 mL 800 mg 3 (three) times a day Active vitamin K80-duwhi acid 0.5-1 mg tablet daily Acti ve [...] left hip 07/05/2024 Left hip pain 07/05/2024 Surgical History Surgery Date Site/Laterality Comments HYSTERECTOMY [...] on file Legal Sex Female 5:57 PM FOOD PROCESSING SCIENTIST Gender Identity Not on file Sexual Orientation Not on file 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 file Not on file Not on file Obstetrics History Para Term AB IAB SAB Ectopic Multiple Livin g Live Births 2 2 2 2 2 Date Outcome GA Total Labor Labor/2nd/3rd Weight Sex Type Anes PTL Lashaun A1 A5 Name Clin 1970 Term 3.487 kg (7 lb 11 oz) Vag-S pont Living 1985 Term 3.487 kg (7 lb 11 oz) Vag-S pont Living Last Filed Vital Signs Vital Sign Reading Time Taken Comments Blood Pressure 138/72 08/21/2020 11:32 AM FOOD PROCESSING SCIENTIST Pulse 0 04/24/2016 10:00 AM CDT Temperature - - Respiratory Rate - - Oxygen Saturation - - Inhaled Oxygen Concentration - - Weight 61.2 kg (135 lb) 07/19/2024 3:06 PM FOOD PROCESSING SCIENTIST Height 154.9 cm (5' 1 ) 07/19/2024 3:06 PM FOOD PROCESSING SCIENTIST Body Mass Index 25.51 07/19/2024 3:06 PM FOOD PROCESSING SCIENTIST Plan of Treatment Health Maintenance Due Date Last Done Comments Colon Cancer Screening-Colonoscopy 1955 Depression Screening 1955 Fall Risk Assessment 1955 Hepatitis C Screening 1955 Hepatitis B Screening 1971 Well Visit 65+ 08/21/2021 08/21/2020, 08/16/2019 Pneumococcal vaccine 65+ (2 of 2 - PCV) 12/31/2021 12/31/2020 Covid-19 Vaccine ( season) 2024 04/23/2021, 09/27/2020, 09/06/2020 Breast Cancer Screening-Mammogram 04/20/2024 04/20/2023, 04/20/2023, 02/21/2021 Influenza Vaccine (Season Ended) 2025 04/21/2023, 04/23/2021, 06/04/2020 Osteoporosis Screening-Bone Density Scan 04/20/2025 04/20/2023 DTaP/Tdap/Td Vaccine (2 - Td or Tdap) 10/04/2031 Zoster Vaccine Completed 12/06/2021, 10/03/2021 Insurance [employer] LIFE Care Teams Estimator Paperboard Boxes Relationship Specialty Start Date End Date Veronica Cui DO [address] [place] [address] [address] [place] [id number] PCP - General Sports Medicine 07/19/24
--- OUTSIDE RECORDS SUMMARY | 2024-11-30 09:54 | XMS_ITS | Encounter Summary ---
Author Organization [facility] Address [facility] [place] [address] Care Team Providers Care Tea Bag Packer Name Role Phone Stefanie Hardy MD Primary Care Pr ovider Unavailable Kash Fabian MD Unavailable [phone] Adina Quiñones MD Unavailable Dillan Campoverde MD Unavailable Unavailable Sunny Martinez, LEAD MAN OVER ALL DIES IN PATTERN SHOP-BC, Cora Primary Care Provider Veronica Cui DO Primary Care Provider [phone] Encounter Details Date Type Department Care Team (Late st Contact Info) Description 05/01/2022 MyChart Message [facility] Multispecialty Care - [address] [place] [address] Stefanie Hardy MD Medication refill [...] CDT Gender Identity Female 06/30/2021 1:08 PM SCHOOL TRANSPORTATION DIRECTOR Sexual Orientation Straight 06/30/2021 1: 08 PM SCHOOL TRANSPORTATION DIRECTOR 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 [place] [phone] Aaron Duggan MD [address] [address] documented as of this encounter Visit Diagnoses Not on filedocumented in this encounter Additional Health Concerns Assessment Noted Time PHQ-9 Depression Total Score: 0 10/02/19 22 10:08 AM CDT documented as of this encounter Care Teams Tea Bag Packer Relationship Specialty Start Date End Date Stefanie Hardy MD PCP - General FAMILY PRACTICE 08/15/20 12/21/22 Cora Correa [facility] [address] [place] [address] PCP - General Nurse Practitioner Family 12/22/2201/18 Veronica Cui DO [address] [place] [address] PCP - General FAMILY PRACTICE 01/19/23 Kash Fabian MD [address] [place] [address] [address] [place] [address] Physician INTERVENTIONAL CARDIOLOGY 09/04/20 Adina Quiñones MD [address] [place] [address] OBGYN 01/10/21 Dillan Campoverde MD [address] [place] [address] Surgeon GASTROENTEROLOGY 07/09/22 documented as of this encounter
--- OUTSIDE RECORDS SUMMARY | 2024-11-30 09:54 | XMS_ITS | Clinical Summary ---
Author Organization [facility] Ina Alcala Address [address] [place] [address] Care Team Providers Care Middle [employer] Baseball Coach Name Role Phone Unavailable Primary Care Provider Unavailabl e Allergies Active Allergy Reactions Criticality Noted Date Comments Lisinopril Cough Low 12/04/2022 Tomato Hives High 11/02/2018 Medications albuterol sulfate HFA 90 mcg/actuation aerosol inhaler Take 2 Puffs by inhalation see administration instructions. 5 Active atorvastatin (LIPITOR) 80 mg tablet Take 80 mg by mouth daily at bedtime. 5 Active busPIRone (BUSPAR) 5 mg tablet Take 5 mg by mouth daily. 5 Active cetirizine (ZyrTEC) 1 mg/mL Solution 1 mg by See Admin Instructions route daily. Active cholecalcifero l, vitamin D3, 1,000 unit Take 1,000 Units by mouth daily. Active fesoterodine SR 24 hour (TOVIAZ) 8 mg tablet Take 1 Tablet by mouth daily. 5 Active losartan (COZAAR) 50 mg tablet Take 1 Tablet by mouth daily. 5 Active metoprolol tartrate (LOPRESSOR) 25 mg tablet Take 0.5 Tablets by mouth 2 times daily. 5 Active nitroglycerin (NITROSTAT) 0.4 mg Tablet, Sublingual Place 0.4 mg under tongue every 5 minutes as needed for Chest Pain. 5 Active calcium carb/mag ox/zinc gluc (calcium CARBONATE-magn esium OXIDE-zinc GLUCONATE) 333-133-5 mg Tablet Take by mouth daily. Active tamoxifen (NOLVADEX) 20 mg tablet Take 1 Tablet (20 mg) by mouth daily. 90 Tablet 3 05/14/202 5 Active Active Problems No known active problems Encounters Date Type Department Care Team Description 11/30/2024 9:00 AM CDT Office Visit [facility] Oncology and Hematology [facility] [address] [place] [address] Juwan Torre MD Ductal carcinoma in situ (DCIS) of left breast (Primary Dx); Ductal carcinoma in situ (DCIS) of right breast from Last 3 Months Family History Medical History Relation Name Comments Diabetes Brother 1 Diabetes Brother 2 No Known Problems Brother 3 No Known Problems Child 1 No Known Problems Child 2 Heart Disease Father Colon Cancer Mother No Known Problems Sister 1 Heart Disease Sister 2 Relation Name Status Comments Brother 1 Alive Brother 2 Alive Brother 3 Alive Child 1 Alive Child 2 Alive Father Mother Sister 1 Alive Sister 2 Alive Social History Tobacco Use Types [...] on file Sexual Orientation Not on file Last Filed Vital Signs [...] - - Body Mass Index - - Plan of Treatment Upcoming Encounters Date Type Department Care Team (Late st Contact Info) Description 01/30/2025 9:45 AM CDT Office Visit [facility] Oncology and Hematology [facility] [address] [place] [phone] Juwan Torre MD [address] [facility] [employer] [address] [place] [address] Health Maintenance Due Date Last Done Comments FIT-DNA Q 3 years 1998 FIT/FOBT Q 1 year 1998 Flex Sig/CT Colonography Q 5 years 1998 PNEUMOCOCCAL VACCINE 50+ YEA RS (2 of 2 - PCV) 12/31/2021 12/31/2020 INFLUENZA VACCINE (#1) 2024 3, 04/23/2021, 06/04/2020 COVID-19 Vaccine ( - 2023-2 5 season) 2024 04/23/2021, 09/27/2020, 09/06/2020 Medicare Advantage ([place]) Preventative Visit/Annual Wellness Visit 07/20/2024 08/21/2020, 08/16/2019 BREAST CANCER SCREENING 08/10/2025 08/10/19 25, 04/20/2023, 02/21/2021 COLORECTAL SCREENING 07/28/2026 07/28/2016 Colorectal Cancer Screening 07/28/2026 RSV VACCINE (60+ or ) (1 - 1-dose 75+ series) 2028 OSTEOPOROSIS SCREENING 04/20/2028 3, 04/20/2023, 04/12/2021, Additional history exists DTAP/TDAP/TD VACCINES (2 - T d or Tdap) 10/04/2031 10/03/2021 ZOSTER VACCINE Completed 12/06/2021, 10/03/2021 Insurance [employer] [facility]
--- OUTSIDE RECORDS SUMMARY | 2024-11-30 09:54 | XMS_ITS | Encounter Summary ---
Author Organization [place] Address [facility] [place] [address] Care Team Providers Care Cigarette Tester Name Role Phone Stefanie Hardy MD Primary Care Pr ovider Unavailable Kash Fabian MD Unavailable [phone] Adina Quiñones MD Unavailable Dillan Campoverde MD Unavailable Unavailable Sunny Martinez, CLAIMS SERVICE REPRESENTATIVE-BC, Cora Primary Care Provider Veronica Cui DO Primary Care Provider [phone] Encounter Details Date Type Department Care Team (Latest Contact Info) Description 07/16/2021 MyChart Message Enc [facility] Medical Group Multispecialty Care - [facility] [address] [facility], [address] [place] [address] Shin Mcmullen MD [address] [place], [place] [phone] Physical Therapy Social History Tobacco Use Types [...] CDT Gender Identity Female 06/30/2021 1:08 PM SERVICE CLEANER Sexual Orientation Straight 06/30/2021 1: 08 PM SERVICE CLEANER COVID-19 Exposure Response Date Recorded In the last month, have you been in contact with someone who was confirmed or suspected to have Coronavirus / COVID-19? No / Unsure 07/02/2021 9:22 AM SERVICE CLEANER documented as of this encounter Plan of Treatment Upcoming Encounters Date Type Department Care Team (Late st Contact Info) Description 02/02/2025 9:20 AM CDT Office Visit [facility] [address] [address] Veronica Cui DO [address] [place] [address] 08/31/2025 10:30 AM SERVICE CLEANER [facility] [address] [place] [phone] Aaron Duggan MD [address] [address] documented as of this encounter Visit Diagnoses Not on filedocumented in this encounter Additional Health Concerns Assessment Noted Time PHQ-9 Depression Total Score: 0 01/11/20 9:16 AM CDT documented as of this encounter Care Teams Cigarette Tester Relationship Specialty Start Date End Date Stefanie Hardy MD PCP - General FAMILY PRACTICE 08/15/20 12/21/22 Cora Correa V, [facility] [address] [place] [address] PCP - General Nurse Practitioner Family 12/22/2201/18 Veronica Cui DO [address] [place] [address] [place] [address] PCP - General FAMILY PRACTICE 01/19/23 Kash Fabian MD [facility] [address] [facility] [address] [place] [address] Physician INTERVENTIONAL CARDIOLOGY 09/04/20 Adina Quiñones MD [facility] [address] OBGYN 01/10/21 Dillan Campoverde MD [address] [place] [address] Surgeon GASTROENTEROLOGY 07/09/22 documented as of this encounter
--- OUTSIDE RECORDS SUMMARY | 2024-11-30 09:54 | XMS_ITS | Encounter Summary ---
Author Organization [facility] Address [facility] [place] [address] Care Team Providers Care Supervisor Shrimp Pond Name Role Phone Stefanie Hardy MD Primary Care Pr ovider Unavailable Kash Fabian MD Unavailable [phone] Adina Quiñones MD Unavailable Dillan Campoverde MD Unavailable Unavailable Sunny Martinez, MERCHANDISE MARKER-BC, Cora Primary Care Provider Veronica Cui DO Primary Care Provider [phone] Encounter Details Date Type Department Care Team (Late st Contact Info) Description 02/04/2021 MyChart Message Enc [facility] - [facility] [address] [facility] [place] [address] Tommy Wang PA [address] [facility] [place], [place] [phone] Pain Medicine Social History Tobacco Use Types [...] CDT Gender Identity Female 06/30/2021 1:08 PM NUCLEAR RADIOLOGIST Sexual Orientation Straight 06/30/2021 1: 08 PM NUCLEAR RADIOLOGIST COVID-19 Exposure Response Date Recorded In the last month, have you been in contact with someone who was confirmed or suspected to have Coronavirus / COVID-19? No / Unsure 02/06/2021 10:14 AM CDT documented as of this encounter Plan of Treatment Upcoming Encounters Date Type Department Care Team (Late st Contact Info) Description 02/02/2025 9:20 AM CDT Office Visit [facility] [address] [place] [address] Veronica Cui DO [address] [place] [address] 08/31/2025 10:30 AM NUCLEAR RADIOLOGIST Office Visit [facility] [address] [place] [phone] Aaron Duggan MD [address] [address] documented as of this encounter Visit Diagnoses Not on filedocumented in this encounter Additional Health Concerns Assessment Noted Time PHQ-9 Depression Total Score: 0 01/11/20 9:16 AM CDT documented as of this encounter Care Teams Supervisor [place] Relationship Specialty Start Date End Date Stefanie Hardy MD PCP - General FAMILY PRACTICE 08/15/20 12/21/22 Cora Correa V, [facility] [address] [place] [address] PCP - General Nurse Practitioner Family 12/22/2201/18 Veronica Cui DO [address] [place] [address] [place] [address] PCP - General FAMILY PRACTICE 01/19/23 Kash Fabian MD [facility] [address] [facility] [address] [place] [address] Physician INTERVENTIONAL CARDIOLOGY 09/04/20 Adina Quiñones MD [facility] [address] [address] OBGYN 01/10/21 Dillan Campoverde MD [address] [place] [address] Surgeon GASTROENTEROLOGY 07/09/22 documented as of this encounter
--- OUTSIDE RECORDS SUMMARY | 2024-11-30 09:54 | XMS_ITS | Referral Summary ---
Author Organization [facility] Address [address] [place] [address] Care Team Providers Care Math Teacher Name Role Phone Veronica Cui DO Primary Care Provider [phone] Allergies Active Allergy Reactions Criticality Noted Date Comments Lisinopril Cough Low 12/04/2022 Tomato Hives Medium 11/02/2018 Medications ibuprofen (ADVIL,MOTRIN) suspension 100 mg/5 mL 800 mg 3 (three) times a day Active vitamin Q27-fgtij acid 0.5-1 mg tablet daily Acti ve [...] on file Legal Sex Female 5:57 PM VEHICLE ASSEMBLER Gender Identity Not on file Sexual Orientation Not on file 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 Not on file Not on file Not on file Last Filed Vital Signs Vital Sign Reading Time Taken Comments Blood Pressure 138/72 08/21/2020 11:32 AM VEHICLE ASSEMBLER Pulse 0 04/24/2016 10:00 AM CDT Temperature - - Respiratory Rate - - Oxygen Saturation - - Inhaled Oxygen Concentration - - Weight 61.2 kg (135 lb) 07/19/2024 3:06 PM VEHICLE ASSEMBLER Height 154.9 cm (5' 1 ) 07/19/2024 3:06 PM VEHICLE ASSEMBLER Body Mass Index 25.51 07/19/2024 3:06 PM VEHICLE ASSEMBLER Plan of Treatment Not on file Insurance [facility] MEDICARE HMO Nourish Care Teams Math Teacher Relationship Specialty Start Date End Date Veronica Cui DO [address] [place] [address] Dr [place] [id number] PCP - General Sports Medicine 07/19/24
[2024-11-30 10:01] LABS: Basophils Percent Auto 0.7 % (0.2-1.2); Eosinophils Absolute Auto 0.1 K/mm3 (0-0.3); Eosinophils Percent Auto 1.2 % (0-4.4); Hematocrit 41.9 % (37.0-47.0); Hemoglobin 13.3 g/dL (12.0-15.0); Immature Granulocyte Absolute 0.01 K/mm3 (0.00-0.031); Immature Granulocyte Percent A 0.2 % (0-0.5); Lymphocytes Absolute Auto 1.69 K/mm3 (0.9-3.2); Lymphocytes Percent Auto 29.8 % (18.3-44.2); Mean Corpuscular HGB Conc 31.7 g/dl (32-36); Mean Corpuscular Hemoglobin 31.1 pg (26-34); Mean Corpuscular Volume 98.1 fl (80-100); Monocytes Absolute Auto 0.6 K/mm3 (0.1-0.6); Monocytes Percent Auto 10.6 % (2.6-8.5); Neutrophils Absolute Auto 3.3 K/mm3 (1.3-6.7); Neutrophils Percent Auto 57.5 % (45.5-73.1); Platelet Count Result 218 k/mm3 (150-375); Red Blood Count 4.27 M/mm3 (4.2-5.4); Red Cell Distribution Width 12.7 % (11.5-14.5); White Blood Count 5.7 K/mm3 (4.5-10.0)
[2024-11-30 13:43] LABS: Alanine Aminotransferase 31 U/L (6-35); Albumin Level 4.4 g/dL (3.5-5.1); Alkaline Phosphatase 116 U/L (38-126); Anion Gap 6 mmol/L (4-12); Aspartate Amino Transferase 50 U/L (14-36); Bilirubin,Total 0.6 mg/dL (0.2-1.3); Blood Urea Nitrogen 7 mg/dL (7-17); Calcium 9.4 mg/dL (8.4-10.2); Carbon Dioxide 30 mmol/L (22-30); Chloride 103 mmol/L (98-107); Estimated Glomerular Filt Rate > 60; Glucose 95 mg/dL (65-110); Potassium 4.4 mmol/L (3.4-5.0); Sodium 139 mmol/L (137-145)
== END 2024-11-30 09:44 | disposition home or self-care (01) ==
PROVIDERS: PCP Family Medicine Sports Medicine; Visit Provider Internal Medicine Hematology & Oncology
DX: D05.12 Intraductal carcinoma in situ of left breast (principal)
CPT/HCPCS: 36415; 80053; 85025

== ENCOUNTER 2025-03-30 08:59 | Outpatient (CLI) | payer MEDICARE, OTHER, SELFPAY ==
[2025-03-30 09:28] LABS: Hematocrit 41.9 % (37.0-47.0); Hemoglobin 13.9 g/dL (12.0-15.0); Immature Granulocyte Percent A 0.2 % (0-0.5); Lymphocytes Absolute Auto 1.68 K/mm3 (0.9-3.2); Mean Corpuscular HGB Conc 33.2 g/dl (32-36); Mean Corpuscular Hemoglobin 32.7 pg (26-34); Mean Corpuscular Volume 98.6 fl (80-100); Nucleated Red Blood Cells Absolute Auto 0.000 K/mm3 (0.0-0.012); Nucleated Red Blood Cells Perc 0.0 % (0.0-0.2); Platelet Count Result 195 k/mm3 (150-375); Red Blood Count 4.25 M/mm3 (4.2-5.4); White Blood Count 4.7 K/mm3 (4.5-10.0)
[2025-03-30 09:35] LABS: Blood Urea Nitrogen 7 mg/dL (8-26); Carbon Dioxide 30 mmol/L (22-30); Chloride 98 mmol/L (98-109); Estimated Glomerular Filt Rate > 60; Glucose 135 mg/dL (70-105); Ionized Calcium (POC) 1.25 mmol/L (1.11-1.31); Potassium 3.7 mmol/L (3.5-4.9); Sodium 139 mmol/L (138-146)
--- OUTSIDE RECORDS SUMMARY | 2025-03-30 09:36 | XMS_ITS | Clinical Summary ---
Author Organization [facility] Address [address] [place] [address] Care Team Providers Care Manufacturer Name Role Phone Veronica Cui DO Primary Care Provider [phone] Allergies Active Allergy Reactions Criticality Noted Date Comments Lisinopril Cough Low 12/04/2022 Tomato Hives Medium 11/02/2018 Medications ibuprofen (ADVIL,MOTRIN) suspension 100 mg/5 mL 800 mg 3 (three) times a day Active vitamin D00-xxvpa acid 0.5-1 mg tablet daily Acti ve [...] on file Legal Sex Female 5:57 PM CHILD CARE SITTER Gender Identity Not on file Sexual Orientation Not on file 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 file Not on file [...] Comments Blood Pressure 138/72 08/21/2020 11:32 AM CHILD CARE SITTER Pulse 0 04/24/2016 10:00 AM CDT Temperature - - Respiratory Rate - - Oxygen Saturation - - Inhaled Oxygen Concentration - - Weight 61.2 kg (135 lb) 07/19/2024 3:06 PM CHILD CARE SITTER Height 154.9 cm (5' 1) 07/19/2024 3:06 PM CHILD CARE SITTER Body Mass Index 25.51 07/19/2024 3:06 PM CHILD CARE SITTER Plan of Treatment Health Maintenance Due Date Last Done Comments Colon Cancer Screening-Colonoscopy 1955 Depression Screening 1953 Fall Risk Assessment 1955 Hepatitis C Screening 1955 Hepatitis B Screening 1971 Well Visit 65+ 08/21/2021 08/21/2020, 08/16/2019 Pneumococcal vaccine 65+ (2 of 2 - PCV) 12/31/2021 12/31/2020 Breast Cancer Screening-Mammogram 04/20/2024 04/20/2023, 04/20/2023, 02/21/2021 Covid-19 Vaccine ( season) 2025 04/23/2021, 09/27/2020, 09/06/2020 Influenza Vaccine (#1) 2025 , 04/23/2021, 06/04/2020 Osteoporosis Screening-Bone Density Scan 04/20/2025 04/20/2023 DTaP/Tdap/Td Vaccine (2 - Td or Tdap) 10/04/2031 Zoster Vaccine Completed 12/06/2021, 10/03/2021 Insurance [employer] Care Teams Manufacturer Relationship Specialty Start Date End Date Veronica Cui DO [address] [place] [address] [address] [place] [id number] PCP - General Sports Medicine 07/19/24
--- OUTSIDE RECORDS SUMMARY | 2025-03-30 09:36 | XMS_ITS | Encounter Summary ---
Author Organization [facility] Address [address] [place] [address] Care Team Providers Care Asset Protection Associate Name Role Phone Veronica Cui DO Primary Care Provider [phone] Encounter Details Date Type Department Care Team (Late st Contact Info) Description 03/28/2025 External Device Data [place] ABSTRACTION Provider, Abstract NO ADDRESS ON FILE Social History Tobacco Use Types Packs/Day Years Used Date Smoking Tobacco: Former Cigarettes 2 55.7 S tarted: 07/20/1969 Smokeless Tobacco: Never Alcohol Use Standard Drinks/Week Comments Never 0 [...] Care Team (Late st Contact Info) Description 05/05/2025 10:30 AM CDT Office Visit [facility]cology [facility] H[facility] [place] [address] [place] [address] [facility] [address] [place] [address] Juwan Torre MD [address] [facility] [address] [place] [address] documented as of this encounter Visit Diagnoses Not on filedocumented in this encounter Care Teams Asset Protection Associate Relationship Specialty Start Date End Date Veronica Cui DO [address] [place] [address] PCP - General Family Practice 02/10/25 documented as of this encounter
--- OUTSIDE RECORDS SUMMARY | 2025-03-30 09:36 | XMS_ITS | Clinical Summary ---
Author Organization [facility] Ina Alcala Address [address] [place] [address] Care Team Providers Care Sales Representative Wire Rope Name Role Phone Veronica Cui DO Primary Care Provider Allergies Active Allergy Reactions Criticality Noted Date [...] mg) by mouth daily. 90 Tablet 3 Active Active Problems No known active problems Encounters Date Type Department Care Team Description 03/28/2025 External Device Data STL ABSTRACTION Provider, Abstract 02/01/2025 External Device Data ST[facility] ABSTRACTION Provider, Abstract 01/31/2025 External Device Data [facility] ABSTRACTION Provider, Abstract 01/03/2025 External Device Data STL ABSTRACTION Provider, Abstract from Last 3 Months Family History Medical [...] 55.7 S tarted: 07/20/1969 Smokeless Tobacco: Never Tobacco [...] Description 05/05/2025 10:30 AM CDT Office Visit [facility] Oncology and Hematology [facility] [address] [place] [address] Juwan Torre MD [address] [facility] [employer] [address] [place] [address] Health Maintenance Due Date Last Done Comments FIT-DNA Q 3 years 1998 FIT/FOBT Q 1 year 1998 Flex Sig/CT Colonography Q 5 years 1998 PNEUMOCOCCAL VACCINE 50+ YEA RS (2 of 2 - PCV) 12/31/2021 12/31/2020 Medicare [place] ([place]) Preventative Visit/Annual Wellness Visit 07/20/2024 08/21/2020, 08/16/2019 INFLUENZA VACCINE (#1) 2025 , 04/23/2021, 06/04/2020 COVID-19 Vaccine (4 - 2024-2 6 season) 2025 04/23/2021, 09/27/2020, 09/06/2020 BREAST CANCER SCREENING 08/10/2025 08/10/19 25, 04/20/2023, 02/21/2021 COLORECTAL SCREENING 07/28/2026 07/28/2016 Colorectal Cancer Screening 07/28/2026 RSV VACCINE (60+ or ) (1 - 1-dose 75+ series) 2028 OSTEOPOROSIS SCREENING 04/20/2028 3, 04/20/2023, 04/12/2021, Additional history exists DTAP/TDAP/TD VACCINES (2 - T d or Tdap) 10/04/2031 10/03/2021 ZOSTER VACCINE Completed 12/06/2021, 10/03/2021 Insurance [email or web address] [facility] MCR Care Teams Sales Representative Wire Rope Relationship Specialty Start Date End Date Veronica Cui DO [address] [place] [address] [place] [address] PCP - General Family Practice 02/10/25
[2025-03-30 10:06] LABS: Alanine Aminotransferase 49 U/L (6-35); Albumin Level 4.3 g/dL (3.5-5.1); Alkaline Phosphatase 84 U/L (38-126); Anion Gap 5 mmol/L (4-12); Aspartate Amino Transferase 69 U/L (14-36); Bilirubin,Total 0.8 mg/dL (0.2-1.3); Blood Urea Nitrogen 8 mg/dL (7-17); Calcium 9.5 mg/dL (8.4-10.2); Carbon Dioxide 31 mmol/L (22-30); Chloride 100 mmol/L (98-107); Estimated Glomerular Filt Rate > 60; Glucose 134 mg/dL (65-110); Potassium 3.8 mmol/L (3.4-5.0); Sodium 136 mmol/L (137-145); Total Protein 7.0 g/dL (6.3-8.2)
== END 2025-03-30 09:00 | disposition home or self-care (01) ==
PROVIDERS: Visit Provider Internal Medicine Hematology & Oncology
DX: D05.12 Intraductal carcinoma in situ of left breast (principal)
CPT/HCPCS: 36415; 80047; 80053; 85025

== ENCOUNTER 2025-05-11 09:57 | Outpatient (CLI) | payer MEDICARE, OTHER, SELFPAY ==
[2025-05-11 10:11] LABS: Hematocrit 43.1 % (37.0-47.0); Hemoglobin 14.2 g/dL (12.0-15.0); Immature Granulocyte Percent A 0.2 % (0-0.5); Lymphocytes Absolute Auto 1.63 K/mm3 (0.9-3.2); Mean Corpuscular HGB Conc 32.9 g/dl (32-36); Mean Corpuscular Hemoglobin 32.5 pg (26-34); Mean Corpuscular Volume 98.6 fl (80-100); Nucleated Red Blood Cells Absolute Auto 0.000 K/mm3 (0.0-0.012); Nucleated Red Blood Cells Perc 0.0 % (0.0-0.2); Platelet Count Result 233 k/mm3 (150-375); Red Blood Count 4.37 M/mm3 (4.2-5.4); White Blood Count 5.0 K/mm3 (4.5-10.0)
[2025-05-11 10:15] LABS: Blood Urea Nitrogen 5 mg/dL (8-26); Carbon Dioxide 33 mmol/L (22-30); Chloride 99 mmol/L (98-109); Estimated Glomerular Filt Rate > 60; Glucose 109 mg/dL (70-105); Ionized Calcium (POC) 1.23 mmol/L (1.11-1.31); Potassium 4.1 mmol/L (3.5-4.9); Sodium 139 mmol/L (138-146)
--- OUTSIDE RECORDS SUMMARY | 2025-05-11 10:46 | XMS_ITS | Clinical Summary ---
Author Organization [facility] Address [address] [place] [address] Care Team Providers Care Manager Urgent Care Name Role Phone Veronica Cui DO Primary Care Provider [phone] Allergies Active Allergy Reactions Criticality Noted Date Comments Lisinopril Cough Low 12/04/2022 Tomato Hives Medium 11/02/2018 Medications ibuprofen (ADVIL,MOTRIN) suspension 100 mg/5 mL 800 mg 3 (three) times a day Active vitamin N76-awbly acid 0.5-1 mg tablet daily Acti ve [...] on file Legal Sex Female 5:57 PM ICE CREAM DIPPER Gender Identity Not on file Sexual Orientation Not on file 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 Not on file Not [...] Comments Blood Pressure 138/72 08/21/2020 11:32 AM ICE CREAM DIPPER Pulse 0 04/24/2016 10:00 AM CDT Temperature - - Respiratory Rate - - Oxygen Saturation - - Inhaled Oxygen Concentration - - Weight 61.2 kg (135 lb) 07/19/2024 3:06 PM ICE CREAM DIPPER Height 154.9 cm (5' 1) 07/19/2024 3:06 PM ICE CREAM DIPPER Body Mass Index 25.51 07/19/2024 3:06 PM ICE CREAM DIPPER Plan of Treatment Health Maintenance Due Date [...] 10/04/2031 Zoster Vaccine Completed 12/06/2021, 10/03/2021 Insurance [employer] Care Teams Manager Urgent Care Relationship Specialty Start Date End Date Veronica Cui DO [address] [place] [address] [address] [place] [id number] PCP - General Sports Medicine 07/19/24
[2025-05-11 12:10] LABS: Alanine Aminotransferase 30 U/L (6-35); Albumin Level 4.2 g/dL (3.5-5.1); Alkaline Phosphatase 93 U/L (38-126); Anion Gap 7 mmol/L (4-12); Aspartate Amino Transferase 53 U/L (14-36); Bilirubin,Total 0.7 mg/dL (0.2-1.3); Blood Urea Nitrogen 7 mg/dL (7-17); Calcium 9.5 mg/dL (8.4-10.2); Carbon Dioxide 31 mmol/L (22-30); Chloride 99 mmol/L (98-107); Estimated Glomerular Filt Rate > 60; Glucose 110 mg/dL (65-110); Potassium 4.2 mmol/L (3.4-5.0); Sodium 137 mmol/L (137-145); Total Protein 7.2 g/dL (6.3-8.2)
== END 2025-05-11 09:58 | disposition home or self-care (01) ==
PROVIDERS: Visit Provider Internal Medicine Hematology & Oncology
DX: D05.12 Intraductal carcinoma in situ of left breast (principal)
CPT/HCPCS: 36415; 80047; 80053; 85025